=== PATIENT | female | born 1940 | race Asian ===

== ENCOUNTER 2017-02-07 18:12 | Emergency (ER) | payer SELFPAY ==
[~2017-02-07] VITALS: Ht 152.4 cm; Wt 64.9 kg
[2017-02-07 21:27] VITALS: BP 123/75
[2017-02-07 22:23] LABS: Basophils # (auto) 0 uL; Basophils % (auto) 0.2 % (0.0-2.0); Eosinophils # (auto) 0 uL; Eosinophils % (auto) 0.1 % (0.0-7.0); Hematocrit 41.2 % (36.0-46.0); Hemoglobin 13.8 g/dL (12.2-16.2); Lymphocytes # (auto) 1.7 uL; Lymphocytes % (auto) 19.9 % (10.0-50.0); Mean Corpuscular Hemoglobin 32.9 pg (28.0-32.0); Mean Corpuscular Hgb Conc. 33.6 g/dL (32.0-36.0); Mean Corpuscular Volume 97.9 fL (80.0-100.0); Mean Platelet Volume 8.4 fL (6.9-10.8); Monocytes # (auto) 0.6 uL; Monocytes % (auto) 6.9 % (0.0-12.0); Neutrophils # (auto) 6.2 uL; Neutrophils % (auto) 72.9 % (37.0-80.0); Nucleated Red Blood Cells % 0.1 %; Platelet Count (auto) 163 10^3/uL (140-450); Red Cell Distribution Width 13.2 % (11.8-14.3); White Blood Cell 8.5 10^3/uL (4.4-10.8)
[2017-02-07 22:43] LABS: Albumin 3.4 g/dL (3.4-5.0); Bilirubin, Total 0.6 mg/dL (0.2-1.0); Calcium 8.3 mg/dL (8.5-10.1); Potassium 3.9 mmol/L (3.5-5.1); Total Protein 7.6 g/dL (6.4-8.2)
[2017-02-07 23:01] LABS: INR 0.97 (0.9-1.15); Partial Thromboplastin Time 25.8 sec (22.64-33.71); Prothrombin Time 10.6 sec (9.37-12.3)
== END 2017-02-07 23:32 | disposition home or self-care (01) ==
LOC: ER 18:12
DX: J32.9 Chronic sinusitis, unspecified (principal); R04.0 Epistaxis; I10 Essential (primary) hypertension; Z98.51 Tubal ligation status
CPT/HCPCS: 36415; 70450; 80053; 85025; 85610; 85730

== ENCOUNTER 2020-06-18 08:31 | Inpatient (IN) | payer MEDICAID ==
[~2020-06-18] VITALS: Ht 152.4 cm; Wt 58.7 kg
[2020-06-18 09:12] LABS: Basophils # (auto) 0 10 ^3/uL (0-0.2); Basophils % (auto) 0.1 % (0.0-2.0); Eosinophils # (auto) 0 10 ^3/uL (0-0.8); Eosinophils % (auto) 0.2 % (0.0-7.0); Hematocrit 32.1 % (36.0-46.0); Hemoglobin 10.6 g/dL (12.2-16.2); Lymphocytes # (auto) 1.5 10 ^3/uL (0.4-5.4); Lymphocytes % (auto) 17.4 % (10.0-50.0); Mean Corpuscular Hemoglobin 31.1 pg (28.0-32.0); Mean Corpuscular Hgb Conc. 33.2 g/dL (32.0-36.0); Mean Corpuscular Volume 93.7 fL (80.0-100.0); Monocytes # (auto) 0.6 10 ^3/uL (0-1.3); Monocytes % (auto) 7.1 % (0.0-12.0); Neutrophils # (auto) 6.6 10 ^3/uL (1.6-8.6); Neutrophils % (auto) 75.2 % (37.0-80.0); Nucleated Red Blood Cells % 0.1 %; Red Blood Cells 3.42 10^6/uL (4.0-5.20); Red Cell Distribution Width 13.3 % (11.8-14.3); White Blood Cell 8.8 10^3/uL (4.4-10.8)
[2020-06-18 09:30] LABS: Albumin 3.3 g/dL (3.4-5.0); Anion Gap 10 (5-15); Blood Urea Nitrogen 28 mg/dL (7-18); Calcium 8.9 mg/dL (8.5-10.1); Carbon Dioxide 24 mmol/L (21-32); Chloride 106 mmol/L (98-107); Glucose 105 mg/dL (74-106); Magnesium 2.3 mg/dL (1.6-2.6); Potassium 3.5 mmol/L (3.5-5.1); Sodium 140 mmol/L (136-145)
[2020-06-18 09:36] LABS: Alanine Aminotransferase 38 U/L (13-56); Alkaline Phosphatase 73 U/L (45-117); Aspartate Aminotransferase 34 U/L (15-37); BUN/Creatinine Ratio 43.8; Bilirubin, Total 0.4 mg/dL (0.2-1.0); GFR African American 115 mL/min; GFR Non-African American 95 mL/min; Total Protein 7.5 g/dL (6.4-8.2)
[2020-06-18 11:18] LABS: Urine Bacteria NONE SEEN /hpf (None Seen); Urine Blood 1+ /uL (Negative); Urine Mucus FEW (None Seen); Urine Specific Gravity 1.023 (1.001-1.035); Urine WBC 28 /hpf (0 - 5)
[2020-06-18] MEDS ORDERED: ONDANSETRON HCL 4 MG/2 ML VIAL IV PRN (13:30)
[2020-06-18] MEDS ORDERED: NITROGLYCERIN 0.4 MG SL TAB SL PRN (13:30)
[2020-06-18] MEDS ORDERED: LORazepam 2MG/ML-1ML VIAL IV PRN (13:30)
[2020-06-18] MEDS ORDERED: LABETALOL HCL 5 MG/ML 4ML SYRINGE IV PRN (13:30)
[2020-06-18] MEDS ORDERED: POTASSIUM CHLORIDE 20 MEQ, LIDOCAINE 1% (LOCAL ANESTH.) 2 ML in SODIUM CHL 0.9% 100 ML IV ONE (13:30)
[2020-06-18] MEDS: SODIUM CHLORIDE 0.9% 1,000 ML IV SCH ×2 (13:37→15:30)
[2020-06-18] MEDS ORDERED: PRAV20TA3 PO (15:09)
[2020-06-18] MEDS ORDERED: METF-869 PO (15:09)
[2020-06-18] MEDS ORDERED: ATEN25TA PO (15:09)
[2020-06-18 15:10] LABS: INR 0.95 (0.9-1.15); Partial Thromboplastin Time 21.7 sec (23.0-31.2)
[2020-06-18 16:33] VITALS: BP 139/71
[2020-06-18] MEDS: MORPHINE SULFATE INJECTION 2 MG/ML SYRG IV PRN (16:58)
[2020-06-18 22:00] VITALS: BP 143/74
[2020-06-19 05:00] VITALS: BP 129/74
[2020-06-19 07:21] LABS: Basophils # (auto) 0 10 ^3/uL (0-0.2); Basophils % (auto) 0.2 % (0.0-2.0); Eosinophils # (auto) 0 10 ^3/uL (0-0.8); Eosinophils % (auto) 0.1 % (0.0-7.0); Hematocrit 29.9 % (36.0-46.0); Hemoglobin 10.1 g/dL (12.2-16.2); Lymphocytes # (auto) 1.9 10 ^3/uL (0.4-5.4); Lymphocytes % (auto) 20.2 % (10.0-50.0); Mean Corpuscular Hemoglobin 32.1 pg (28.0-32.0); Mean Corpuscular Hgb Conc. 33.9 g/dL (32.0-36.0); Mean Corpuscular Volume 94.5 fL (80.0-100.0); Monocytes # (auto) 0.6 10 ^3/uL (0-1.3); Monocytes % (auto) 6.9 % (0.0-12.0); Neutrophils # (auto) 6.8 10 ^3/uL (1.6-8.6); Neutrophils % (auto) 72.6 % (37.0-80.0); Nucleated Red Blood Cells % 0.3 %; Red Blood Cells 3.16 10^6/uL (4.0-5.20); Red Cell Distribution Width 13.6 % (11.8-14.3); White Blood Cell 9.3 10^3/uL (4.4-10.8)
[2020-06-19 08:00] VITALS: BP 149/75
[2020-06-19] MEDS: cefTRIAXone 1GM/50ML D5W 50 ML IV SCH (08:48)
[2020-06-19] MEDS: MORPHINE SULFATE INJECTION 2 MG/ML SYRG IV PRN ×3 (08:50→20:26)
[2020-06-19] MEDS ORDERED: DEXTROSE (50%) 50ML SYRG IV PRN (09:15)
[2020-06-19] MEDS: PANTOPRAZOLE 40 MG/10 ML VIAL INJ IV SCH (10:03)
[2020-06-19] MEDS: InsuLIN REG 1unit/0.01ml Soln (100units/ml) SC SCH ×3 (11:09→22:47)
[2020-06-19] MEDS: ACCU-CHEK COMFORT CURVE STRIP VI SCH ×3 (11:09→22:45)
[2020-06-19 12:00] VITALS: BP 121/74
[2020-06-19 16:00] VITALS: BP 145/80
[2020-06-19] MEDS ORDERED: AMIODARONE HCL 150 MG in D5W 5% 100 ML IV ONE (21:30)
[2020-06-19] MEDS ORDERED: AMIODARONE HCL (50 MG/ ML) 3 ML VIAL IV ONE (21:41)
[2020-06-19] MEDS ORDERED: AMIODARONE 450mg/250ml AE 250 ML IV ONE (21:42)
[2020-06-19 21:44] LABS: Basophils # (auto) 0 10 ^3/uL (0-0.2); Basophils % (auto) 0.2 % (0.0-2.0); Eosinophils # (auto) 0 10 ^3/uL (0-0.8); Eosinophils % (auto) 0.3 % (0.0-7.0); Hematocrit 28.5 % (36.0-46.0); Hemoglobin 9.5 g/dL (12.2-16.2); Lymphocytes # (auto) 2.3 10 ^3/uL (0.4-5.4); Lymphocytes % (auto) 20.4 % (10.0-50.0); Mean Corpuscular Hgb Conc. 33.2 g/dL (32.0-36.0); Mean Corpuscular Volume 93.5 fL (80.0-100.0); Monocytes # (auto) 0.8 10 ^3/uL (0-1.3); Monocytes % (auto) 7.1 % (0.0-12.0); Red Blood Cells 3.05 10^6/uL (4.0-5.20); Red Cell Distribution Width 13.5 % (11.8-14.3); White Blood Cell 11.1 10^3/uL (4.4-10.8)
[2020-06-19 22:00] VITALS: BP 116/68
[2020-06-19] MEDS: AMIODARONE 450mg/250ml AE 250 ML IV SCH (22:15)
[2020-06-19 22:20] LABS: Albumin 2.8 g/dL (3.4-5.0); Anion Gap 9 (5-15); Blood Urea Nitrogen 20 mg/dL (7-18); Calcium 8.3 mg/dL (8.5-10.1); Carbon Dioxide 22 mmol/L (21-32); Chloride 109 mmol/L (98-107); Glucose 136 mg/dL (74-106); Magnesium 1.9 mg/dL (1.6-2.6); Potassium 3.3 mmol/L (3.5-5.1); Sodium 140 mmol/L (136-145)
[2020-06-19 22:24] LABS: Alanine Aminotransferase 28 U/L (13-56); Alkaline Phosphatase 67 U/L (45-117); Aspartate Aminotransferase 23 U/L (15-37); BUN/Creatinine Ratio 35.1; Bilirubin, Total 0.3 mg/dL (0.2-1.0); GFR African American 132 mL/min; GFR Non-African American 109 mL/min; Phosphorus 3.3 mg/dL (2.5-4.90); Total Protein 6.8 g/dL (6.4-8.2)
[2020-06-20] MEDS: SODIUM CHLORIDE 0.9% 1,000 ML IV SCH ×2 (00:43→15:30)
[2020-06-20] MEDS: MORPHINE SULFATE INJECTION 2 MG/ML SYRG IV PRN ×3 (01:12→14:00)
[2020-06-20 05:00] VITALS: BP 145/77
[2020-06-20] MEDS: ACCU-CHEK COMFORT CURVE STRIP VI SCH ×4 (06:21→22:44)
[2020-06-20] MEDS: InsuLIN REG 1unit/0.01ml Soln (100units/ml) SC SCH ×4 (06:21→22:44)
[2020-06-20 07:22] LABS: Basophils # (auto) 0 10 ^3/uL (0-0.2); Basophils % (auto) 0.3 % (0.0-2.0); Eosinophils # (auto) 0 10 ^3/uL (0-0.8); Eosinophils % (auto) 0.2 % (0.0-7.0); Hematocrit 27.7 % (36.0-46.0); Hemoglobin 9.5 g/dL (12.2-16.2); Lymphocytes # (auto) 1.4 10 ^3/uL (0.4-5.4); Lymphocytes % (auto) 16.9 % (10.0-50.0); Mean Corpuscular Hemoglobin 32.2 pg (28.0-32.0); Mean Corpuscular Hgb Conc. 34.3 g/dL (32.0-36.0); Mean Corpuscular Volume 93.8 fL (80.0-100.0); Monocytes # (auto) 0.6 10 ^3/uL (0-1.3); Monocytes % (auto) 7.3 % (0.0-12.0); Neutrophils # (auto) 6.3 10 ^3/uL (1.6-8.6); Neutrophils % (auto) 75.3 % (37.0-80.0); Red Blood Cells 2.95 10^6/uL (4.0-5.20); Red Cell Distribution Width 13.4 % (11.8-14.3); White Blood Cell 8.3 10^3/uL (4.4-10.8)
[2020-06-20 07:25] LABS: Potassium 3.1 mmol/L (3.5-5.1)
[2020-06-20 07:33] LABS: Magnesium 1.7 mg/dL (1.6-2.6); Phosphorus 3.2 mg/dL (2.5-4.90)
[2020-06-20 07:35] LABS: Albumin 2.7 g/dL (3.4-5.0); BUN/Creatinine Ratio 28.6; Bilirubin, Total 0.3 mg/dL (0.2-1.0); Total Protein 6.5 g/dL (6.4-8.2)
[2020-06-20 08:00] VITALS: BP 142/78
[2020-06-20] MEDS: cefTRIAXone 1GM/50ML D5W 50 ML IV SCH (08:29)
[2020-06-20] MEDS ORDERED: POTASSIUM CHLORIDE 40 MEQ, LIDOCAINE 1% (LOCAL ANESTH.) 4 ML in SODIUM CHL 0.9% 250 ML IV ONE (09:15)
[2020-06-20] MEDS: PANTOPRAZOLE 40 MG/10 ML VIAL INJ IV SCH (10:00)
[2020-06-20 12:00] VITALS: BP 145/83
[2020-06-20] MEDS: AMIODARONE 450mg/250ml AE 250 ML IV SCH ×2 (13:25→15:47)
[2020-06-20 16:00] VITALS: BP 139/72
[2020-06-20 22:00] VITALS: BP 148/80
[2020-06-21] MEDS ORDERED: AMIODARONE HCL 200 MG TAB PO ONE (02:30)
[2020-06-21] MEDS: MORPHINE SULFATE INJECTION 2 MG/ML SYRG IV PRN ×4 (04:59→18:48)
[2020-06-21 05:00] VITALS: BP 151/95
[2020-06-21 06:04] LABS: Basophils # (auto) 0 10 ^3/uL (0-0.2); Basophils % (auto) 0.1 % (0.0-2.0); Eosinophils # (auto) 0 10 ^3/uL (0-0.8); Eosinophils % (auto) 0.3 % (0.0-7.0); Hematocrit 30.2 % (36.0-46.0); Hemoglobin 10.2 g/dL (12.2-16.2); Lymphocytes # (auto) 1.2 10 ^3/uL (0.4-5.4); Lymphocytes % (auto) 12.8 % (10.0-50.0); Mean Corpuscular Hemoglobin 31.3 pg (28.0-32.0); Mean Corpuscular Hgb Conc. 33.7 g/dL (32.0-36.0); Mean Corpuscular Volume 92.9 fL (80.0-100.0); Monocytes # (auto) 0.7 10 ^3/uL (0-1.3); Monocytes % (auto) 6.9 % (0.0-12.0); Neutrophils # (auto) 7.7 10 ^3/uL (1.6-8.6); Neutrophils % (auto) 79.9 % (37.0-80.0); Red Blood Cells 3.25 10^6/uL (4.0-5.20); Red Cell Distribution Width 13.4 % (11.8-14.3); White Blood Cell 9.6 10^3/uL (4.4-10.8)
[2020-06-21 06:22] VITALS: BP 148/92
[2020-06-21 06:22] LABS: Potassium 3.5 mmol/L (3.5-5.1)
[2020-06-21 06:24] LABS: INR 0.97 (0.9-1.15); Partial Thromboplastin Time 23.1 sec (23.0-31.2)
[2020-06-21] MEDS: InsuLIN REG 1unit/0.01ml Soln (100units/ml) SC SCH ×4 (06:24→21:33)
[2020-06-21] MEDS: ACCU-CHEK COMFORT CURVE STRIP VI SCH ×4 (06:24→21:29)
[2020-06-21 06:27] LABS: BUN/Creatinine Ratio 25.6; Calcium 8.5 mg/dL (8.5-10.1)
[2020-06-21 08:30] VITALS: BP 148/87
[2020-06-21] MEDS: PANTOPRAZOLE 40 MG/10 ML VIAL INJ IV SCH (09:22)
[2020-06-21] MEDS: AMIODARONE HCL 200 MG TAB PO SCH ×2 (09:22→21:28)
[2020-06-21] MEDS: SODIUM CHLORIDE 0.9% 1,000 ML IV SCH (09:22)
[2020-06-21] MEDS: cefTRIAXone 1GM/50ML D5W 50 ML IV SCH (09:22)
[2020-06-21] MEDS: ATENOLOL 25 MG TAB PO SCH (09:26)
[2020-06-21 11:59] LABS: Hepatitis B Surface Antibody Negative
[2020-06-21 12:30] VITALS: BP 141/87
[2020-06-21 12:31] LABS: Hepatitis A Total Antibody Positive
[2020-06-21 13:05] LABS: Hepatitis B Core Total AB Negative; Hepatitis B Surface Antigen Negative (Negative)
[2020-06-21 13:07] LABS: Hepatitis C Antibody Positive (Negative)
[2020-06-21 16:32] VITALS: BP 132/69
[2020-06-21] MEDS: PRAVASTATIN SODIUM 20 MG TAB PO SCH (21:29)
[2020-06-21 22:00] VITALS: BP 125/69
[2020-06-22] MEDS: SODIUM CHLORIDE 0.9% 1,000 ML IV SCH ×2 (00:50→17:30)
[2020-06-22 05:00] VITALS: BP 144/85
[2020-06-22] MEDS: MORPHINE SULFATE INJECTION 2 MG/ML SYRG IV PRN ×3 (05:31→21:32)
[2020-06-22 06:04] LABS: Basophils # (auto) 0 10 ^3/uL (0-0.2); Basophils % (auto) 0.3 % (0.0-2.0); Eosinophils # (auto) 0.1 10 ^3/uL (0-0.8); Eosinophils % (auto) 0.8 % (0.0-7.0); Hematocrit 29.3 % (36.0-46.0); Lymphocytes # (auto) 1.3 10 ^3/uL (0.4-5.4); Lymphocytes % (auto) 14.8 % (10.0-50.0); Mean Corpuscular Hemoglobin 31.4 pg (28.0-32.0); Mean Corpuscular Hgb Conc. 34.1 g/dL (32.0-36.0); Mean Corpuscular Volume 92.1 fL (80.0-100.0); Monocytes # (auto) 0.7 10 ^3/uL (0-1.3); Monocytes % (auto) 8.3 % (0.0-12.0); Neutrophils # (auto) 6.8 10 ^3/uL (1.6-8.6); Neutrophils % (auto) 75.8 % (37.0-80.0); Red Blood Cells 3.18 10^6/uL (4.0-5.20); Red Cell Distribution Width 13.7 % (11.8-14.3); White Blood Cell 8.9 10^3/uL (4.4-10.8)
[2020-06-22] MEDS: ACCU-CHEK COMFORT CURVE STRIP VI SCH ×4 (06:16→21:31)
[2020-06-22] MEDS: InsuLIN REG 1unit/0.01ml Soln (100units/ml) SC SCH ×4 (06:16→21:31)
[2020-06-22 06:31] LABS: BUN/Creatinine Ratio 27.9; Calcium 8.8 mg/dL (8.5-10.1); Potassium 3.7 mmol/L (3.5-5.1)
[2020-06-22 08:44] VITALS: BP 155/82
[2020-06-22] MEDS: PANTOPRAZOLE 40 MG/10 ML VIAL INJ IV SCH (10:11)
[2020-06-22] MEDS: AMIODARONE HCL 200 MG TAB PO SCH ×2 (10:12→21:30)
[2020-06-22] MEDS: cefTRIAXone 1GM/50ML D5W 50 ML IV SCH (10:12)
[2020-06-22] MEDS: ATENOLOL 25 MG TAB PO SCH (10:12)
[2020-06-22] MEDS ORDERED: FLUCONAZOLE 200MG/100ML 100 ML IV ONE (11:15)
[2020-06-22] MEDS ORDERED: levoFLOXacin 500MG 100 ML IV ONE (11:15)
[2020-06-22 12:32] VITALS: BP 154/75
[2020-06-22] MEDS: metroNIDAZOLE 500MG/100ML 100 ML IV SCH ×2 (14:00→21:29)
[2020-06-22] MEDS ORDERED: TRANEXAMIC ACID 10 ML ONE (14:27)
[2020-06-22] MEDS ORDERED: BUPIVACAINE 0.25% INJ 50ML VIAL ONE (14:27)
[2020-06-22] MEDS ORDERED: VANCOMYCIN HCL 1000 MG VL ONE (14:28)
[2020-06-22] MEDS ORDERED: ceFAZolin 1GM/50ML 100 ML IV ONE (14:35)
[2020-06-22] MEDS ORDERED: PHENYLEPHRINE HCL 10 MG/ML VL IV ONE (15:28)
[2020-06-22] MEDS ORDERED: TETRACAINE 1% INJ 2 ML VIAL IJ ONE (15:31)
[2020-06-22] MEDS ORDERED: fentaNYL CITRATE 100 MCG/2 ML VL ONE (15:34)
[2020-06-22] MEDS ORDERED: MIDAZOLAM HCL 2MG/2ML 2ml VIAL (1mg/ml) ONE ×2 (15:34→16:38)
[2020-06-22] MEDS ORDERED: DexAMETHasone SOD PHOS 10MG/1ML VIAL INJ ONE (16:19)
[2020-06-22] MEDS ORDERED: PROPOFOL 10 MG/ML 20 ML IV ONE (16:34)
[2020-06-22] MEDS ORDERED: EPINEPHrine HCL 1 MG/1 ML AMP ONE ×2 (16:36→16:42)
[2020-06-22] MEDS ORDERED: LABETALOL HCL 5 MG/ML 4ML SYRINGE IV PRN (16:45)
[2020-06-22] MEDS ORDERED: ePHEDrine SULFATE 50 MG/ML AMP IV PRN (16:45)
[2020-06-22] MEDS ORDERED: MORPHINE SULFATE 4 MG/ML SYR/VIAL IV PRN (16:45)
[2020-06-22] MEDS ORDERED: HYDROmorphone HCL 2 MG/ML VL IV PRN (16:45)
[2020-06-22] MEDS ORDERED: MIDAZOLAM HCL 2MG/2ML 2ml VIAL (1mg/ml) IV PRN (16:45)
[2020-06-22] MEDS: LACTATED RINGER'S 1,000 ML IV SCH (18:15)
[2020-06-22] MEDS: PRAVASTATIN SODIUM 20 MG TAB PO SCH (21:30)
[2020-06-22 21:51] VITALS: BP 139/72
[2020-06-22] MEDS ORDERED: ceFAZolin 1GM/50ML 50 ML IV SCH (22:00)
[2020-06-22] MEDS: ceFAZolin 2 GM in D5W 5% 100 ML IV SCH (22:20)
[2020-06-22] MEDS: KETOROLAC TROMETH 30 MG/ML 1ML VIAL IV SCH (23:54)
[2020-06-23] MEDS: MORPHINE SULFATE INJECTION 2 MG/ML SYRG IV PRN ×2 (02:53→09:38)
[2020-06-23] MEDS: LACTATED RINGER'S 1,000 ML IV SCH ×2 (04:15→07:31)
[2020-06-23 05:14] VITALS: BP 138/60
[2020-06-23 05:36] LABS: Basophils # (auto) 0 10 ^3/uL (0-0.2); Basophils % (auto) 0.1 % (0.0-2.0); Eosinophils # (auto) 0 10 ^3/uL (0-0.8); Hematocrit 26.6 % (36.0-46.0); Hemoglobin 8.8 g/dL (12.2-16.2); Lymphocytes # (auto) 0.7 10 ^3/uL (0.4-5.4); Lymphocytes % (auto) 5.8 % (10.0-50.0); Mean Corpuscular Hemoglobin 30.5 pg (28.0-32.0); Mean Corpuscular Volume 92.6 fL (80.0-100.0); Monocytes # (auto) 0.5 10 ^3/uL (0-1.3); Monocytes % (auto) 3.9 % (0.0-12.0); Neutrophils # (auto) 10.5 10 ^3/uL (1.6-8.6); Neutrophils % (auto) 90.2 % (37.0-80.0); Red Blood Cells 2.87 10^6/uL (4.0-5.20); Red Cell Distribution Width 13.5 % (11.8-14.3); White Blood Cell 11.6 10^3/uL (4.4-10.8)
[2020-06-23] MEDS: metroNIDAZOLE 500MG/100ML 100 ML IV SCH ×3 (05:41→22:55)
[2020-06-23] MEDS: ceFAZolin 2 GM in D5W 5% 100 ML IV SCH (05:41)
[2020-06-23] MEDS: KETOROLAC TROMETH 30 MG/ML 1ML VIAL IV SCH ×4 (05:42→23:31)
[2020-06-23] MEDS: ACCU-CHEK COMFORT CURVE STRIP VI SCH ×4 (05:42→22:00)
[2020-06-23] MEDS: InsuLIN REG 1unit/0.01ml Soln (100units/ml) SC SCH ×4 (06:13→23:15)
[2020-06-23 06:29] LABS: Calcium 7.2 mg/dL (8.5-10.1); Potassium 3.3 mmol/L (3.5-5.1)
[2020-06-23 09:00] VITALS: BP 135/58
[2020-06-23] MEDS: FLUCONAZOLE 200MG/100ML 100 ML IV SCH (09:36)
[2020-06-23] MEDS: AMIODARONE HCL 200 MG TAB PO SCH ×2 (09:38→22:55)
[2020-06-23] MEDS: PANTOPRAZOLE 40 MG/10 ML VIAL INJ IV SCH (09:38)
[2020-06-23] MEDS: RIVAROXABAN 10 MG TAB PO SCH (09:38)
[2020-06-23] MEDS: ATENOLOL 25 MG TAB PO SCH (09:39)
[2020-06-23] MEDS ORDERED: LABETALOL HCL 5 MG/ML 4ML SYRINGE IV PRN (09:45)
[2020-06-23] MEDS ORDERED: POTASSIUM CHL 20 Meq TABLET PO ONE (09:45)
[2020-06-23] MEDS: PANTOPRAZOLE 40 MG TAB PO SCH (10:00)
[2020-06-23] MEDS: SODIUM CHLORIDE 0.9% 1,000 ML IV SCH (10:10)
[2020-06-23] MEDS: levoFLOXacin 500MG 100 ML IV SCH (12:16)
[2020-06-23 13:58] VITALS: BP 132/67
[2020-06-23 16:28] VITALS: BP 120/72
[2020-06-23 22:00] VITALS: BP 108/75
[2020-06-23] MEDS: PRAVASTATIN SODIUM 20 MG TAB PO SCH (22:55)
[2020-06-24] MEDS: SODIUM CHLORIDE 0.9% 1,000 ML IV SCH (02:50)
[2020-06-24 05:06] VITALS: BP 126/71
[2020-06-24 06:01] LABS: Basophils # (auto) 0 10 ^3/uL (0-0.2); Eosinophils # (auto) 0 10 ^3/uL (0-0.8); Hemoglobin 7.6 g/dL (12.2-16.2); Lymphocytes # (auto) 0.9 10 ^3/uL (0.4-5.4); Monocytes # (auto) 1.2 10 ^3/uL (0-1.3); Neutrophils # (auto) 15.3 10 ^3/uL (1.6-8.6)
[2020-06-24 06:04] LABS: Hematocrit 22.4 % (36.0-46.0); Mean Corpuscular Hemoglobin 31.2 pg (28.0-32.0); Mean Corpuscular Hgb Conc. 33.9 g/dL (32.0-36.0); Mean Corpuscular Volume 92.2 fL (80.0-100.0); Monocytes % (auto) 6.9 % (0.0-12.0); Neutrophils % (auto) 88.1 % (37.0-80.0); Nucleated Red Blood Cells % 0.1 %; Red Blood Cells 2.43 10^6/uL (4.0-5.20); Red Cell Distribution Width 13.5 % (11.8-14.3); White Blood Cell 17.4 10^3/uL (4.4-10.8)
[2020-06-24 06:16] LABS: Potassium 3.7 mmol/L (3.5-5.1)
[2020-06-24 06:20] LABS: BUN/Creatinine Ratio 51.1
[2020-06-24] MEDS: KETOROLAC TROMETH 30 MG/ML 1ML VIAL IV SCH (06:25)
[2020-06-24] MEDS: metroNIDAZOLE 500MG/100ML 100 ML IV SCH (06:25)
[2020-06-24] MEDS: ACCU-CHEK COMFORT CURVE STRIP VI SCH ×4 (06:25→21:31)
[2020-06-24] MEDS: InsuLIN REG 1unit/0.01ml Soln (100units/ml) SC SCH ×4 (06:58→21:34)
[2020-06-24] MEDS: AMIODARONE HCL 200 MG TAB PO SCH ×2 (08:25→21:30)
[2020-06-24] MEDS: RIVAROXABAN 10 MG TAB PO SCH (08:26)
[2020-06-24] MEDS: MORPHINE SULFATE INJECTION 2 MG/ML SYRG IV PRN (08:26)
[2020-06-24] MEDS: PANTOPRAZOLE 40 MG TAB PO SCH (08:26)
[2020-06-24] MEDS: FLUCONAZOLE 200MG/100ML 100 ML IV SCH (08:26)
[2020-06-24] MEDS: ATENOLOL 25 MG TAB PO SCH (08:28)
[2020-06-24 09:00] VITALS: BP 118/68
[2020-06-24] MEDS: levoFLOXacin 500MG 100 ML IV SCH (10:16)
[2020-06-24] MEDS ORDERED: DOCUSATE SOD 100 MG CAP PO ONE (10:30)
[2020-06-24 13:00] VITALS: BP 121/64
[2020-06-24] MEDS: metroNIDAZOLE 500 MG TAB PO SCH ×2 (14:23→21:30)
[2020-06-24 16:42] VITALS: BP 127/66
[2020-06-24] MEDS: DOCUSATE SOD 100 MG CAP PO SCH (21:30)
[2020-06-24] MEDS: PRAVASTATIN SODIUM 20 MG TAB PO SCH (21:31)
[2020-06-24 22:00] VITALS: BP 114/68
[2020-06-25 05:29] VITALS: BP 145/69
[2020-06-25 06:00] LABS: Basophils # (auto) 0 10 ^3/uL (0-0.2); Basophils % (auto) 0.1 % (0.0-2.0); Eosinophils # (auto) 0 10 ^3/uL (0-0.8); Hemoglobin 8.2 g/dL (12.2-16.2); Lymphocytes # (auto) 2.1 10 ^3/uL (0.4-5.4); Neutrophils # (auto) 9.5 10 ^3/uL (1.6-8.6)
[2020-06-25 06:04] LABS: Eosinophils % (auto) 0.2 % (0.0-7.0); Hematocrit 24.7 % (36.0-46.0); Lymphocytes % (auto) 16.4 % (10.0-50.0); Mean Corpuscular Hemoglobin 30.8 pg (28.0-32.0); Mean Corpuscular Hgb Conc. 33.3 g/dL (32.0-36.0); Mean Corpuscular Volume 92.7 fL (80.0-100.0); Monocytes # (auto) 1.1 10 ^3/uL (0-1.3); Monocytes % (auto) 8.4 % (0.0-12.0); Neutrophils % (auto) 74.9 % (37.0-80.0); Red Blood Cells 2.66 10^6/uL (4.0-5.20); White Blood Cell 12.7 10^3/uL (4.4-10.8)
[2020-06-25 06:17] LABS: Potassium 3.8 mmol/L (3.5-5.1)
[2020-06-25 06:21] LABS: BUN/Creatinine Ratio 41.5; Calcium 7.9 mg/dL (8.5-10.1)
[2020-06-25] MEDS: InsuLIN REG 1unit/0.01ml Soln (100units/ml) SC SCH ×4 (06:21→21:37)
[2020-06-25] MEDS: ACCU-CHEK COMFORT CURVE STRIP VI SCH ×4 (06:21→21:36)
[2020-06-25] MEDS: metroNIDAZOLE 500 MG TAB PO SCH ×3 (06:21→21:35)
[2020-06-25 09:00] VITALS: BP 127/60
[2020-06-25] MEDS: RIVAROXABAN 10 MG TAB PO SCH (10:12)
[2020-06-25] MEDS: DOCUSATE SOD 100 MG CAP PO SCH ×2 (10:12→21:35)
[2020-06-25] MEDS: PANTOPRAZOLE 40 MG TAB PO SCH (10:12)
[2020-06-25] MEDS: AMIODARONE HCL 200 MG TAB PO SCH ×2 (10:13→21:35)
[2020-06-25] MEDS: levoFLOXacin 250 MG TAB PO SCH (10:13)
[2020-06-25] MEDS: FLUCONAZOLE 100 MG TAB PO SCH (10:13)
[2020-06-25] MEDS: ATENOLOL 25 MG TAB PO SCH (10:14)
[2020-06-25] MEDS: HYDROcodone-ACET 5/325MG TAB PO PRN ×2 (11:07→18:22)
[2020-06-25 13:00] VITALS: BP 148/74
[2020-06-25] MEDS: Glucerna Carbsteady SHAKE Vanilla 8oz PO SCH ×2 (13:50→18:11)
[2020-06-25 16:47] VITALS: BP 130/69
[2020-06-25] MEDS: PRAVASTATIN SODIUM 20 MG TAB PO SCH (21:36)
[2020-06-25 21:37] VITALS: BP 138/66
[2020-06-26 05:00] VITALS: BP 145/70
[2020-06-26] MEDS: metroNIDAZOLE 500 MG TAB PO SCH ×2 (05:49→16:21)
[2020-06-26] MEDS: HYDROcodone-ACET 5/325MG TAB PO PRN ×2 (06:07→16:19)
[2020-06-26] MEDS: InsuLIN REG 1unit/0.01ml Soln (100units/ml) SC SCH ×3 (06:12→17:00)
[2020-06-26] MEDS: ACCU-CHEK COMFORT CURVE STRIP VI SCH ×3 (06:12→18:35)
[2020-06-26 06:23] LABS: Basophils # (auto) 0 10 ^3/uL (0-0.2); Basophils % (auto) 0.1 % (0.0-2.0); Mean Corpuscular Hgb Conc. 33.8 g/dL (32.0-36.0); Monocytes # (auto) 0.7 10 ^3/uL (0-1.3)
[2020-06-26 06:25] LABS: Eosinophils # (auto) 0 10 ^3/uL (0-0.8); Eosinophils % (auto) 0.6 % (0.0-7.0); Hematocrit 23.9 % (36.0-46.0); Hemoglobin 8.1 g/dL (12.2-16.2); Lymphocytes % (auto) 22.7 % (10.0-50.0); Mean Corpuscular Volume 91.5 fL (80.0-100.0); Monocytes % (auto) 8.4 % (0.0-12.0); Neutrophils % (auto) 68.2 % (37.0-80.0); Nucleated Red Blood Cells % 0.2 %; Red Blood Cells 2.61 10^6/uL (4.0-5.20); Red Cell Distribution Width 14.1 % (11.8-14.3); White Blood Cell 8.7 10^3/uL (4.4-10.8)
[2020-06-26 06:39] LABS: BUN/Creatinine Ratio 42.6
[2020-06-26 07:50] VITALS: BP 152/81
[2020-06-26] MEDS: PANTOPRAZOLE 40 MG TAB PO SCH (09:26)
[2020-06-26] MEDS: RIVAROXABAN 10 MG TAB PO SCH (09:26)
[2020-06-26] MEDS: Glucerna Carbsteady SHAKE Vanilla 8oz PO SCH ×2 (09:26→12:21)
[2020-06-26] MEDS: AMIODARONE HCL 200 MG TAB PO SCH (09:27)
[2020-06-26] MEDS: levoFLOXacin 250 MG TAB PO SCH (09:27)
[2020-06-26] MEDS: DOCUSATE SOD 100 MG CAP PO SCH (09:28)
[2020-06-26] MEDS: FLUCONAZOLE 100 MG TAB PO SCH (09:28)
[2020-06-26] MEDS: ATENOLOL 25 MG TAB PO SCH (09:28)
[2020-06-26 16:46] VITALS: BP 158/74
[2020-06-26 17:18] VITALS: BP 145/70
== END 2020-06-26 18:30 | disposition home or self-care (01) | DRG 301 ==
LOC: EDBD 08:31 → ER 08:31 → TELE 13:17 → TELE-CENTR 14:43
PROVIDERS: ADMIT Family Medicine; ATTEND Internal Medicine
PROC: 0SRS0J9 Replacement of Left Hip Joint, Femoral Surface with Synthetic Substitute, Cemented, Open Approach (ICD-10-PCS; principal; 2020-06-22 15:45)
PROC: 0UPH7YZ Removal of Other Device from Vagina and Cul-de-sac, Via Natural or Artificial Opening (ICD-10-PCS; 2020-06-22 15:45)
DX: S72.002A Fracture of unspecified part of neck of left femur, initial encounter for closed fracture (principal); N17.0 Acute kidney failure with tubular necrosis; E44.0 Moderate protein-calorie malnutrition; I48.0 Paroxysmal atrial fibrillation; E11.21 Type 2 diabetes mellitus with diabetic nephropathy; I48.92 Unspecified atrial flutter; E87.1 Hypo-osmolality and hyponatremia; D62 Acute posthemorrhagic anemia; B19.20 Unspecified viral hepatitis C without hepatic coma; E86.0 Dehydration; E11.22 Type 2 diabetes mellitus with diabetic chronic kidney disease; Z20.822 Contact with and (suspected) exposure to COVID-19; N89.8 Other specified noninflammatory disorders of vagina; D63.8 Anemia in other chronic diseases classified elsewhere; N39.0 Urinary tract infection, site not specified; E78.5 Hyperlipidemia, unspecified; N18.9 Chronic kidney disease, unspecified; E87.6 Hypokalemia; W18.39XA Other fall on same level, initial encounter; Z74.01 Bed confinement status; Z68.25 Body mass index [BMI] 25.0-25.9, adult; Z90.49 Acquired absence of other specified parts of digestive tract; Z98.51 Tubal ligation status; Y93.89 Activity, other specified; Y92.89 Other specified places as the place of occurrence of the external cause; Y99.8 Other external cause status; I70.0 Atherosclerosis of aorta
CPT/HCPCS: 36415; 51702; 71045; 72170; 72192; 73502; 80048; 80053; 81001; 82962; 83036; 83735; 83880; 84100; 84443; 84484; 85025; 85610; 85730; 86704; 86706; 86708; 86803; 86850; 86900; 86901; 87070; 87075; 87076; 87077; 87086; 87088; 87186; 87205; 87340; 87426; 93005; 93306; 93970; 97110; 97116; 97163; 97530; A4565; C9113; G0378; J0171; J0690; J0696; J1100; J1450; J1815; J1885; J1956; J2001; J2250; J2405; J2704; J3490; J7060

== ENCOUNTER 2024-10-16 09:30 | Inpatient (IN) | payer MEDICAID ==
[2024-10-16] VITALS (47 sets, daily range): BP systolic 87–124; BP diastolic 38–65; PULSE 78–136; RESP 12–20; TEMP 98.1–98.9; O2SAT 90–100
[~2024-10-16] VITALS: Ht 162.6 cm; Wt 59.1 kg
[~2024-10-16 09:30] MED LIST: ATEN25TA PO; METF-869 PO; PRAV20TA3 PO
--- NOTE | 2024-10-16 09:56 | ED.PDOC ---
History of Present Illness HPI Comments 84-year-old female who is Greenlandic in speaking, BIBA with prior medical history of dementia, high lipids, hypertension, diabetes: Surgical history of BTL and the chief complaint of general weakness. EMS report that the family member informed him that the patient has one episode of emesis two days ago and he is usually altered with dementia and is more this month. EMS on scene reports the patient had a saturation of 80% on room air and was given nasal [place] of 4 L which brought it up to 90%. Denies chills, fever, /D, SOB, CP. No other associated symptoms, modifiers, recent injuries or sick contacts present at this time. Time Seen by MD: 09:30 Primary Care Provider: UNK Reviewed Notes: Nurses Notes, Medications, Allergies Allergies: Coded Allergies: NO KNOWN ALLERGIES (Unverified , 11/20/12) Home Meds Reported Medications Atenolol (Atenolol) 25 Mg Tab, 1 TAB PO DAILYPRN 06/18/20 Pravastatin Sodium (PRAVACHOL TABLET) 20 Mg Tb, 1 TAB PO 06/18/20 Metformin Hydrochloride (Metformin Hydrochloride) 500 Mg Tab, 1 TAB PO BID 06/18/20 Information Source: Patient Mode of Arrival: EMS Severity: Moderate Timing: Came on: Gradually Duration: Since onset Prehospital treatment: None Past Medical History PAST MEDICAL HISTORY: Dementia, DM, High Lipids, HTN Surgical History: BTL SPECIALIZED DEVELOPER History: No Pertinent SPECIALIZED DEVELOPER History Family History Family History: Reviewed,noncontributory to illness, Unknown Social History Smoker: Non-Smoker Alcohol: Denies ETOH Use Drugs: Denies Drug Use Lives In: Home Constitutional: reports: weakness; denies: chills, diaphoresis, fatigue, fever, malaise, sweats, others EENTM: denies: blurred vision, double vision, ear bleeding, ear discharge, ear drainage, ear pain, ear ringing, eye pain, eye redness, hearing loss, mouth pain, mouth swelling, nasal discharge, nose bleeding, nose congestion, nose pain, photophobia, tearing, throat pain, throat swelling, voice changes, others Respiratory: denies: cough, hemoptysis, orthopnea, SOB at rest, shortness of breath, SOB with excertion, stridor, wheezing, others Cardiovascular: denies: chest pain, dizzy spells, diaphoresis, Dyspnea on exertion, edema, irregular heart beat, left arm pain, lightheadedness, palpitations, PND, syncope, others Gastrointestinal: reports: nausea, vomiting; denies: abdomen distended, abdominal pain, blood streaked bowels, constipated, diarrhea, dysphagia, difficulty swallowing, hematemesis, melena, poor appetite, poor fluid intake, rectal bleeding, rectal pain, others Genitourinary: denies: abnormal vagina bleeding, burning, dyspareunia, dysuria, flank pain, frequency, hematuria, incontinence, pain, , vagina discharge, urgency, others Neurological: denies: dizziness, fainting, headache, left sided numbness, left sided weakness, numbness, paresthesia, pre-existing deficit, right sided numbness, right sided weakness, seizure, speech problems, tingling, tremors, weakness, others Musculoskeletal: denies: back pain, gout, joint pain, joint swelling, muscle pain, muscle stiffness, neck pain, others Integumetry: denies: bruises, change in color, change in hair/nails, dryness, laceration, lesions, lumps, rash, wounds, others Allergic/Immunocompromised: denies: Difficulty Healing, Frequent Infections, Hives, Itching, others Hematologic/Lymphatic: denies: anemia, blood clots, easy bleeding, easy bruising, swollen glands, others Endocrine: denies: excessive hunger, excessive sweating, excessive thirst, excessive urination, flushing, intolerance to cold, intolerance to heat, unexplained weight gain, unexplained weight loss, others Psychiatric: denies: anxiety, bipolar disorder, depression, hopeless, panic disorder, schizophrenia, sleepless, suicidal, others All Other Systems: Reviewed and Negative Physical Exam General Appearance: Moderate Distress, Normal HEENT: Normal ENT Inspection, Pharynx Normal, TMs Normal Neck: Full Range of Motion, Non-Tender, Normal, Normal Inspection Respiratory: Chest Non-Tender, Lungs Clear, No Accessory Muscle Use, No Respiratory Distress, Normal Breath Sounds Cardiovascular: No Edema, No JVD, No Murmur, No Gallop, Normal Peripheral Pulses, Regular Rate/Rhythm Breast Exam: Deferred Gastrointestinal: No Organomegaly, Non Tender, No Pulsatile Mass, Normal Bowel Sounds, Soft Genitalia: Deferred Pelvic: Deferred Rectal: Deferred Extremities: No calf tenderness, Normal capillary refill, Normal inspection, Normal range of motion, Non-tender, No pedal edema Musculoskeletal : Apperance: Normal Neurologic: Alert, patient experience coordinator II-XII nml as Tested, No Motor Deficits, Normal Affect, Normal Mood, No Sensory Deficits Cerebellar Function: NOT DONE Reflexes: NOT DONE Skin: Dry, Normal Color, Warm Peripheral Pulses: 3+ Radial (R), 3+ Radial (L) Lymphatic: No Adenopathy Was a procedure done? Was a procedure done?: Yes Sedation Sedation?: No Central Line Recorder of insertion practice: Party Chief Occupation of non licensed operator: Attending Physician Indication: Hypotension, CVP monitoring Room prepared for procedure: Yes Party Chief performed hand hygien: Yes Maximal sterile barrier precau: Mask/Eye shield, Sterile gown Skin Preparation: Chlorhexidine gluconate Skin preparation completely dr: Yes Insertion site: Right, Internal jugular Central line catheter type: [id number] dialysis Number of lumens: 3 Antiseptic ointment applied to: Yes Post Assessment: Chest X-Ray Intubation Indication: Respiratory Insufficiency Prep: Preoxygenation Pretreated with: Analgesia, Sedation Medicated with: Vecuronium Intubation Approach: Orotracheal Intubation size: cm (8) EKG EKG : Pulse Rate (adult): 119 [place]: Normal Cardiac Rhythm: ST Block: None Hypertrophy: None ST: Normal Differential Dx Considerations may include: Metabolic encephalopathy Electrolyte imbalance X-Ray, Labs, Meds, VS Vital Signs Date Time Temp Pulse Resp B/P (MAP) Pulse Ox O2 Delivery O2 Flow Rate FiO2 10/16/24 12:00 162/66 10/16/24 12:00 163/99 10/16/24 12:00 162/66 10/16/24 12:00 135 18 162/66 (98) 99 10/16/24 11:45 135 18 152/63 (92) 99 10/16/24 11:43 131 10/16/24 11:30 132 18 159/63 (95) 99 10/16/24 11:15 137 18 144/86 (105) 99 10/16/24 11:00 136 18 145/84 (104) 99 10/16/24 10:45 133 18 99 Mechanical Ventilator+ 0 100 100 10/16/24 10:45 131 18 151/84 (106) 99 10/16/24 10:40 121 16 100 100 10/16/24 10:30 123 18 129/69 (89) 99 10/16/24 10:16 121 16 100 100 10/16/24 10:15 122 18 152/77 (102) 99 10/16/24 10:15 98.9 116 15 130/83 97 98.9 10/16/24 10:00 97.1 120 18 144/79 (100) 99 97.1 10/16/24 09:58 151/84 10/16/24 09:56 119 10/16/24 09:32 119 Lab Test 10/16/24 12:07 Range/Units Blood Gas Specimen Type Arterial Blood Gas Sample Site Right radial Blood Gas Patient Temperature 37.0 Arterial Blood Date Drawn [id number] Arterial Blood pH 7.311 L 7.350-7.450 Arterial Blood Partial Pressure CO2 45.0 32.0-45.0 mmHg Arterial Blood Partial Pressure O2 271.3 H 83.0-108.0 mmHg Arterial Blood HCO3 22.2 21.0-28.0 mmol/L Arterial Blood Oxygen Saturation 99.7 H 94.0-98.0 % Arterial Blood Base Excess -4.1 L -2.0-3.0 mmol/L Arterial Blood Oxyhemoglobin 98.2 H 94.0-98.0 % Arterial Blood Carboxyhemoglobin 0.7 0.5-1.5 % Arterial Blood Methemoglobin 0.8 0.0-1.5 % Margarito Test Modified Blood Gas Total Hemoglobin 15.30 12.0-16.0 g/dL Blood Gas Set Respiration Rate 16.0 Blood Gas Modality Vent - ac FiO2 % 100.0 Blood Gas Tidal Volume 400.0 Blood Gas PEEP or CPAP 5.0 Current Medications Medications (Trade) Dose Ordered Sig/Bryon Route Start Time Stop Time Status Last Admin Methylprednisolone Sodium Succinate (Solu Medrol) 125 mg ONCE ONCE IV 10/16/24 09:45 10/16/24 09:46 DC 10/16/24 13:02 Albuterol (Ventolin Medneb) 5 mg ONCE ONCE NEB 10/16/24 09:45 10/16/24 09:46 DC 10/16/24 10:37 Ipratropium [place] (Atrovent Medneb) 0.5 mg ONCE ONCE NEB 10/16/24 09:45 10/16/24 09:46 DC 10/16/24 10:38 Sodium Chloride 1,000 ml @ 1,000 mls/hr Q1H ONCE IV 10/16/24 09:45 10/16/24 10:44 DC 10/16/24 10:00 Sodium Chloride 1,000 ml @ 150 mls/hr Q6H40M ONCE IV 10/16/24 09:45 10/16/24 16:24 DC 10/16/24 11:00 Adenosine (Adenosine) 6 mg ONCE ONCE IV 10/16/24 11:30 10/16/24 11:39 DC 10/16/24 10:23 Propofol 100 ml @ 1.347 mls/ hr Q24H IV 10/16/24 11:30 10/16/24 12:00 Fentanyl Citrate 250 ml @ 2.5 mls/hr Q24H IV 10/16/24 11:30 10/16/24 12:00 Rocuronium [place] 100 mg ONCE ONCE IV 10/16/24 09:50 10/16/24 13:09 DC 10/16/24 09:58 Etomidate 20 mg ONCE ONCE IV 10/16/24 09:50 10/16/24 13:09 DC 10/16/24 09:58 Patient altered. On oxygen. Had to be intubated. Establish intravenous access. Was given fluids pain Central line. Waiting for family. Sepsis protocol. EKG reviewed does not show any acute changes. Continue monitoring. Time of 1ST Reevaluation: 10:00 Reevaluation 1ST: Unchanged Patient Education/Counseling: Diagnosis, Treatment, Prognosis Family Education/Counseling: No Family Present SEPSIS Sepsis Screen Physician Orders Urinalysis (10/16/24 09:37) Chest Portable (10/16/24 09:37) Accucheck (10/16/24 09:37) Blood Culture (10/16/24 09:37) Cefepime 1gm/ 50ml (Maxipime 1gm/50ml) (10/16/24 14:00) Notify Md If Map <65 Or Bp<90 (10/16/24 09:37) If Map<65 Start Vasopressor (10/16/24 09:37) Sepsis Reassesment After Fluid (10/16/24 10:37) Head Without Contrast (10/16/24 09:44) Electrocardigram (10/16/24 09:49) Abg W/ Co-Ox (10/16/24 11:00) Respiratory Culture W/ Gs (10/16/24 10:15) Ventilator Orders (10/16/24 10:15) Insert/Manage Urinary Catheter QSHIFT (10/16/24 11:07) Ngt/Ogt (10/16/24 ) Propofol (Diprivan) (10/16/24 11:30) Fentanyl Drip 2500mcg/250mlns (10/16/24 11:30) Rass Sedation Scale Q1HR (10/16/24 11:25) Vital Signs Date Time Temp Pulse Resp B/P (MAP) Pulse Ox O2 Delivery O2 Flow Rate FiO2 10/16/24 12:00 162/66 10/16/24 12:00 163/99 10/16/24 12:00 162/66 10/16/24 12:00 135 18 162/66 (98) 99 10/16/24 11:45 135 18 152/63 (92) 99 10/16/24 11:43 131 10/16/24 11:30 132 18 159/63 (95) 99 10/16/24 11:15 137 18 144/86 (105) 99 10/16/24 11:00 136 18 145/84 (104) 99 10/16/24 10:45 133 18 99 Mechanical Ventilator+ 0 100 100 10/16/24 10:45 131 18 151/84 (106) 99 10/16/24 10:40 121 16 100 100 10/16/24 10:30 123 18 129/69 (89) 99 10/16/24 10:16 121 16 100 100 10/16/24 10:15 122 18 152/77 (102) 99 10/16/24 10:15 98.9 116 15 130/83 97 98.9 10/16/24 10:00 97.1 120 18 144/79 (100) 99 97.1 10/16/24 09:58 151/84 10/16/24 09:56 119 10/16/24 09:32 119 Medications Medications Dose Ordered Sig/Bryon Route Start Time Stop Time Status Last Admin Dose Admin Adenosine 6 mg ONCE ONCE IV 10/16/24 11:30 10/16/24 11:39 DC 10/16/24 10:23 Albuterol 5 mg ONCE ONCE NEB 10/16/24 09:45 10/16/24 09:46 DC 10/16/24 10:37 Etomidate 20 mg ONCE ONCE IV 10/16/24 09:50 10/16/24 13:09 DC 10/16/24 09:58 Fentanyl Citrate 250 ml @ 2.5 mls/hr Q24H IV 10/16/24 11:30 10/16/24 12:00 Ipratropium [place] 0.5 mg ONCE ONCE NEB 10/16/24 09:45 10/16/24 09:46 DC 10/16/24 10:38 Methylprednisolone Sodium Succinate 125 mg ONCE ONCE IV 10/16/24 09:45 10/16/24 09:46 DC 10/16/24 13:02 Propofol 100 ml @ 1.347 mls/ hr Q24H IV 10/16/24 11:30 10/16/24 12:00 Rocuronium [place] 100 mg ONCE ONCE IV 10/16/24 09:50 10/16/24 13:09 DC 10/16/24 09:58 Sodium Bicarbonate 50 ml STK-MED ONCE .ROUTE 10/16/24 11:35 10/16/24 11:31 DC 10/16/24 11:35 Sodium Chloride 1,000 ml @ 150 mls/hr Q6H40M ONCE IV 10/16/24 09:45 10/16/24 16:24 DC 10/16/24 11:00 Sodium Chloride 1,000 ml @ 1,000 mls/hr Q1H ONCE IV 10/16/24 09:45 10/16/24 10:44 DC 10/16/24 10:00 Departure 1 Departure Time of Disposition: 18:01 Impression: Primary Impression: Metabolic encephalopathy Additional Impression: Sepsis, unspecified organism Qualified Codes: A41.9 - Sepsis, unspecified organism Disposition: ADMITTED INPATIENT Admit to: Med Surg Condition: Guarded Critical Care Note Critical Care Time?: Yes (90 min-critical care time only) Stability Stability form required: No Heart Score Heart Score: Heart Score Response (Comments) Value History Slightly Suspicious 0 EKG Normal 0 Age >65 2 Risk Factors >3 or Hx ASHD 2 Troponin Normal limit 0 Total 4 I personally scribed for SORIN SANTOS MD ([email or web address]) on 10/16/24 at 09:56. Electronically submitted by Brijesh Kiser ([email or web address]). SORIN SANTOS MD Oct 16, 2024 09:56
[2024-10-16] MEDS: ROCURONIUM 10MG/ML 10ML VIAL IV ONE ×2 (09:58)
[2024-10-16] MEDS: ETOMIDATE (2MG/ML) 20ML VIAL IV ONE ×2 (09:58)
[2024-10-16] MEDS: SODIUM CHLORIDE 0.9% 1,000 ML IV ONE ×2 (10:00→11:00)
[2024-10-16] MEDS: ADENOSINE 6 MG/2 ML INJ IV ONE ×2 (10:23)
[2024-10-16] MEDS: ALBUTEROL SULF 2.5 MG/0.5ML(0.5%) NEB SOLN NEB ONE (10:37)
[2024-10-16] MEDS: IPRATROPIUM BROM 0.5 MG/2.5ML INH SOL NEB ONE (10:38)
[2024-10-16] MEDS: SODIUM BICARB 8.4% 50Meq/50ml SYR INJ ONE (11:35)
[2024-10-16] MEDS: PROPOFOL 100 ML IV SCH (12:00)
[2024-10-16] MEDS: PROPOFOL 100 ML IV ONE (12:00)
[2024-10-16] MEDS: fentaNYL Drip 2500mCg/250mlNS 250 ML IV SCH (12:00)
--- NOTE | 2024-10-16 12:02 | DVH ---
CHEST RADIOGRAPH Indication: Intubation and Central Line Placement Technique: Single frontal view of the chest was obtained COMPARISON: CHEST PORTABLE on DOS: 06/18/20 FINDINGS: Lines and Tubes: Endotracheal tube and right central venous catheter in satisfactory position. Lungs: Left basilar subsegmental atelectasis. Pleura: No effusion. No pneumothorax. Cardiomediastinal contours: Unremarkable Bones: Unremarkable IMPRESSION: Endotracheal tube and right central venous catheter in satisfactory position.
[2024-10-16 12:10] LABS: Base Excess -4.1 mmol/L (-2.0-3.0)
[2024-10-16] MEDS ORDERED: HYDROmorphone HCL 2 MG/ML VL/or syr IV PRN (12:15)
[2024-10-16] MEDS ORDERED: ACETAMINOPHEN 325 MG TAB PO PRN (12:15)
[2024-10-16] MEDS ORDERED: HYDROcodone-ACET 5/325MG TAB PO PRN (12:15)
[2024-10-16] MEDS ORDERED: hydrALAZINE HCL 20 MG/ML VL IV PRN (12:15)
[2024-10-16] MEDS ORDERED: ONDANSETRON HCL 4 MG/2 ML VIAL IV PRN (12:15)
[2024-10-16] MEDS ORDERED: DOCUSATE SOD 100 MG CAP PO PRN (12:15)
--- NOTE | 2024-10-16 12:18 | DVHNC2 ---
Intubation Indication: Altered Mental Status, Airway Protection Pretreated with: Analgesia, Sedation Medicated with: Other (Rocuronium) Intubation Approach: Orotracheal Intubation size: cm (7.5) Notes A time out was performed. My hands were washed immediately prior to the procedure. I wore a surgical cap, mask with protective eyewear, gown and gloves throughout the procedure. The patient was placed on a monitoring specialist including continuous pulse oximetry. Rapid Sequence Intubation was conducted. The patient received 20 mg of etomidate for induction and 100 mg of rocuronium for adequate paralysis. Cricoid pressure was maintained from time induction agent was given to time of cuff balloon inflation. Using a direct laryngoscope and a size 7,5 endotracheal tube with stylet, the patient was intubated on the _ attempt. The stylet was removed and cuff balloon was inflated. Appropriate endotracheal tube position was confirmed by direct visualization of vocal cord passage, fogging of the tube, CO2 colormetric indicator and symmetric breath sounds. The tube was secured at _22 cm at the lips. Post intubation chest x-ray confirmed the position of the tube. Date of Service: Oct 16, 2024 Billing Provider: SORIN SANTOS MD Common Visit Codes: PROCEDURE ONLY TOMEKA TOMAS RESIDENT Oct 16, 2024 12:18
--- NOTE | 2024-10-16 12:21 | DVHNC2 ---
Central Line Indication: Hypotension, CVP monitoring, Volume resuscitation Room prepared for procedure: Yes Booth Manager performed hand hygien: Yes Maximal sterile barrier precau: Mask/Eye shield, Sterile gown, Cap, Sterlie gloves, Large sterlie drape Skin Preparation: Chlorhexidine gluconate, Providine iodine Skin preparation completely dr: Yes Insertion site: Right, Internal jugular Central line catheter type: Sup-[id number]-[id number] dialysis Number of lumens: 3 Central line exchanged over a: No Antiseptic ointment applied to: Yes Post Assessment: Chest X-Ray, No Pneumothorax Notes A time out was performed. My hands were washed immediately prior to the procedure. I wore a surgical cap, mask with protective eyewear, full gown and sterile gloves throughout the procedure. The patient was placed in Trendelenburg position. RIGHT chest region was prepped using chlorhexidine scrub and draped in sterile fashion using a full drape and sterile probe cover and sterile gel employed. The medial and lateral heads of the sternocleidomastoid muscle were identified as was the carotid pulse. The Internal Jugular vein was identified using the ultrasound. Anesthesia was achieved over the vein using 1% lidocaine. Using real-time out of plane guidance, the introducer needle was inserted into the Internal Jugular vein under direct ultrasound visualization. Venous blood was withdrawn. The syringe was removed and a guidewire was advanced into the introducer needle. The guidewire was visualized in the Internal Jugular Vein by ultrasound. A small incision was made at the skin surface with a scalpel and the introducer needle was exchanged for a dilator over the guidewire. After appropriate dilation was obtained, the dilator was exchanged over the wire for a _ central venous catheter. The wire was removed and the catheter was sutured in place at _ cm. A sterile sorbaview shield was placed over the catheter at the insertion site. The patient tolerated the procedure without any hemodynamic compromise. At time of procedure completion, all ports aspirated and flushed properly. Post-procedure chest x-ray is pending at this time. Estimated blood loss is less than 5 ml Date of Service: Oct 16, 2024 Billing Provider: SORIN SANTOS MD Common Visit Codes: PROCEDURE ONLY TOMEKA TOMAS RESIDENT Oct 16, 2024 12:21
--- NOTE | 2024-10-16 12:50 | DVH ---
EXAM: CT HEAD WITHOUT CONTRAST INDICATION: altered TECHNIQUE: CT of the head without intravenous contrast. Radiation Dose : 1. Head: CT Dose: CTDI volume is 52 mGy. Dose-length product is 1029 mGy*cm The dose indicators for CT are the volume Computed Tomography (CT) Dose Index (CTDIvol) and the Dose Length Product (DLP), and are measured in units of mGy and mGy-cm, respectively. These indicators are not patient dose, but values generated from the CT scanner acquisition factors. The report includes radiation exposure data for exposures received during this examination. COMPARISON: None FINDINGS: There is no evidence of acute intracranial hemorrhage, extra-axial collection, mass effect, midline s hift, herniation or hydrocephalus. The ventricles, sulci and cisterns are age appropriate. The shore-white differentiation is intact. Patchy periventricular and subcortical white matter hypoattenuation is nonspecific but may be related to small vessel ischemic disease. The visualized paranasal sinuses and mastoid air cells are clear. The surrounding soft tissues and osseous structures are unremarkable. IMPRESSION: No acute intracranial abnormality. Radiation optimization: All CT scans at this facility use at least one of these dose optimization gurpreet hniques: automated exposure control mA and/or kV adjustment per patient size (includes targeted exam s where dose is matched to clinical indication) or iterative reconstruction.
[2024-10-16 12:51] LABS: Hematocrit 44.6 % (36.0-46.0); Hemoglobin 14.7 g/dL (12.2-16.2); Mean Corpuscular Hemoglobin 32.9 pg (28.0-32.0); Mean Corpuscular Volume 99.9 fL (80.0-100.0); Nucleated Red Blood Cells % 0.0 %
[2024-10-16] MEDS: methylPREDNISolone SOD SUCC 125 MG/2 ML VL IV ONE (13:02)
[2024-10-16 13:06] LABS: INR 1.02 (0.9-1.15); Partial Thromboplastin Time 23.9 SEC (24.5-34.5); Prothrombin Time 10.8 sec (9.3-11.8)
[2024-10-16 13:09] LABS: Albumin 3.2 g/dL (3.2-4.8); Anion Gap 13 (5-15); BUN/Creatinine Ratio 39.5 (10.0-20.0); Bilirubin, Total 1.0 mg/dL (0.2-1.0); Carbon Dioxide 24 mmol/L (20-31); Total Protein 6.7 g/dL (5.7-8.2)
[2024-10-16 13:11] LABS: Alanine Aminotransferase 142 U/L (7-40); Alkaline Phosphatase 195 U/L (46-116); Blood Urea Nitrogen 45 mg/dL (9-23); Calcium 8.5 mg/dL (8.7-10.4); Chloride 111 mmol/L (98-107); Glucose 375 mg/dL (74-106); Potassium 3.1 mmol/L (3.5-5.1); Sodium 148 mmol/L (136-145)
[2024-10-16 13:13] LABS: Lactic Acid w/Reflex 4.4 mmol/L (0.4-2.0)
[2024-10-16] MEDS: CEFEPIME 1GM/50ML 50 ML IV SCH (14:51)
[2024-10-16] MEDS: SODIUM CHLOR 0.9% PF (SALINE LOCK) 10ML VIAL/SYR IV SCH (14:52)
[2024-10-16] MEDS: SODIUM CHLORIDE 0.9% 500 ML IV ONE ×2 (17:15→17:18)
[2024-10-16] MEDS ORDERED: DEXTROSE (50%) 50ML SYRG IV PRN (17:15)
[2024-10-16] MEDS: ACCU-CHEK COMFORT CURVE STRIP VI SCH (18:00)
[2024-10-16 18:22] LABS: Urine Amorphous Crystal FEW /hpf (None Seen); Urine Protein, UAD TRACE (Negative)
[2024-10-16] MEDS: InsuLIN REG 1unit/0.01ml Soln (100units/ml) SC SCH (19:54)
[2024-10-16] MEDS: NOREPINEPHRINE 8 MG/250ML KIT 250 ML IV SCH (20:01)
[2024-10-16] MEDS: POTASSIUM CHL 20MEQ/100ML 100 ML IV SCH (20:02)
[2024-10-17] VITALS (106 sets, daily range): BP systolic 84–136; BP diastolic 47–69; PULSE 66–94; RESP 12–33; TEMP 97.7–98.6; O2SAT 96–100
[2024-10-17 01:29] LABS: Anion Gap 9 (5-15); BUN/Creatinine Ratio 42.5 (10.0-20.0); Carbon Dioxide 24 mmol/L (20-31); Potassium 3.8 mmol/L (3.5-5.1); Total Protein 6.5 g/dL (5.7-8.2)
[2024-10-17 01:30] LABS: Bilirubin, Total 0.6 mg/dL (0.2-1.0)
[2024-10-17 01:38] LABS: Alanine Aminotransferase 115 U/L (7-40); Albumin 2.9 g/dL (3.2-4.8); Alkaline Phosphatase 167 U/L (46-116); Blood Urea Nitrogen 48 mg/dL (9-23); Calcium 8.0 mg/dL (8.7-10.4); Chloride 115 mmol/L (98-107); Glucose 430 mg/dL (74-106); Sodium 148 mmol/L (136-145)
[2024-10-17] MEDS ORDERED: DEXTROSE (50%) 50ML SYRG IV PRN (02:00)
[2024-10-17 03:47] LABS: Carbon Dioxide 24 mmol/L (20-31); Potassium 3.7 mmol/L (3.5-5.1)
[2024-10-17 03:48] LABS: Anion Gap 9 (5-15)
[2024-10-17 03:49] LABS: Hematocrit 39.6 % (36.0-46.0); Hemoglobin 13.2 g/dL (12.2-16.2); Mean Corpuscular Hemoglobin 33.3 pg (28.0-32.0); Mean Corpuscular Volume 100.0 fL (80.0-100.0); Nucleated Red Blood Cells % 0.1 %
[2024-10-17 03:51] LABS: Calcium 8.3 mg/dL (8.7-10.4); Chloride 115 mmol/L (98-107); Sodium 148 mmol/L (136-145)
[2024-10-17 03:54] LABS: BUN/Creatinine Ratio 44.0 (10.0-20.0); Magnesium 2.2 mg/dL (1.6-2.6)
[2024-10-17 03:55] LABS: Blood Urea Nitrogen 48 mg/dL (9-23); Glucose 382 mg/dL (74-106)
[2024-10-17] MEDS: ACCU-CHEK COMFORT CURVE STRIP VI SCH (03:57)
[2024-10-17] MEDS: InsuLIN REG 1unit/0.01ml Soln (100units/ml) SC SCH (04:00)
--- NOTE | 2024-10-17 05:38 | DVH ---
CHEST RADIOGRAPH Indication: ACUTE HYPOXIC RESPIRATORY FAILURE Technique: Single frontal view of the chest was obtained COMPARISON: XY CHEST PORTABLE on DOS: 10/16/24, CHEST PORTABLE on DOS: 06/18/20, XY CHEST PORTABLE on D OS: 10/16/24 FINDINGS: Lines and Tubes: Endotracheal tube, enteric catheter and right central venous catheter in satisfactor y position. Lungs: Left basilar subsegmental atelectasis. Pleura: No effusion. No pneumothorax. Cardiomediastinal contours: Unremarkable Bones: Unremarkable IMPRESSION: Endotracheal tube , enteric catheter and right central venous catheter in satisfactory position.
[2024-10-17] MEDS: INSULIN LANTUS (GLARGINE) 1 /0.01ml (100units/ml) SC SCH (06:44)
[2024-10-17 07:15] LABS: Base Excess -4.2 mmol/L (-2.0-3.0)
[2024-10-17] MEDS ORDERED: VANCOMYCIN PER PHARMACY 0 MG IV SCH (09:15)
[2024-10-17] MEDS: ENOXAPARIN SOD 40 MG/0.4 ML SYRINGE SC SCH (09:32)
[2024-10-17] MEDS ORDERED: MEROPENEM 1GM IVPB 50 ML IV ONE (09:45)
[2024-10-17] MEDS: MEROPENEM 1GM IVPB 50 ML IV ONE (10:45)
[2024-10-17] MEDS: PANTOPRAZOLE 40 MG/10 ML VIAL INJ IV SCH (10:46)
--- NOTE | 2024-10-17 11:05 | DVHPNRES ---
Progress Note Date Seen: Oct 17, 2024 Resident Creating Document: JENNIFER CARRILLO RESIDENT Medical Necessity Reason Pt with a Central, PICC or Fol: Yes The following are medically ne: Central Line, Morales Catheter Subjective Review of Systems Jose A Santos is a 84 years old female with a PMH of dementia, type 2 DM, HTN, HLD brought to the ED by her son with the chief complaints of worsening ALOC and respiratory distress. According to her son patient has been progressively deteriorating over the past year with a near complete in activity and over the last week she had markedly decreased appetite and oral intake and for past 2 days patient has been taking anything, her son noted pooling of food and secretions in her mouth and she has been struggling, more confused than usual so decided to bring her to ED. Per son her dementia has rapidly progressed, she developed memory impairment but she can recognize her son. He also reported she stopped talking 2 months ago, mostly somnolent, spent most of the day in sleeping but she can ambulate with the assistance. She also exhibited sadness and pain to the son. Over the past several days she developed difficulty chewing and swallowing with food and saliva pooling in her mouth, suspected she might have been aspirating so decided to get her to ED. EMS on scene reports the patient had a saturation of 80% on room air and was given nc of 4 L which brought it up to 90%. On arrival to ED patient was sedated, intubated and mechanically ventilated. Her son denies fever, cough, recent flu-like illness. PMH: As above PSH: Hip surgery in 2020 Family history: Noncontributory Social history: Lives with the . Denies smoking, alcohol and other drug abuse Allergies: No known allergies Home medications: Atenolol 25 mg, pravastatin 20 mg, metformin 500 mg Patient seen and examined at the bedside. Unable to obtain ROS due to patient's clinical status. Patient is currently on mechanical ventilation with the vent settings RR 16, VTE 400, FiO2 30%, peep 5. Initially patient is on cefepime, added vancomycin. Blood cultures positive for G+ cocci in chains and clusters. Respiratory cultures showed moderate growth of G- rods. Ordered blood cultures again. Objective vital signs Vital Sign Date Time Temp Pulse Resp B/P (MAP) Pulse Ox O2 Delivery O2 Flow Rate FiO2 10/17/24 08:51 79 16 99/57 (71) 99 30 10/17/24 07:30 98.3 98.3 10/17/24 06:00 Mechanical Ventilator+ 10/16/24 10:45 0 Total Intake and Output 10/16/24 10/16/24 10/17/24 15:00 23:00 07:00 Intake Total 342.693 ml 730.970 ml 221.051 ml Output Total 450 ml 450 ml Balance 342.693 ml 280.970 ml -228.949 ml medications Current Medications Medications Dose Ordered Sig/Bryon Route Start Time Stop Time Status Last Admin Dose Admin Propofol 100 ml @ 1.347 mls/ hr Q24H IV 10/16/24 11:30 10/17/24 04:40 4.041 MLS/HR Fentanyl Citrate 250 ml @ 2.5 mls/hr Q24H IV 10/16/24 11:30 10/16/24 12:00 2.5 MLS/HR Sodium Chloride 10 ml Q8HR IV 10/16/24 14:00 10/17/24 05:10 10 ML Docusate Sodium 100 mg BIDPRN PRN PO 10/16/24 12:15 Acetaminophen 650 mg Q6HP PRN PO 10/16/24 12:15 Enoxaparin Sodium 40 mg DAILY SC 10/17/24 10:00 10/17/24 09:32 40 MG Norepinephrine Bitartrate 250 ml @ 3.75 mls/hr Q24H IV 10/16/24 18:45 10/16/24 20:01 3.75 MLS/HR Diagnostic Test (Pha) 1 strip IQ4HR 10/17/24 04:00 10/17/24 08:24 1 STRIP Insulin Human Regular IQ4HR SC 10/17/24 04:00 10/17/24 09:32 4 UNITS Dextrose 50 ml UD PRN IV 10/17/24 02:00 Insulin Glargine 15 units BID@0700,2200 SC 10/17/24 07:00 10/17/24 06:44 15 UNITS Pantoprazole Sodium 40 mg DAILY IV 10/17/24 10:00 UNV Enteral Nutritional Formula 1,000 ml 30ML/HR GT 10/17/24 09:15 UNV Vancomycin HCl 0 ml @ 0 mls/hr UD IV 10/17/24 09:15 UNV Meropenem 50 ml @ 17 mls/hr Q12HR IV 10/17/24 10:00 UNV Examination Pt is lying on bed sedated, RASS -3 General Appearance: Sedated, on mechanical ventilation with RR 16, VTE 400, FiO2 30%, peep 5. HEENT: Atraumatic, Mucous membranes moist/pink Respiratory: Minimal decreased sound in left side, breathing through vent Cardiovascular: Regular rate, Normal S1, Normal S2, No murmurs Abdominal: Active bowel sounds, Soft, no distention, no tenderness Extremities: Trace edema Skin: No Significant rash, except past surgical scars Neuro: Deferred, pupils and gag reflex intact Nurse was there as rolloff driver during examination laboratory and microbiology Laboratory Tests 10/17/24 03:09 Test 10/17/24 03:09 Range/Units Serum Glucose 382 H 74-106 mg/dL Microbiology Date/Time Source Procedure Growth Status 10/16/24 17:40 Urine - Morales Port Urine Culture - Preliminary Resulted 10/16/24 12:17 Blood Blood Culture - Preliminary Resulted 10/16/24 10:20 Sputum Expectorated Sputum Gram Stain Pending Resulted 10/16/24 10:20 Sputum Expectorated Sputum Respiratory Culture - Preliminary Resulted Labs and/or images reviewed: Labs reviewed by me, Image(s) reviewed by me Problem List/Assessment/Plan Problem List/Assessment/Plan [employer]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 # Acute on chronic metabolic encephalopathy likely from sepsis # Dementia -sedated with propofol and fentanyl -head CT showed no acute changes except chronic vascular changes -delirium precautions CVS # Septic shock likely from PNA # hx HTN # HLD # NSTEMI likely type 2 from demand mediated from septic shock -currently on Levophed titrating as tolerated -monitor troponins, ordered new EKG - Ordered echocardiogram - Cardiac consult if needed -continuously monitor hemodynamics -hold antihypertensives for now -continue antibiotics RS # Acute hypoxic respiratory failure 2/2 below status post intubation 10/16/24 # Possible aspiration pneumonia # septic shock likely from pneumonia -ICU status -intubated and on mechanical ventilation RR 16, VTE 400, FiO2 30%, peep 5. -daily CXR and ABGs -pancultures -initial Blood cultures positive for G+ cocci in chains and clusters. Ordered blood cultures again. -Initial Respiratory cultures showed moderate growth of G- rods. - antibiotics cefepime and vancomycin - GI/Liver -Protonix for ulcer prophylaxis -Glucerna for tube foods # Mild transmainitis-monitor lab for now /Kidney/Metabolic # BRENDA likely due to VMN on CKD # hypertensive and diabetic CKD III -monitor lab -avoid nephrotoxic agents -IVF # hypernatremia mild -free water through GT -monitor lab # Hypokalemia - Repleting - Monitor lab Endo # uncontrolled type 2 DM with a severe hyperglycemia -HbA1c -aggressive sliding scale -insulin Lantus 15 units b.i.d. ID # Aspiration pneumonia # Gram-positive bacteremia -continue cefepime and vancomycin -initial blood cultures showed Gram-positive cocci -ordered repeat blood cultures MSK/Cut HemeOnc PUD PPX: Protonix VTE PPX: Lovenox Diet: Glucerna through GT Drips Diprivan Fentanyl Levophed Lines Intubation 10/17 Right IJ cvc 10/17 Goals of care discussed with the patient's both son's for 27 minutes: Full code status Care plan updated to the bedside for 1 son and on telephone for other son Critical care time spent excluding procedures for more than 113 minutes Case discussed with regarding Respironics, antibiotics, cultures , repeat troponins, echocardiogram and EKG and possible cardiology consult. Plan discussed with: Son, Other (rn) My Orders My Orders Orders - JENNIFER CARRILLO RESIDENT Procedure Category Date Status Time Pantoprazole PHA 10/17/24 In Process (Protonix) 10:00 Nutritional PHA 10/17/24 In Process Supplements (Glucerna 09:15 Vancomycin Per PHA 10/17/24 In Process Pharmacy 09:15 Blood Culture CRISTINE 10/17/24 Logged 09:09 Hemoglobin A1c LAB 10/17/24 In Process 09:09 Thyroid Stimulating LAB 10/17/24 Logged Hormone 09:09 Vitamin B12 LAB 10/17/24 Logged 09:09 Covid19 Antigen Nilda LAB 10/17/24 Logged 09:09 Rapid Influenza A&B LAB 10/17/24 Logged 09:09 B-Type Natriuretic LAB 10/17/24 In Process Peptide 09:09 Ammonia LAB 10/17/24 Logged 09:09 Bilat Lower Dvt US 10/17/24 Logged 09:09 Meropenem 1gm Ivpb PHA 10/17/24 In Process (Merrem 1gm/ Ns) 22:00 Vancomycin 1gm/250ml PHA 10/17/24 In Process Kit 11:00 Free Water PHA 10/17/24 Logged 14:00 Troponin-I Hs LAB 10/17/24 Logged 10:47 Sepsis reassessment post fluid Is the fluid challenge complet: Yes Date of Reassessment: Oct 16, 2024 Time of Reassessment: 1300 Blood Culture Time: 1200 Time Antibiotics Given: 1230 Systolic BP: 134 Diastolic BP: 62 Blood Pressure Mean: 86 Respiration: 16 Respiratory Effort: Non-Labored, Labored Respiratory Pattern: Regular Oxygen Saturation: 99 Pulse Rate: 133 Pulse Location: Radial Pulse Strength: Normal Pulse Assessment Method: Palpation Pulse Rhythm: Regular Capillary Refill: < 3 seconds Heart Sounds: S1 & S2 Breath sounds: Clear Skin Moisture: Dry Skin Tugor: WNL Skin Color: Mottled JENNIFER CARRILLO RESIDENT Oct 17, 2024 11:05
--- NOTE | 2024-10-17 11:42 | DVH ---
CLINICAL HISTORY: R/O DVT TECHNIQUE: Color and duplex doppler imagine of the bilateral lower extremity veins was performed. Ves gilbert compression and augmentation if possible was also performed. COMPARISON: BI LOWER DVT on DOS: 06/19/20 FINDINGS: Right lower Extremity: Right common femoral vein: Normal compressibility and flow. Right superficial femoral vein: Normal compressibility and flow. Right popliteal vein: Normal compressibility and flow. Proximal calf veins demonstrate flow. Left lower Extremity: Left common femoral vein: Normal compressibility and flow. Left superficial femoral vein: Normal compressibility and flow. Left popliteal vein: Normal compressibility and flow. Proximal calf veins demonstrate flow. IMPRESSION: NO SONOGRAPHIC EVIDENCE FOR DEEP VENOUS THROMBOSIS IN THE BILATERAL LOWER EXTREMITY VEINS.
[2024-10-17] MEDS: VANCOMYCIN 1GM/250ML KIT 250 ML IV ONE (13:24)
[2024-10-17] MEDS: CEFEPIME 1GM/50ML 50 ML IV SCH (13:24)
[2024-10-17] MEDS: FREE WATER GT SCH (14:00)
[2024-10-17] MEDS: Glucerna 1.2 Cal 1Liter BOTTLE GT SCH (14:20)
--- NOTE | 2024-10-17 17:11 | DVHTSRES ---
Transfer Summary Transfer Summary Resident Creating Document: JENNIFER CARRILLO RESIDENT Date of Admission Oct 16, 2024 at 12:08 Date of Transfer: Oct 17, 2024 Transfer Diagnosis ? Aspiration pneumonia Brief Hx & Hospital Course: Jose A Santos is an 84-year-old female with a history of dementia, type 2 diabetes mellitus, hypertension, and hyperlipidemia, who was brought to the emergency department by her son due to worsening altered level of consciousness and respiratory distress. Her son reported a progressive decline in her condition over the past year, with near-total inactivity, decreased oral intake over the past week, and complete cessation of eating and drinking for the past two days. She exhibited pooling of food and secretions in her mouth, increased confusion, and difficulty swallowing, raising concerns for aspiration. EMS noted an oxygen saturation of 80% on room air, which improved to 90% with 4L nasal cannula. Upon arrival, the patient was sedated, intubated, and placed on mechanical ventilation. Initial blood cultures revealed gram-positive cocci in chains and clusters, and respiratory cultures showed moderate growth of gram- negative rods. She was started on cefepime and vancomycin. Imaging showed no acute intracranial changes but chronic vascular findings consistent with her dementia. She was diagnosed with acute on chronic metabolic encephalopathy likel y secondary to sepsis, and septic shock likely from aspiration pneumonia. She is currently on mechanical ventilation with settings RR 16, VTE 400, FiO? 30%, and PEEP 5, and receiving sedation with propofol and fentanyl, along with vasopressor support via Levophed. Cardiac evaluation is ongoing for a possible type 2 NSTEMI consult cardiology if needed. Her labs revealed acute kidney injury on chronic kidney disease stage III, mild hypernatremia, and hypokalemia, all being managed with IV fluids, electrolyte replacement, and close monitoring. Her diabetes is uncontrolled with severe hyperglycemia, and she is on an aggressive insulin regimen. Nutritional support is provided via Glucerna through gastrostomy tube. She is receiving prophylaxis for peptic ulcer disease with Protonix and VTE prophylaxis with Lovenox. Primary Diagnosis Aspiration PNA Transfer to: [facility] Scheduled Atenolol (Atenolol), 1 TAB PO DAILYPRN, (Reported) Metformin Hydrochloride (Metformin Hydrochloride), 1 TAB PO BID, (Reported) Miscellaneous Medications Pravastatin Sodium (Pravachol Tablet), 1 TAB PO, (Reported) JENNIFER CARRILLO RESIDENT Oct 17, 2024 17:11
--- NOTE | 2024-10-17 17:44 | DVHHP2 ---
Admitting Diagnosis: ALOC History of Present Illness 84-year-old female who is Maltese in speaking, BIBA with prior medical history of dementia, high lipids, hypertension, diabetes: Surgical history of BTL and the chief complaint of general weakness. EMS report that the family member informed him that the patient has one episode of emesis two days ago and he is usually altered with dementia and is more this month. EMS on scene reports the patient had a saturation of 80% on room air and was given nasal [place] of 4 L which brought it up to 90%. Denies chills, fever, /D, SOB, CP. No other associated symptoms, modifiers, recent injuries or sick contacts present at this time. 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 Allergies: Coded Allergies: NO KNOWN ALLERGIES (Unverified , 11/20/12) Home Meds Reported Medications Atenolol (Atenolol) 25 Mg Tab, 1 TAB PO DAILYPRN 06/18/20 Pravastatin Sodium (PRAVACHOL TABLET) 20 Mg Tb, 1 TAB PO 06/18/20 Metformin Hydrochloride (Metformin Hydrochloride) 500 Mg Tab, 1 TAB PO BID 06/18/20 Current Medications Current Medications Medications (Trade) Dose Ordered Sig/Bryon Route PRN Reason Start Time Stop Time Status Last Admin Enoxaparin Sodium (Lovenox) 40 mg DAILY SC 10/17/24 10:00 10/17/24 09:32 Diagnostic Test (Pha) (Accu-Chek Comfort Curve T) 1 strip Q6HR 10/16/24 18:00 10/17/24 01:51 DC 10/16/24 23:44 Insulin Human Regular (InsuLIN R) Q6HR SC 10/16/24 18:00 10/17/24 01:51 DC 10/16/24 23:50 Norepinephrine Bitartrate 250 ml @ 3.75 mls/hr Q24H IV 10/16/24 18:45 10/16/24 20:01 Potassium Chloride 100 ml @ 50 mls/hr Q2H IV 10/16/24 18:45 10/16/24 22:44 DC 10/16/24 22:08 Diagnostic Test (Pha) (Accu-Chek Comfort Curve T) 1 strip IQ4HR 10/17/24 04:00 10/17/24 17:10 Insulin Human Regular (InsuLIN R) IQ4HR SC 10/17/24 04:00 10/17/24 09:32 Dextrose 50 ml UD PRN IV Blood Sugar LESS THAN 60 10/17/24 02:00 Insulin Glargine (Lantus) 15 units BID@0700,2200 SC 10/17/24 07:00 10/17/24 06:44 Pantoprazole Sodium (Protonix) 40 mg DAILY IV 10/17/24 10:00 10/17/24 10:46 Enteral Nutritional Formula (Glucerna 1.2 Luis Fernando) 1,000 ml 30ML/HR GT 10/17/24 09:15 10/17/24 14:20 Vancomycin HCl 0 ml @ 0 mls/hr UD IV 10/17/24 09:15 Meropenem 50 ml @ 17 mls/hr Q12HR IV 10/17/24 22:00 10/17/24 11:03 DC Purified Water 250 ml Q4HR GT 10/17/24 14:00 10/17/24 14:00 Cefepime HCl 50 ml @ 12.5 mls/hr Q12HR IV 10/17/24 11:00 10/17/24 13:24 Vancomycin HCl 100 ml @ 100 mls/hr DAILY@1300 IV 10/18/24 13:00 Vital Signs Vital Signs Date Time Temp Pulse Resp B/P (MAP) Pulse Ox O2 Delivery O2 Flow Rate FiO2 10/17/24 16:29 84 16 108/60 (76) 99 30 10/17/24 16:00 Mechanical Ventilator+ 10/17/24 16:00 98.1 98.1 10/16/24 10:45 0 Physical Exam Gen: 84 years old woman, lying in bed. Normal respiratory intubated sedated HEENT-atraumatic normocephalic Heart-regular rate and rhythm Lungs decreased breath sounds bilateral Abdomen soft nontender nondistended musculoskeletal-no edema cyanosis Neuro-AO intubated and sedated SEPSIS Sepsis Screen Date sepsis recognized/suspect: Oct 16, 2024 Time Sepsis recognized/suspect: 934 Recent Procedure: No On Antibiotic Therapy: No Respiratory Rate >20: No Heart Rate >90: Yes Temp<36 C (96.8 F) or >38.3 C: No SBP <90 or MAP <65 mmHG: No New Acute Mental Status Change: Yes Is the patient on CPAP, BIPAP,: No Physician Orders Chest Portable (10/16/24 09:37) Accucheck (10/16/24 09:37) Blood Culture (10/16/24 09:37) Notify Md If Map <65 Or Bp<90 (10/16/24 09:37) If Map<65 Start Vasopressor (10/16/24 09:37) Sepsis Reassesment After Fluid (10/16/24 10:37) Head Without Contrast (10/16/24 09:44) Electrocardigram (10/16/24 09:49) Abg W/ Co-Ox (10/16/24 11:00) Respiratory Culture W/ Gs (10/16/24 10:15) Ventilator Orders (10/16/24 10:15) Insert/Manage Urinary Catheter QSHIFT (10/16/24 11:07) Ngt/Ogt (10/16/24 ) Propofol (Diprivan) (10/16/24 11:30) Fentanyl Drip 2500mcg/250mlns (10/16/24 11:30) Rass Sedation Scale Q1HR (10/16/24 11:25) Admit (10/16/24 12:08) Code Status (10/16/24 12:08) Vital Signs .PER UNIT PROTOCOL (10/16/24 12:08) Review Orders With Adm. (10/16/24 12:08) Encourage Activity As Tolerate (10/16/24 12:08) Npo (Nothing By Mouth) Diet (10/16/24 Lunch) Sodium Chloride Lock (Saline Lock Ns) (10/16/24 14:00) Docusate Sodium Capsule (Colace Capsule) (10/16/24 12:15) Acetaminophen Tablet (Tylenol Tablet) (10/16/24 12:15) Notify Md Of Changes From Base (10/16/24 12:08) Advance Directive (10/16/24 12:08) Patient Condition (10/16/24 12:08) Allergies (10/16/24 12:08) Enoxaparin Sodium (Lovenox) (10/17/24 10:00) Mrsa Screen (10/16/24 13:47) Norepinephrine 8 Mg/250ml Kit (Levophed) (10/16/24 18:45) *Consult / (10/16/24 18:45) Abg W/ Co-Ox (10/17/24 04:00) Chest Portable (10/17/24 04:00) Urine Bacterial Culture (10/16/24 22:36) Glucose Blood (Accu-Chek Comfort Curve T (10/17/24 04:00) Insulin R (Human) (Insulin R) (10/17/24 04:00) Dextrose 50% Syringe (10/17/24 02:00) Insulin Lantus (Glargine) (Lantus) (10/17/24 07:00) Pantoprazole (Protonix) (10/17/24 10:00) Nutritional Supplements (Glucerna 1.2 Ca (10/17/24 09:15) Vancomycin Per Pharmacy (10/17/24 09:15) Blood Culture (10/17/24 09:09) Covid19 Antigen Nilda (10/17/24 09:09) Rapid Influenza A&B (10/17/24 09:09) Bilat Lower Dvt (10/17/24 09:09) Free Water (10/17/24 14:00) Cefepime 1gm/ 50ml (Maxipime 1gm/50ml) (10/17/24 11:00) Troponin-I Hs (10/17/24 17:30) Creatinine (10/18/24 04:00) Vancomycin,Trough (10/20/24 12:00) Vancomycin Per Pharmacy Protoc (10/20/24 13:00) Vancomycin 750mg Kit (Vancomycin Hcl) (10/18/24 13:00) Echo 2d Mode Cardiac Dop (10/17/24 17:05) Electrocardigram (10/17/24 17:05) Complete Blood Count (10/18/24 04:00) Comprehensive Metabolic Panel (10/18/24 04:00) Magnesium (10/18/24 04:00) Abg W/ Co-Ox (10/18/24 04:00) Chest Portable (10/18/24 04:00) Vital Signs Date Time Temp Pulse Resp B/P (MAP) Pulse Ox O2 Delivery O2 Flow Rate FiO2 10/17/24 16:29 84 16 108/60 (76) 99 30 10/17/24 16:00 30 10/17/24 16:00 111/64 10/17/24 16:00 72 10/17/24 16:00 16 99 Mechanical Ventilator+ 30 30 10/17/24 16:00 98.1 74 16 110/61 (77) 99 98.1 10/17/24 15:45 76 16 113/63 (80) 99 10/17/24 15:30 74 16 107/59 (75) 99 10/17/24 15:15 71 16 112/59 (76) 99 10/17/24 15:00 98.4 74 16 111/57 (75) 99 98.4 10/17/24 14:46 75 16 101/63 (76) 100 10/17/24 14:30 79 16 99/55 (70) 100 10/17/24 14:26 101/60 10/17/24 14:15 79 16 101/60 (74) 99 10/17/24 14:15 81 16 101/60 (74) 99 30 10/17/24 14:00 16 100 Mechanical Ventilator+ 30 30 10/17/24 14:00 30 10/17/24 14:00 98.1 80 16 104/60 (75) 100 98.1 10/17/24 14:00 73 10/17/24 13:45 80 16 100/55 (70) 100 10/17/24 13:30 79 16 100/58 (72) 99 10/17/24 13:15 79 16 104/58 (73) 99 10/17/24 13:00 98.2 79 16 95/53 (67) 99 98.2 10/17/24 12:58 81 16 95/53 (67) 99 30 10/17/24 12:45 80 16 103/60 (74) 99 10/17/24 12:30 80 16 101/59 (73) 99 10/17/24 12:15 81 16 98/59 (72) 99 10/17/24 12:00 78 10/17/24 12:00 98.3 79 16 100/57 (71) 98 98.3 10/17/24 12:00 30 10/17/24 12:00 16 100 Mechanical Ventilator+ 30 30 10/17/24 11:45 81 16 104/60 (75) 100 10/17/24 11:30 78 16 100/56 (71) 99 10/17/24 11:15 79 16 92/61 (71) 99 10/17/24 11:00 98.5 80 16 98/57 (71) 99 98.5 10/17/24 10:46 80 16 96/56 (69) 99 30 10/17/24 10:45 79 16 96/56 (69) 99 10/17/24 10:30 79 16 96/57 (70) 99 10/17/24 10:15 79 16 100/58 (72) 99 10/17/24 10:00 75 10/17/24 10:00 30 10/17/24 10:00 98.6 80 16 99/57 (71) 100 98.6 10/17/24 10:00 16 100 Mechanical Ventilator+ 30 30 10/17/24 09:45 80 16 93/52 (66) 99 10/17/24 09:30 77 16 97/57 (70) 99 10/17/24 09:15 78 16 98/55 (69) 99 10/17/24 09:00 98.5 78 16 99/56 (70) 99 98.5 10/17/24 08:51 79 16 99/57 (71) 99 30 10/17/24 08:45 78 16 99/57 (71) 99 10/17/24 08:30 75 16 102/53 (69) 99 10/17/24 08:15 79 16 109/62 (78) 100 10/17/24 08:00 76 16 99 Mechanical Ventilator+ 99 99 10/17/24 08:00 78 10/17/24 08:00 30 10/17/24 08:00 76 16 99 Mechanical Ventilator+ 99 99 10/17/24 08:00 98.2 77 17 108/58 (75) 99 98.2 10/17/24 08:00 16 99 Mechanical Ventilator+ 30 30 10/17/24 07:45 78 16 112/59 (76) 100 10/17/24 07:30 98.3 78 16 107/54 (71) 99 98.3 10/17/24 07:15 98.3 76 16 100/55 (70) 99 98.3 10/17/24 07:00 98.3 77 16 108/54 (72) 99 98.3 10/17/24 06:45 98.3 75 16 98/53 (68) 100 98.3 10/17/24 06:38 76 16 108/55 (72) 99 30 10/17/24 06:30 98.3 78 16 108/55 (72) 100 98.3 10/17/24 06:15 98.3 75 16 110/54 (72) 99 98.3 10/17/24 06:00 73 10/17/24 06:00 30 10/17/24 06:00 16 99 Mechanical Ventilator+ 30 30 10/17/24 06:00 98.3 75 16 95/51 (66) 99 98.3 10/17/24 05:45 98.3 75 16 95/47 (63) 99 98.3 10/17/24 05:45 95/47 10/17/24 05:30 98.3 74 16 95/50 (65) 99 98.3 10/17/24 05:15 98.3 73 16 95/52 (66) 100 98.3 10/17/24 05:00 98.3 73 16 99/51 (67) 99 98.3 10/17/24 04:45 98.3 73 16 97/52 (67) 100 98.3 10/17/24 04:40 92/49 10/17/24 04:30 98.3 73 12 92/49 (63) 99 98.3 10/17/24 04:15 98.1 73 16 91/51 (64) 99 98.1 10/17/24 04:15 73 16 91/51 (64) 100 30 10/17/24 04:00 98.1 73 16 93/49 (64) 99 98.1 10/17/24 04:00 30 10/17/24 04:00 74 10/17/24 04:00 16 99 Mechanical Ventilator+ 30 30 10/17/24 03:45 98.1 73 16 90/48 (62) 99 98.1 10/17/24 03:30 98.1 73 16 94/50 (65) 99 98.1 10/17/24 03:15 98.1 75 16 94/51 (65) 99 98.1 10/17/24 03:00 98.1 74 16 95/50 (65) 99 98.1 10/17/24 02:45 98.1 70 16 120/57 (78) 100 98.1 10/17/24 02:38 69 16 102/53 (69) 100 30 10/17/24 02:30 98.1 69 16 102/53 (69) 100 98.1 10/17/24 02:15 98.1 71 16 104/56 (72) 100 98.1 10/17/24 02:00 98.1 71 16 106/55 (72) 100 98.1 10/17/24 02:00 30 10/17/24 02:00 74 10/17/24 02:00 16 99 Mechanical Ventilator+ 30 30 10/17/24 01:45 98.1 73 16 107/56 (73) 100 98.1 10/17/24 01:30 98.1 79 15 104/56 (72) 100 98.1 10/17/24 01:15 98.1 72 16 110/57 (74) 100 98.1 10/17/24 01:00 98.1 72 16 93/50 (64) 100 98.1 10/17/24 00:45 98.1 72 16 103/52 (69) 99 98.1 10/17/24 00:30 98.1 74 16 104/56 (72) 100 98.1 10/17/24 00:17 74 16 101/55 (70) 100 35 10/17/24 00:15 98.1 75 16 101/55 (70) 100 98.1 10/17/24 00:00 16 99 Mechanical Ventilator+ 35 35 10/17/24 00:00 35 10/17/24 00:00 85 10/17/24 00:00 98.1 78 16 104/54 (71) 99 98.1 10/16/24 23:45 98.1 78 16 101/55 (70) 99 98.1 10/16/24 23:30 98.1 84 14 121/65 (83) 100 98.1 10/16/24 23:15 98.1 83 16 87/49 (62) 100 98.1 10/16/24 23:00 98.1 88 16 87/49 (62) 99 98.1 10/16/24 22:45 98.1 90 16 93/53 (66) 99 98.1 10/16/24 22:30 89/51 8 22:30 98.1 97 16 89/51 (64) 99 98.1 10/16/24 22:15 98.1 96 16 110/60 (77) 100 98.1 10/16/24 22:10 99 16 106/65 (79) 99 35 10/16/24 22:00 16 99 Mechanical Ventilator+ 35 35 10/16/24 22:00 98.1 100 16 106/65 (79) 99 98.1 10/16/24 22:00 87 10/16/24 22:00 35 10/16/24 21:45 98.1 93 16 98/53 (68) 99 98.1 10/16/24 21:30 98.1 92 16 102/50 (67) 99 98.1 10/16/24 21:15 98.1 91 16 105/49 (67) 100 98.1 10/16/24 21:00 98.1 88 16 103/49 (67) 100 98.1 10/16/24 20:45 98.1 92 16 105/49 (67) 100 98.1 10/16/24 20:30 98.2 92 16 108/52 (70) 99 98.2 10/16/24 20:15 98.2 99 16 108/50 (69) 99 98.2 10/16/24 20:06 101 16 89/51 (64) 99 35 10/16/24 20:01 89/51 10/16/24 20:00 98.2 99 16 89/51 (64) 99 98.2 10/16/24 20:00 104 10/16/24 20:00 35 10/16/24 20:00 16 100 Mechanical Ventilator+ 35 35 10/16/24 19:45 98.2 102 16 88/49 (62) 99 98.2 10/16/24 19:30 98.2 104 16 94/50 (65) 99 98.2 10/16/24 19:15 98.2 104 16 97/50 (66) 100 98.2 10/16/24 19:00 98.2 105 14 105/49 (67) 98 98.2 8/21/25 18:45 106 16 90/53 (65) 98 10/16/24 18:30 108 16 105/58 (74) 99 10/16/24 18:18 107 17 99/49 (66) 99 40 10/16/24 18:15 108 15 99/49 (66) 99 10/16/24 18:00 107 15 98/50 (66) 98 10/16/24 18:00 103 10/16/24 18:00 35 10/16/24 18:00 16 99 Mechanical Ventilator+ 40 40 10/16/24 17:45 107 16 99/50 (66) 98 10/16/24 17:30 107 16 92/42 (59) 98 10/16/24 17:15 107 16 96/47 (63) 99 10/16/24 17:00 105 16 105/54 (71) 98 10/16/24 16:45 106 15 119/38 (65) 97 10/16/24 16:30 107 15 124/43 (70) 97 10/16/24 16:15 106 13 114/53 (73) 97 10/16/24 16:06 136 20 110/48 (68) 95 40 10/16/24 16:00 35 10/16/24 16:00 98.4 110 16 110/48 (68) 96 98.4 10/16/24 16:00 16 98 Mechanical Ventilator+ 35 35 10/16/24 16:00 121 10/16/24 15:45 115 12 101/49 (66) 94 10/16/24 15:30 121 16 100/51 (67) 95 10/16/24 15:15 122 20 104/54 (71) 93 10/16/24 15:00 125 15 112/48 (69) 92 10/16/24 15:00 98.9 122 19 104/54 (71) 93 98.9 10/16/24 14:45 127 15 93 10/16/24 14:30 128 15 90 10/16/24 14:15 126 18 100 10/16/24 14:00 129 98 10/16/24 13:46 135 16 104/65 (78) 95 40 10/16/24 13:15 95/54 10/16/24 13:15 95/54 10/16/24 13:00 134/62 10/16/24 13:00 134/62 10/16/24 12:45 138 18 134/62 (86) 99 10/16/24 12:30 140 18 144/63 (90) 99 10/16/24 12:15 136 18 160/62 (94) 99 10/16/24 12:15 147/63 10/16/24 12:13 132 16 136/78 (97) 100 40 10/16/24 12:00 162/66 10/16/24 12:00 163/99 10/16/24 12:00 162/66 10/16/24 12:00 135 18 162/66 (98) 99 10/16/24 11:45 135 18 152/63 (92) 99 10/16/24 11:43 131 10/16/24 11:30 132 18 159/63 (95) 99 10/16/24 11:15 137 18 144/86 (105) 99 10/16/24 11:00 136 18 145/84 (104) 99 10/16/24 10:45 133 18 99 Mechanical Ventilator+ 0 100 100 10/16/24 10:45 131 18 151/84 (106) 99 10/16/24 10:40 121 16 100 100 10/16/24 10:30 123 18 129/69 (89) 99 10/16/24 10:16 121 16 100 100 10/16/24 10:15 122 18 152/77 (102) 99 10/16/24 10:15 98.9 116 15 130/83 97 98.9 10/16/24 10:00 97.1 120 18 144/79 (100) 99 97.1 10/16/24 09:58 151/84 10/16/24 09:56 119 10/16/24 09:32 119 Laboratory Tests Test 10/16/24 12:17 10/16/24 15:29 10/17/24 03:09 Lactic Acid Level 4.4 mmol/L (0.4-2.0) *H 5.6 mmol/L (0.4-2.0) *H White Blood Count 15.9 10^3/uL (4.4-10.8) H 19.7 10^3/uL (4.4-10.8) H Medications Medications Dose Ordered Sig/Bryon Route Start Time Stop Time Status Last Admin Dose Admin Cefepime HCl 50 ml @ 12.5 mls/hr Q12HR IV 10/17/24 11:00 10/17/24 13:24 Enoxaparin Sodium 40 mg DAILY SC 10/17/24 10:00 10/17/24 09:32 Enteral Nutritional Formula 1,000 ml 30ML/HR GT 10/17/24 09:15 10/17/24 14:20 Insulin Glargine 15 units BID@0700,2200 SC 10/17/24 07:00 10/17/24 06:44 Meropenem 50 ml @ 50 mls/hr ONCE ONCE IV 10/17/24 09:45 10/17/24 10:44 DC 10/17/24 10:45 Pantoprazole Sodium 40 mg DAILY IV 10/17/24 10:00 10/17/24 10:46 Purified Water 250 ml Q4HR GT 10/17/24 14:00 10/17/24 14:00 Vancomycin HCl 250 ml @ 250 mls/hr ONCE ONCE IV 10/17/24 11:00 10/17/24 11:59 DC 10/17/24 13:24 Results Labs Test 10/17/24 16:44 10/17/24 12:16 10/17/24 07:00 10/17/24 03:09 Range/Units POC Glucose 86 70-106 mg/dl Ammonia 27 11-32 umol/L Troponin I High Sensitivity 60 *H </=34 ng/L Vitamin B12 Level 1483 H 211-911 pg/mL Thyroid Stimulating Hormone (TSH) 1.30 0.55-4.78 uIU/mL Blood Gas Specimen Type Arterial Blood Gas Sample Site Left radial Blood Gas Patient Temperature 37.0 Arterial Blood Date Drawn [id number] Arterial Blood pH 7.383 7.350-7.450 Arterial Blood Partial Pressure CO2 34.4 32.0-45.0 mmHg Arterial Blood Partial Pressure O2 103.0 83.0-108.0 mmHg Arterial Blood HCO3 20.0 L 21.0-28.0 mmol/L Arterial Blood Oxygen Saturation 97.6 94.0-98.0 % Arterial Blood Base Excess -4.2 L -2.0-3.0 mmol/L Arterial Blood Oxyhemoglobin 96.6 94.0-98.0 % Arterial Blood Carboxyhemoglobin 0.7 0.5-1.5 % Arterial Blood Methemoglobin 0.3 0.0-1.5 % Margarito Test Modified Blood Gas Total Hemoglobin 13.80 12.0-16.0 g/dL Blood Gas Set Respiration Rate 16.0 Blood Gas Modality Vent - ac FiO2 % 30.0 Blood Gas Tidal Volume 400.0 Blood Gas PEEP or CPAP 5.0 White Blood Count 19.7 H 4.4-10.8 10^3/uL Red Blood Count 3.96 L 4.0-5.20 10^6/uL Hemoglobin 13.2 12.2-16.2 g/dL Hematocrit 39.6 # 36.0-46.0 % Mean Corpuscular Volume 100.0 80.0-100.0 fL Mean Corpuscular Hemoglobin 33.3 H 28.0-32.0 pg Mean Corpuscular Hemoglobin Concent 33.3 32.0-36.0 g/dL Red Cell Distribution Width 14.6 H 11.8-14.3 % Platelet Count 202 140-450 10^3/uL Mean Platelet Volume 9.0 6.9-10.8 fL Neutrophils (%) (Auto) 92.5 H 37.0-80.0 % Lymphocytes (%) (Auto) 4.2 L 10.0-50.0 % Monocytes (%) (Auto) 3.2 0.0-12.0 % Eosinophils (%) (Auto) 0.0 0.0-7.0 % Basophils (%) (Auto) 0.1 0.0-2.0 % Neutrophils # (Auto) 18.2 H 1.6-8.6 10 ^3/uL Lymphocytes # (Auto) 0.8 0.4-5.4 10 ^3/uL Monocytes # (Auto) 0.6 0-1.3 10 ^3/uL Eosinophils # (Auto) 0 0-0.8 10 ^3/uL Basophils # (Auto) 0 0-0.2 10 ^3/uL Nucleated Red Blood Cells 0.1 % Sodium Level 148 H 136-145 mmol/L Potassium Level 3.7 3.5-5.1 mmol/L Chloride Level 115 H 98-107 mmol/L Carbon Dioxide Level 24 20-31 mmol/L Anion Gap 9 5-15 Blood Urea Nitrogen 48 H 9-23 mg/dL Creatinine 1.09 H 0.550-1.02 mg/dL Glomerular Filtration Rate Calc 50 >90 mL/min BUN/Creatinine Ratio 44.0 H 10.0-20.0 Serum Glucose 382 H 74-106 mg/dL Hemoglobin A1c 8.4 H <5.7 % A1C Calcium Level 8.3 L 8.7-10.4 mg/dL Magnesium Level 2.2 1.6-2.6 mg/dL B-Type Natriuretic Peptide 64.44 0-100 pg/mL Test 10/17/24 01:01 10/16/24 17:40 10/16/24 15:29 10/16/24 12:17 Range/Units Total Bilirubin 0.6 0.2-1.0 mg/dL Aspartate Amino Transferase (AST) 79 H 13-40 U/L Alanine Aminotransferase (ALT) 115 H 7-40 U/L Alkaline Phosphatase 167 H 46-116 U/L Total Protein 6.5 5.7-8.2 g/dL Albumin 2.9 L 3.2-4.8 g/dL Urine Color Yellow Yellow Urine Clarity Turbid H Clear Urine pH 5.0 5.0-9.0 Urine Specific [place] 1.019 1.001-1.035 Urine Protein Trace H Negative Urine Ketones Negative Negative Urine Blood 2+ H Negative /uL Urine Nitrite Negative Negative Urine Bilirubin Negative Negative Urine Urobilinogen 2 H Negative mg/dL Urine Leukocyte Esterase Negative Negative /uL Urine RBC <1 0 - 4 /hpf Urine Microscopic WBC 3 0-5 /HPF Urine Squamous Epithelial Cells Few <5 /hpf Urine Amorphous Crystals Few None Seen /hpf Urine Bacteria Few H None Seen /hpf Urine Hyaline Casts Few 0 - 2 /lpf Urine Mucus Few None Seen Urine Glucose 4+ H Normal mg/dL Lactic Acid Level 5.6 *H 0.4-2.0 mmol/L Prothrombin Time 10.8 9.3-11.8 sec Prothrombin Time INR 1.02 0.9-1.15 Activated Partial Thromboplast Time 23.9 L 24.5-34.5 SEC Beta-Hydroxybutyric Acid 0.368 < 0.4 mmol/L Microbiology Date/Time Source Procedure Growth Status 10/16/24 17:40 Urine - [place] Urine Culture - Preliminary Resulted 10/16/24 12:17 Blood Blood Culture - Preliminary Resulted 10/16/24 10:20 Sputum Expectorated Sputum Gram Stain - Final Resulted 10/16/24 10:20 Sputum Expectorated Sputum Respiratory Culture - Preliminary Resulted Primary Diagnosis Altered mental status Hyperglycemia rule out DKA Dementia Hyperlipidemia Hypertension Diabetes Plan Leukocytosis, lactic acid elevated, elevated LFTs Intubated and sedated vanc/Cefepime for broad-spectrum antibiotics IV fluids Trend lactic acid until normalize Check troponin rule out cardiac etiology pulm consult full code lovenox for dvt ppx ppi Plan discussed with: Patient Problems List: (1) Sepsis, unspecified organism Status: Acute (2) UTI (urinary tract infection) Status: Acute (3) Metabolic encephalopathy Status: Acute Date of Service: Oct 17, 2024 Billing Provider: TG GO MD Common Visit Codes: [id number] CARE 30-74 MIN TG GO MD Oct 17, 2024 17:44
[2024-10-17] MEDS ORDERED: MEROPENEM 1GM IVPB 50 ML IV SCH (22:00)
[2024-10-18] VITALS (108 sets, daily range): BP systolic 86–143; BP diastolic 49–72; PULSE 64–91; RESP 11–31; TEMP 97.6–98.2; O2SAT 97–100
[2024-10-18 03:39] LABS: Hematocrit 37.6 % (36.0-46.0); Hemoglobin 12.7 g/dL (12.2-16.2); Mean Corpuscular Hemoglobin 33.0 pg (28.0-32.0); Mean Corpuscular Volume 98.2 fL (80.0-100.0); Nucleated Red Blood Cells % 0.2 %
[2024-10-18 03:58] LABS: Anion Gap 10 (5-15); BUN/Creatinine Ratio 58.7 (10.0-20.0); Carbon Dioxide 24 mmol/L (20-31); Magnesium 2.2 mg/dL (1.6-2.6); Total Protein 6.2 g/dL (5.7-8.2)
[2024-10-18 03:59] LABS: Alanine Aminotransferase 85 U/L (7-40); Albumin 2.7 g/dL (3.2-4.8); Alkaline Phosphatase 141 U/L (46-116); Bilirubin, Total 0.5 mg/dL (0.2-1.0); Blood Urea Nitrogen 44 mg/dL (9-23); Calcium 8.1 mg/dL (8.7-10.4); Chloride 112 mmol/L (98-107); Glucose 174 mg/dL (74-106); Potassium 3.4 mmol/L (3.5-5.1); Sodium 146 mmol/L (136-145)
[2024-10-18] MEDS: POTASSIUM CHL 20MEQ/100ML 100 ML IV ONE (05:26)
--- NOTE | 2024-10-18 05:43 | DVH ---
CHEST RADIOGRAPH Indication: fu Technique: 1 view Comparison: XY CHEST PORTABLE on DOS: 10/17/24, XY CHEST PORTABLE on DOS: 10/16/24, CHEST PORTABLE on D OS: 06/18/20 FINDINGS: Lines and Tubes: Unchanged endotracheal tube, enteric tube, and right IJ catheter. Lungs: Unchanged. Pleura: Unchanged. Cardiomediastinal contours: Unchanged. Other: Unchanged. IMPRESSION: 1. No significant change from the previous study. Minimal basilar atelectasis. Stable support device s.
[2024-10-18 07:28] LABS: Base Excess -0.8 mmol/L (-2.0-3.0)
[2024-10-18] MEDS: VANCOMYCIN 750MG KIT 100 ML IV SCH (12:35)
--- NOTE | 2024-10-18 14:53 | DVHPN2 ---
Subjective Intubated and sedated Changes from previous H/P or p: Changes Objective Vitals Vital Signs Date Time Temp Pulse Resp B/P (MAP) Pulse Ox O2 Delivery O2 Flow Rate FiO2 10/18/24 14:05 143/68 10/18/24 14:00 16 98 Mechanical Ventilator+ 30 30 10/18/24 14:00 69 10/18/24 08:00 98.2 98.2 10/16/24 10:45 0 Intake/Output Intake and Output 10/18/24 07:00 Intake Total 2288.981 ml Output Total 575 ml Balance 1713.981 ml Intake Oral 1250 ml IV Total 730.981 ml Tube Feeding 308 ml Output Urine Total 575 ml # Bowel Movements 1 General Appearance: Other (Intubated and sedated) Lungs: Other (Bilateral rhonchi) Cardiovascular: Regular rate, Normal S1 Abdomen: Normal bowel sounds, Soft Extremities: No edema Medications Current Medications Medications Dose Ordered Sig/Bryon Route Start Time Stop Time Status Last Admin Dose Admin Propofol 100 ml @ 1.347 mls/ hr Q24H IV 10/16/24 11:30 10/17/24 14:26 2.694 MLS/HR Fentanyl Citrate 250 ml @ 2.5 mls/hr Q24H IV 10/16/24 11:30 10/17/24 23:57 5 MLS/HR Sodium Chloride 10 ml Q8HR IV 10/16/24 14:00 10/18/24 09:08 10 ML Docusate Sodium 100 mg BIDPRN PRN PO 10/16/24 12:15 Acetaminophen 650 mg Q6HP PRN PO 10/16/24 12:15 Enoxaparin Sodium 40 mg DAILY SC 10/17/24 10:00 10/18/24 09:09 40 MG Norepinephrine Bitartrate 250 ml @ 3.75 mls/hr Q24H IV 10/16/24 18:45 10/17/24 18:45 7.5 MLS/HR Diagnostic Test (Pha) 1 strip IQ4HR 10/17/24 04:00 10/18/24 12:00 1 STRIP Insulin Human Regular IQ4HR SC 10/17/24 04:00 10/18/24 08:00 2 UNITS Dextrose 50 ml UD PRN IV 10/17/24 02:00 Insulin Glargine 15 units BID@0700,2200 SC 10/17/24 07:00 10/18/24 06:39 15 UNITS Pantoprazole Sodium 40 mg DAILY IV 10/17/24 10:00 10/18/24 09:08 40 MG Enteral Nutritional Formula 1,000 ml 30ML/HR GT 10/17/24 09:15 10/17/24 14:20 1,000 ML Vancomycin HCl 0 ml @ 0 mls/hr UD IV 10/17/24 09:15 Purified Water 250 ml Q4HR GT 10/17/24 14:00 10/18/24 14:13 250 ML Cefepime HCl 50 ml @ 12.5 mls/hr Q12HR IV 10/17/24 11:00 10/18/24 09:08 12.5 MLS/HR Vancomycin HCl 100 ml @ 100 mls/hr DAILY@1300 IV 10/18/24 13:00 10/18/24 12:35 100 MLS/HR Laboratory Results Laboratory Tests 10/18/24 03:20 Chemistry Test 10/18/24 03:20 Albumin 2.7 g/dL (3.2-4.8) L Calcium Level 8.1 mg/dL (8.7-10.4) L Magnesium Level 2.2 mg/dL (1.6-2.6) Total Protein 6.2 g/dL (5.7-8.2) LFT Test 10/18/24 03:20 Alanine Aminotransferase (ALT) 85 U/L (7-40) H Alkaline Phosphatase 141 U/L (46-116) H Aspartate Amino Transferase (AST) 57 U/L (13-40) H Total Bilirubin 0.5 mg/dL (0.2-1.0) Urinalysis Test 10/16/24 17:40 Urine Color Yellow (Yellow) Urine Clarity Turbid (Clear) H Urine pH 5.0 (5.0-9.0) Urine Specific [place] 1.019 (1.001-1.035) Urine Protein Trace (Negative) H Urine Ketones Negative (Negative) Urine Blood 2+ /uL (Negative) H Urine Nitrite Negative (Negative) Urine Bilirubin Negative (Negative) Urine Urobilinogen 2 mg/dL (Negative) H Urine Leukocyte Esterase Negative /uL (Negative) Urine RBC <1 /hpf (0 - 4) Urine Microscopic WBC 3 /HPF (0-5) Urine Squamous Epithelial Cells Few /hpf (<5) Urine Amorphous Crystals Few /hpf (None Seen) Urine Bacteria Few /hpf (None Seen) H Urine Hyaline Casts Few /lpf (0 - 2) Urine Mucus Few (None Seen) Urine Glucose 4+ mg/dL (Normal) H Blood Gas Results Test 10/18/24 07:23 Arterial Blood pH 7.491 (7.350-7.450) FiO2 % 30.0 Microbiology Microbiology Date/Time Source Procedure Growth Status 10/17/24 12:05 Blood Blood Culture - Preliminary NO GROWTH AFTER 24 HOURS OF INCUBATION. Resulted 10/16/24 17:40 Urine - [place] Urine Culture - Preliminary Resulted 10/16/24 13:47 Nose MRSA Screen - Final Complete 10/16/24 10:20 Sputum Expectorated Sputum Gram Stain - Final Resulted 10/16/24 10:20 Sputum Expectorated Sputum Respiratory Culture - Preliminary Resulted Assessment/Plan Assessment/Plan Acute hypoxic respiratory failure Status post intubation Sepsis due to UTI Bacteremia Urinary tract infection Dementia Type 2 diabetes Hypertension Mixed hyperlipidemia Hypokalemia Hypernatremia Plan Mechanical ventilation Sedation with fentanyl and propofol as needed IV antibiotics with cefepime and vancomycin Free water via the NG tube Replace potassium as needed Urine culture preliminary is more than 100,000 colonies of Gram-negative rods Blood culture shows Gram-positive cocci in clusters and chains x2 bottles Discussed with the son at the bedside Plan discussed with: Son Date of Service: Oct 18, 2024 Billing Provider: JAMES GIRARD MD Common Visit Codes: [id number] CARE 30-74 MIN JAMES GIRARD MD Oct 18, 2024 14:53
--- NOTE | 2024-10-18 16:39 | DVHSR ---
APPROVED REPORT EXAM: Two-dimensional and M-mode echocardiogram with Doppler and color Doppler. Blood Pressure: 98/53 mmHg INDICATION ?Wall abnormalities RISK FACTORS Height: 5'4", Weight: 157 DIMENSIONS LVDd3.4 (3.8-5.7cm)LA (2D)2.9 (1.9-4.0cm)Aortic Root3.2 (2.0-3.7cm) LVDs2.5 (2.5-4.0cm)LA (MM) (1.9-4.0cm)Aortic Cusp Exc1.1 (1.5-2.0cm) EF (%) 55.0 (55-70%)Rt. Atrium3.7 (1.9-4.0cm)Asc. Aorta cm IVSd1.1 (0.7-1.1cm)RV (D) (1.8-2.4cm) PWd1.0 (0.7-1.1cm) Mitral Valve MitralMitral Stenosis E wave0.46m/sMV Mean GR.mmHg A wave0.59m/sMV Peak GR.mmHg E/A ratio0.82D MVAcm2 DECEL [id number] 1/2 Timems Aortic Valve Aortic ValveAortic Stenosis V10.89m/Khushi Mean GR.3mmHg V21.17m/Khushi Peak GR.5mmHg LVOT Diameter1.9 (1.8-2.4cm)Doppler AVA2.16cm2 AI P 1/2 Dzxl012.81ms Pulmonic Valve V20.68m/s Tricuspid Valve TR Velocity1.94m/s [id number] Other Information Technically limited study due to body habitus and on vent. Conclusion lvef 40% mild to moderate LVH moderate LV dysfunction aortic sclerosis RV enlarged biatrial enlargement
--- NOTE | 2024-10-18 17:04 | DVHPNRES ---
Progress Note Date Seen: Oct 18, 2024 Resident Creating Document: FANY LOZA Medical Necessity Reason Pt with a Central, PICC or Fol: Yes The following are medically ne: Central Line, Morales Catheter Subjective Review of Systems This is a 84-year-old Pashto-speaking female with a past medical history of dementia, type 2 diabetes mellitus, hypertension, and hyperlipidemia brought into the ED by her son due to concerns of worsening altered level of consciousness (ALOC) and respiratory distress. According to EMS and her son, the patient has had progressive cognitive and functional decline over the past year, with near-complete inactivity. Over the past week, she has had markedly reduced appetite and oral intake, and for the past two days, she has not taken anything by mouth. Her son noted pooling of food and secretions in her mouth and increasing confusion beyond her baseline dementia. She reportedly stopped speaking approximately two months ago and has been mostly somnolent, spending most of the day sleeping. Despite this, she remains able to ambulate with assistance and can still recognize her son. Her son also reports that she has appeared sad and in pain recently. In the past several days, she developed difficulty chewing and swallowing, with pooling of saliva and food in her mouth, raising concern for aspiration. EMS noted an oxygen saturation of 80% on room air, which improved to 90% with 4L nasal cannula. On arrival to the ED, the patient was sedated, intubated, and placed on mechanical ventilation. Her son denies any recent fever, chills, cough, chest pain, shortness of breath, diarrhea, recent injuries, or sick contacts. Patient is resting on a specialty ICU bed and requires maximum assistance for turning and repositioning. Current Dg score is 12, indicating high risk for pressure injuries. Patient was repositioned to her left side for skin assessment. Past medical history: HTN, HLD, T2DM, Dementia Past surgical history: bilateral tubal ligation (BTL) Family history: Noncontributory Social history: Lives with the . Denies smoking, alcohol and other drug abuse Allergies: No known allergies Home medications: Atenolol 25 mg, pravastatin 20 mg, metformin 500 mg Constitutional: reports: weakness; denies: chills, diaphoresis, fatigue, fever, malaise, sweats, others Eyes: No Pain, No Vision change, No Conjunctivae inflammation, No Eyelid inflammation, No Other, No Redness ENT: No Ear pain, No Ear discharge, No Nose pain, No Nose discharge, No Nose congestion, No Mouth pain, No Mouth swelling, No Throat pain, No Throat swelling, No Other Cardiovascular: No Chest Pain, No Palpitations, No Orthopnea, No Paroxysmal No Dyspnea, No Edema, No Lt Headedness, No Other Respiratory: No Cough, No Dry, No Shortness of breath, No SOB with exertion, No Wheezing, No Hemoptysis, No Pleuritic Pain, No Sputum, No Other Gastrointestinal: Nausea, Vomiting, No Abdominal Pain, No Diarrhea, No Constipation, No Melena, No Hematochezia, No Other Genitourinary: No Dysuria, No Frequency, No Incontinence, No Hematuria, No Retention, No Other Musculoskeletal: No other, No neck pain, No shoulder pain, No arm pain, No back pain, No hand pain, No leg pain, No foot pain Skin: No Rash, No Lesions, No Jaundice, No Bruising, No Other Objective vital signs Vital Sign Date Time Temp Pulse Resp B/P (MAP) Pulse Ox O2 Delivery O2 Flow Rate FiO2 10/18/24 15:46 75 16 105/56 (72) 99 30 10/18/24 14:00 Mechanical Ventilator+ 10/18/24 08:00 98.2 98.2 10/16/24 10:45 0 Total Intake and Output 10/17/24 10/17/24 10/18/24 15:00 23:00 07:00 Intake Total 487.832 ml 674.623 ml 1126.526 ml Output Total 225 ml 350 ml Balance 487.832 ml 449.623 ml 776.526 ml medications Current Medications Medications Dose Ordered Sig/Bryon Route Start Time Stop Time Status Last Admin Dose Admin Propofol 100 ml @ 1.347 mls/ hr Q24H IV 10/16/24 11:30 10/17/24 14:26 2.694 MLS/HR Fentanyl Citrate 250 ml @ 2.5 mls/hr Q24H IV 10/16/24 11:30 10/17/24 23:57 5 MLS/HR Sodium Chloride 10 ml Q8HR IV 10/16/24 14:00 10/18/24 09:08 10 ML Docusate Sodium 100 mg BIDPRN PRN PO 10/16/24 12:15 Acetaminophen 650 mg Q6HP PRN PO 10/16/24 12:15 Enoxaparin Sodium 40 mg DAILY SC 10/17/24 10:00 10/18/24 09:09 40 MG Norepinephrine Bitartrate 250 ml @ 3.75 mls/hr Q24H IV 10/16/24 18:45 10/17/24 18:45 7.5 MLS/HR Diagnostic Test (Pha) 1 strip IQ4HR 10/17/24 04:00 10/18/24 16:03 1 STRIP Insulin Human Regular IQ4HR SC 10/17/24 04:00 10/18/24 16:21 4 UNITS Dextrose 50 ml UD PRN IV 10/17/24 02:00 Insulin Glargine 15 units BID@0700,2200 SC 10/17/24 07:00 10/18/24 06:39 15 UNITS Pantoprazole Sodium 40 mg DAILY IV 10/17/24 10:00 10/18/24 09:08 40 MG Enteral Nutritional Formula 1,000 ml 30ML/HR GT 10/17/24 09:15 10/17/24 14:20 1,000 ML Vancomycin HCl 0 ml @ 0 mls/hr UD IV 10/17/24 09:15 Purified Water 250 ml Q4HR GT 10/17/24 14:00 10/18/24 14:13 250 ML Cefepime HCl 50 ml @ 12.5 mls/hr Q12HR IV 10/17/24 11:00 10/18/24 09:08 12.5 MLS/HR Vancomycin HCl 100 ml @ 100 mls/hr DAILY@1300 IV 10/18/24 13:00 10/18/24 12:35 100 MLS/HR Examination General Appearance: Moderate Distress, Intubated and sedated Head Exam: Normal inspection. Pupils are equal and constricted Neck Exam: Normal inspection. Non-tender. Normal alignment Pulmonary/Respiratory: Chest non-tender, Bilateral rhonchi Cardiovascular/Chest: Regular rate and rhythm. No murmurs. No JVD. Peripheral Pulses: 3+ Radial (R). 3+ Radial (L). 2+ Pedal (R). 2+ Pedal (L) Abdominal Exam: Normal bowel sounds. Soft. normal abdomen, no visible veins, Nontender. No hepatospenomegaly. No masses Ankle Exam: Negative ankle edema Lower extremities: lower extremity edema Skin Exam: Normal inspection. Normal color. Warm. Dry laboratory and microbiology Laboratory Tests 10/18/24 03:20 Test 10/18/24 03:20 Range/Units Serum Glucose 174 H 74-106 mg/dL Microbiology Date/Time Source Procedure Growth Status 10/17/24 12:05 Blood Blood Culture - Preliminary NO GROWTH AFTER 24 HOURS OF INCUBATION. 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 # Acute on chronic metabolic encephalopathy likely due to sepsis # Dementia -Leukocytosis, lactic acid elevated, elevated LFTs -sedated with propofol and fentanyl -head CT showed no acute changes except chronic vascular changes -delirium precautions CVS # Septic shock likely from community acquired pneumonia # essential hypertension # dyslipidemia # NSTEMI likely type 2 -currently on Levophed titrating as tolerated -monitor troponins to rule out cardiac etiology, ordered new EKG -Echocardiogram shows LVEF 40%, mild to moderate LVH, moderate LV dysfunction, aortic sclerosis, RV enlarged, biatrial enlargement -Cardiac consult if needed -continuously monitor hemodynamics -hold antihypertensives for now -continue antibiotics RS # Acute hypoxic respiratory failure s/p intubation 10/16/24 # Possible aspiration pneumonia # septic shock likely from pneumonia -ICU status -intubated and on mechanical ventilation RR 16, VTE 408, FiO2 30%, peep 5 -daily CXR and ABGs -pancultures -initial Blood cultures positive for G+ cocci in chains and clusters. Ordered blood cultures again. -Initial Respiratory cultures showed moderate growth of G- rods. -antibiotics cefepime and vancomycin -pulmonary consult GI/Liver -Protonix for ulcer prophylaxis -Glucerna for tube foods # Mild transmainitis-monitor lab for now /Kidney/Metabolic # BRENDA likely due to VMN on CKD -monitor lab -avoid nephrotoxic agents -IVF # hypernatremia mild -free water through GT -monitor lab # Hypokalemia -Repleting -Monitor lab Endo # uncontrolled type 2 DM with a severe hyperglycemia -HbA1c -aggressive sliding scale -insulin Lantus 15 units b.i.d. ID # Aspiration pneumonia # Gram-positive bacteremia -continue vanc/Cefepime for broad-spectrum antibiotics -initial blood cultures showed Gram-positive cocci -ordered repeat blood cultures MSK/Cut HemeOnc PUD PPX: Protonix DVT PPX: Lovenox Diet: Glucerna through GT Drips Diprivan 5 mcg/kg/min Fentanyl 75 mcg/h Levophed 8mg Lines Intubation 10/17 Right IJ cvc 10/17 Goals of care discussed with the patient's daughter in law for 27 minutes: Full code status Care plan updated to the bedside to daughter in law Critical care time spent excluding procedures for more than 113 minutes Case discussed with Dr. Singleton Plan discussed with: Daughter Dietary Evaluation Review Recommendations by RD: Increase Calorie Intake Comments: 1) Increase TF regimen to 60 mL/hr goal rate as tolerated. Flush with 250 mL Q6H. Goal rate will provide 1728 kcals, 86g Pro, and 2160 mL free H2O per 24 hrs. Goal rate will meet ~97% estimated energy needs and ~75% estimated protein needs 2) Advance to 60g CCHO cardiac diet when medically feasible, pending ST approval 3) Follow-up with cardiology, pulmonology, and neurology 4) Continue to monitor I&O, labs, and skin integrity Expected Outcomes/Goals: 1) nutrition support to meet at least 75% estimated needs 2) diet to advance 3) labs to improve 4) f/u in 2-3 days Sepsis reassessment post fluid Is the fluid challenge complet: Yes Date of Reassessment: Oct 16, 2024 Time of Reassessment: 1300 Blood Culture Time: 1200 Time Antibiotics Given: 1230 Systolic BP: 134 Diastolic BP: 62 Blood Pressure Mean: 86 Respiration: 16 Respiratory Effort: Non-Labored, Labored Respiratory Pattern: Regular Oxygen Saturation: 99 Pulse Rate: 133 Pulse Location: Radial Pulse Strength: Normal Pulse Assessment Method: Palpation Pulse Rhythm: Regular Capillary Refill: < 3 seconds Heart Sounds: S1 & S2 Breath sounds: Clear Skin Moisture: Dry Skin Tugor: WNL Skin Color: Mottled Date of Service: Oct 18, 2024 Billing Provider: JAMES SINGLETON MD Common Visit Codes: [id number] CARE 30-74 MIN FANY LOZA RESIDENT Oct 18, 2024 17:04 EBONIE GREENFIELD RESIDENT Oct 18, 2024 17:58 JAMES SINGLETON MD Oct 19, 2024 13:49
--- NOTE | 2024-10-18 23:24 | DVHINCON2 ---
Date of service: Oct 18, [address] Vanegas Reason for Consultation Acute hypoxic respiratory failure requiring mechanical ventilator and aspiration pneumonia. History of Present Illness An 84-year-old Nepali speaking woman with prior medical history of dementia, high lipids, hypertension, and diabetes who presented to ED via EMS on 10/16/24 with complaint of generalized weakness. EMS reported per family, patient had one episode of emesis two days prior and she is usually altered with dementia but more so this month. EMS on scene reports pt had a saturation of 80% on room air and was given nasal cannula of 4 L which brought it up to 90%. Pt denied chills, fever, N/V/D, chest pain or other acute complaints. Patient was subsequently intubated, placed on mechanical ventilator and admitted for further care. Pulmonary consultation is requested for evaluation of aspiration pneumonia and vent management. Review of Systems: Unable to obtain d/t intubated status. Past Medical History: Dementia, DM, High Lipids, HTN Past Surgical History: BTL. Medications: Reviewed. Allergies: No known drug allergies. Family History: No family history of premature CAD. No family history of lung disorders. Social History: Nonsmoker. No alcohol or illicit drug use. Family History: Patient reports no known family medical history. Allergies: Coded Allergies: NO KNOWN ALLERGIES (Unverified , 11/20/12) Home Meds Reported Medications Atenolol (Atenolol) 25 Mg Tab, 1 TAB PO DAILYPRN 06/18/20 Pravastatin Sodium (PRAVACHOL TABLET) 20 Mg Tb, 1 TAB PO 06/18/20 Metformin Hydrochloride (Metformin Hydrochloride) 500 Mg Tab, 1 TAB PO BID 06/18/20 Current Medications Current Medications Medications (Trade) Dose Ordered Sig/Bryon Route PRN Reason Start Time Stop Time Status Last Admin Vancomycin HCl 100 ml @ 100 mls/hr DAILY@1300 IV 10/18/24 13:00 10/18/24 12:35 Vital Signs Vital Signs Date Time Temp Pulse Resp B/P (MAP) Pulse Ox O2 Delivery O2 Flow Rate FiO2 10/18/24 22:30 81 21 124/68 (86) 98 10/18/24 22:25 30 10/18/24 22:00 Mechanical Ventilator+ 10/18/24 20:00 97.9 97.9 10/16/24 10:45 0 Physical Exam Gen.: Patient lying in bed in medical ICU. Sedated, intubated on mechanical ventilator. Head: Normocephalic, atraumatic. Eyes: PERRLA. Ears: Normal external anatomy. Throat: Endotracheal tube and orogastric tube in place. Neck: Supple, trachea midline. Chest: Transmitted breath sounds bilaterally. Decreased air entry bilaterally. No wheezing. Bibasilar crackles. Cardiovascular: Positive S1, positive S2. Regular rate and rhythm. Abdomen: Positive bowel sounds in all 4 quadrants. Soft, nontender, nondistended. : Morales in place. Normal external genitalia. Rectal: Deferred. Skin: Warm, dry. Intact. Extremities: 2+ radial pulses bilaterally. No lower extremity edema. Neuro: Sedated. Labs/Diagnostic Data Labs Test 10/18/24 19:47 10/18/24 07:23 10/18/24 03:20 10/17/24 17:40 Range/Units POC Glucose 112 H 70-106 mg/dl Blood Gas Specimen Type Arterial Blood Gas Sample Site Left radial Blood Gas Patient Temperature 37.0 Arterial Blood Date Drawn [id number] Arterial Blood pH 7.491 H 7.350-7.450 Arterial Blood Partial Pressure CO2 28.7 L 32.0-45.0 mmHg Arterial Blood Partial Pressure O2 107.0 83.0-108.0 mmHg Arterial Blood HCO3 21.4 21.0-28.0 mmol/L Arterial Blood Oxygen Saturation 98.0 94.0-98.0 % Arterial Blood Base Excess -0.8 -2.0-3.0 mmol/L Arterial Blood Oxyhemoglobin 97.9 94.0-98.0 % Arterial Blood Carboxyhemoglobin 0.1 L 0.5-1.5 % Arterial Blood Methemoglobin 0.0 0.0-1.5 % Margarito Test Modified Blood Gas Total Hemoglobin 13.00 12.0-16.0 g/dL Blood Gas Set Respiration Rate 16.0 Blood Gas Modality Vent - ac FiO2 % 30.0 Blood Gas Tidal Volume 400.0 Blood Gas PEEP or CPAP 5.0 White Blood Count 15.4 H 4.4-10.8 10^3/uL Red Blood Count 3.83 L 4.0-5.20 10^6/uL Hemoglobin 12.7 12.2-16.2 g/dL Hematocrit 37.6 36.0-46.0 % Mean Corpuscular Volume 98.2 80.0-100.0 fL Mean Corpuscular Hemoglobin 33.0 H 28.0-32.0 pg Mean Corpuscular Hemoglobin Concent 33.6 32.0-36.0 g/dL Red Cell Distribution Width 15.1 H 11.8-14.3 % Platelet Count 146 140-450 10^3/uL Mean Platelet Volume 9.1 6.9-10.8 fL Neutrophils (%) (Auto) 85.0 H 37.0-80.0 % Lymphocytes (%) (Auto) 9.7 L 10.0-50.0 % Monocytes (%) (Auto) 5.1 0.0-12.0 % Eosinophils (%) (Auto) 0.1 0.0-7.0 % Basophils (%) (Auto) 0.1 0.0-2.0 % Neutrophils # (Auto) 13.1 H 1.6-8.6 10 ^3/uL Lymphocytes # (Auto) 1.5 0.4-5.4 10 ^3/uL Monocytes # (Auto) 0.8 0-1.3 10 ^3/uL Eosinophils # (Auto) 0 0-0.8 10 ^3/uL Basophils # (Auto) 0 0-0.2 10 ^3/uL Nucleated Red Blood Cells 0.2 % Sodium Level 146 H 136-145 mmol/L Potassium Level 3.4 L 3.5-5.1 mmol/L Chloride Level 112 H 98-107 mmol/L Carbon Dioxide Level 24 20-31 mmol/L Anion Gap 10 5-15 Blood Urea Nitrogen 44 H 9-23 mg/dL Creatinine 0.75 # 0.550-1.02 mg/dL Glomerular Filtration Rate Calc 79 >90 mL/min BUN/Creatinine Ratio 58.7 H 10.0-20.0 Serum Glucose 174 H 74-106 mg/dL Calcium Level 8.1 L 8.7-10.4 mg/dL Magnesium Level 2.2 1.6-2.6 mg/dL Total Bilirubin 0.5 0.2-1.0 mg/dL Aspartate Amino Transferase (AST) 57 H 13-40 U/L Alanine Aminotransferase (ALT) 85 H 7-40 U/L Alkaline Phosphatase 141 H 46-116 U/L Total Protein 6.2 5.7-8.2 g/dL Albumin 2.7 L 3.2-4.8 g/dL Troponin I High Sensitivity 51 *H </=34 ng/L Test 10/17/24 12:16 10/17/24 03:09 10/16/24 17:40 10/16/24 15:29 Range/Units Ammonia 27 11-32 umol/L Vitamin B12 Level 1483 H 211-911 pg/mL Thyroid Stimulating Hormone (TSH) 1.30 0.55-4.78 uIU/mL Hemoglobin A1c 8.4 H <5.7 % A1C B-Type Natriuretic Peptide 64.44 0-100 pg/mL Urine Color Yellow Yellow Urine Clarity Turbid H Clear Urine pH 5.0 5.0-9.0 Urine Specific [place] 1.019 1.001-1.035 Urine Protein Trace H Negative Urine Ketones Negative Negative Urine Blood 2+ H Negative /uL Urine Nitrite Negative Negative Urine Bilirubin Negative Negative Urine Urobilinogen 2 H Negative mg/dL Urine Leukocyte Esterase Negative Negative /uL Urine RBC <1 0 - 4 /hpf Urine Microscopic WBC 3 0-5 /HPF Urine Squamous Epithelial Cells Few <5 /hpf Urine Amorphous Crystals Few None Seen /hpf Urine Bacteria Few H None Seen /hpf Urine Hyaline Casts Few 0 - 2 /lpf Urine Mucus Few None Seen Urine Glucose 4+ H Normal mg/dL Lactic Acid Level 5.6 *H 0.4-2.0 mmol/L Test 10/16/24 12:17 Range/Units Prothrombin Time 10.8 9.3-11.8 sec Prothrombin Time INR 1.02 0.9-1.15 Activated Partial Thromboplast Time 23.9 L 24.5-34.5 SEC Beta-Hydroxybutyric Acid 0.368 < 0.4 mmol/L Microbiology Date/Time Source Procedure Growth Status 10/17/24 12:05 Blood Blood Culture - Preliminary NO GROWTH AFTER 24 HOURS OF INCUBATION. Resulted 10/16/24 17:40 Urine - Morales Port Urine Culture - Preliminary Resulted 10/16/24 13:47 Nose MRSA Screen - Final Complete 10/16/24 10:20 Sputum Expectorated Sputum Gram Stain - Final Resulted 10/16/24 10:20 Sputum Expectorated Sputum Respiratory Culture - Preliminary Resulted Assessment Impression: Acute hypoxic respiratory failure On mechanical ventilator Shock Aspiration pneumonia Atelectasis Plan: s/p intubation on mechanical ventilator. CXR image and report reviewed. Devices in place. Minimal basilar atelectasis. ABG reviewed, shows alkalemia. On AC mode; RR 16, VT 400, PEEP 5, FiO2 30% Titrate FIO2 to keep O2 saturation above 90%. VAP bundle. Daily ABG and CXR while intubated Sedate for ventilator synchrony - on Propofol and Fentanyl Head of bed elevation Aspiration precautions Continue antibiotics. F/u cultures. On pressors for hemodynamic support Levophed 4 mcg/min started this PM. Titrate to keep mean arterial pressure greater than 65 mmHg. Monitor renal function Monitor electrolytes. Supplement as necessary. Monitor ins and outs. Maintain euvolemia. SBT/YAZAN. Taper sedation as tolerated CPAP in AM with PS 8, PEEP of 5. GI prophylaxis. DVT prophylaxis. Prognosis: Poor given patient's multiple co-morbidities. Condition: Critical Rest of plan per hospitalist and other consultants. A total of 35 minutes of critical care time was spent reviewing the patient record, examining the patient, making a diagnostic and therapeutic plan, discussing this plan with the medical personnel, following up on diagnostic studies and following the patient for clinical stability excluding any and all procedures. At least 50% of this time was spent in direct, [id number] contact. Thank you Dr. Vanegas for allowing me to participate in this patient's care. Further recommendations will depend on the patient's clinical course. Please do not hesitate to contact me if you have any questions or concerns. This medical document was created using an electronic medical record system with [employer] dictation system. Although these documentations are being carefully reviewed, there may still be some phonetic and typographical changes. The errors are purely typographical, due to imperfection on the software program, and do not reflect any compromise in the patient's medical care. Plan discussed with: Other (JUAN PABLO Spencer/) JERMAN BACON MD Oct 18, 2024 23:24
[2024-10-19] VITALS (111 sets, daily range): BP systolic 88–143; BP diastolic 48–82; PULSE 62–169; RESP 12–25; TEMP 97.8–98.6; O2SAT 95–100
[2024-10-19 03:49] LABS: Hematocrit 35.0 % (36.0-46.0); Hemoglobin 11.9 g/dL (12.2-16.2); Mean Corpuscular Hemoglobin 33.3 pg (28.0-32.0); Mean Corpuscular Volume 97.9 fL (80.0-100.0); Nucleated Red Blood Cells % 0.1 %
[2024-10-19 04:09] LABS: Alanine Aminotransferase 74 U/L (7-40); Albumin 2.6 g/dL (3.2-4.8); Alkaline Phosphatase 126 U/L (46-116); Anion Gap 9 (5-15); BUN/Creatinine Ratio 49.1 (10.0-20.0); Bilirubin, Total 0.8 mg/dL (0.2-1.0); Blood Urea Nitrogen 28 mg/dL (9-23); Calcium 7.6 mg/dL (8.7-10.4); Carbon Dioxide 24 mmol/L (20-31); Chloride 108 mmol/L (98-107); Glucose 121 mg/dL (74-106); Magnesium 1.9 mg/dL (1.6-2.6); Potassium 3.7 mmol/L (3.5-5.1); Sodium 141 mmol/L (136-145); Total Protein 5.8 g/dL (5.7-8.2)
--- NOTE | 2024-10-19 05:33 | DVH ---
CHEST RADIOGRAPH Indication: aspiration pna Technique: 1 view Comparison: XY CHEST PORTABLE on DOS: 10/18/24, XY CHEST PORTABLE on DOS: 10/17/24, XY CHEST PORTABLE o n DOS: 10/16/24, CHEST PORTABLE on DOS: 06/18/20 FINDINGS: Lines and Tubes: Unchanged endotracheal tube, enteric tube, and right IJ catheter. Lungs/Pleura: Unchanged. Cardiomediastinum: Unchanged. Other: Unchanged osseous structures. IMPRESSION: 1. No significant change from the previous study. Stable support devices. No significant cardiopulm onary abnormality.
[2024-10-19 09:10] LABS: Base Excess 1.1 mmol/L (-2.0-3.0)
--- NOTE | 2024-10-19 13:48 | DVHPN2 ---
Subjective Intubated Off sedation Changes from previous H/P or p: Changes Objective Vitals Vital Signs Date Time Temp Pulse Resp B/P (MAP) Pulse Ox O2 Delivery O2 Flow Rate FiO2 10/19/24 12:18 91 10/19/24 12:18 30 10/19/24 12:18 16 98 Mechanical Ventilator+ 10/19/24 12:07 107/65 (79) 10/19/24 08:00 98.5 98.5 Intake/Output Intake and Output 10/19/24 07:00 Intake Total 1859.078 ml Output Total 650 ml Balance 1209.078 ml Intake Oral 1250 ml IV Total 351.078 ml Tube Feeding 258 ml Output Urine Total 650 ml Stool Total 0 ml General Appearance: Other (Intubated and sedated) Lungs: Other (Bilateral rhonchi) Cardiovascular: Regular rate, Normal S1 Abdomen: Normal bowel sounds, Soft Extremities: No edema Medications Current Medications Medications Dose Ordered Sig/Bryon Route Start Time Stop Time Status Last Admin Dose Admin Propofol 100 ml @ 1.347 mls/ hr Q24H IV 10/16/24 11:30 10/18/24 20:02 1.347 MLS/HR Fentanyl Citrate 250 ml @ 2.5 mls/hr Q24H IV 10/16/24 11:30 10/17/24 23:57 5 MLS/HR Sodium Chloride 10 ml Q8HR IV 10/16/24 14:00 10/19/24 05:04 10 ML Docusate Sodium 100 mg BIDPRN PRN PO 10/16/24 12:15 Acetaminophen 650 mg Q6HP PRN PO 10/16/24 12:15 Enoxaparin Sodium 40 mg DAILY SC 10/17/24 10:00 10/19/24 10:05 40 MG Norepinephrine Bitartrate 250 ml @ 3.75 mls/hr Q24H IV 10/16/24 18:45 10/17/24 18:45 7.5 MLS/HR Diagnostic Test (Pha) 1 strip IQ4HR 10/17/24 04:00 10/19/24 11:58 1 STRIP Insulin Human Regular IQ4HR SC 10/17/24 04:00 10/19/24 04:09 2 UNITS Dextrose 50 ml UD PRN IV 10/17/24 02:00 Insulin Glargine 15 units BID@0700,2200 SC 10/17/24 07:00 10/18/24 06:39 15 UNITS Pantoprazole Sodium 40 mg DAILY IV 10/17/24 10:00 10/19/24 10:05 40 MG Enteral Nutritional Formula 1,000 ml 30ML/HR GT 10/17/24 09:15 10/17/24 14:20 1,000 ML Vancomycin HCl 0 ml @ 0 mls/hr UD IV 10/17/24 09:15 Purified Water 250 ml Q4HR GT 10/17/24 14:00 10/19/24 10:05 250 ML Cefepime HCl 50 ml @ 12.5 mls/hr Q12HR IV 10/17/24 11:00 10/19/24 10:05 12.5 MLS/HR Vancomycin HCl 100 ml @ 100 mls/hr Q12H IV 10/19/24 13:00 Laboratory Results Laboratory Tests 10/19/24 03:08 Chemistry Test 10/19/24 03:08 Albumin 2.6 g/dL (3.2-4.8) L Calcium Level 7.6 mg/dL (8.7-10.4) L Magnesium Level 1.9 mg/dL (1.6-2.6) Total Protein 5.8 g/dL (5.7-8.2) LFT Test 10/19/24 03:08 Alanine Aminotransferase (ALT) 74 U/L (7-40) H Alkaline Phosphatase 126 U/L (46-116) H Aspartate Amino Transferase (AST) 51 U/L (13-40) H Total Bilirubin 0.8 mg/dL (0.2-1.0) Urinalysis Test 10/16/24 17:40 Urine Color Yellow (Yellow) Urine Clarity Turbid (Clear) H Urine pH 5.0 (5.0-9.0) Urine Specific [place] 1.019 (1.001-1.035) Urine Protein Trace (Negative) H Urine Ketones Negative (Negative) Urine Blood 2+ /uL (Negative) H Urine Nitrite Negative (Negative) Urine Bilirubin Negative (Negative) Urine Urobilinogen 2 mg/dL (Negative) H Urine Leukocyte Esterase Negative /uL (Negative) Urine RBC <1 /hpf (0 - 4) Urine Microscopic WBC 3 /HPF (0-5) Urine Squamous Epithelial Cells Few /hpf (<5) Urine Amorphous Crystals Few /hpf (None Seen) Urine Bacteria Few /hpf (None Seen) H Urine Hyaline Casts Few /lpf (0 - 2) Urine Mucus Few (None Seen) Urine Glucose 4+ mg/dL (Normal) H Blood Gas Results Test 10/19/24 08:51 Arterial Blood pH 7.487 (7.350-7.450) FiO2 % 30.0 Microbiology Microbiology Date/Time Source Procedure Growth Status 10/17/24 12:05 Blood Blood Culture - Preliminary NO GROWTH AFTER 48 HOURS OF INCUBATION. Resulted 10/16/24 17:40 Urine - Morales Port Urine Culture - Preliminary Resulted 10/16/24 13:47 Nose MRSA Screen - Final Complete 10/16/24 10:20 Sputum Expectorated Sputum Gram Stain - Final Resulted 10/16/24 10:20 Sputum Expectorated Sputum Respiratory Culture - Preliminary Resulted Assessment/Plan Assessment/Plan Acute hypoxic respiratory failure Status post intubation Sepsis due to UTI Bacteremia Urinary tract infection Dementia Type 2 diabetes Hypertension Mixed hyperlipidemia Hypokalemia Hypernatremia Plan Mechanical ventilation Sedation with fentanyl and propofol as needed IV antibiotics with cefepime and vancomycin Free water via the NG tube Replace potassium as needed Urine culture preliminary is more than 100,000 colonies of Gram-negative rods Blood culture shows Gram-positive cocci in clusters and chains x2 bottles Discussed with the son at the bedside 10/19/2024: Bacteremia: Repeat blood culture is negative UTI Sepsis Acute hypoxic respiratory failure Off sedation currently for preparation for possible CPAP trial Hypernatremia: Better sodium is 141 today Continue free water IV antibiotics: Cefepime and vancomycin Dr. Nur to try CPAP trial possibly today or tomorrow Plan discussed with: Other My Orders Orders - JAMES GIRARD MD Procedure Category Date Status Time * Dietary Consult CONS 10/18/24 Transmitted 16:08 * Wound Consult CONS 10/18/24 Transmitted Apply Z-Guard ADELE 10/18/24 In Process 13:08 Date of Service: Oct 19, 2024 Billing Provider: JAMES GIRARD MD Common Visit Codes: [id number] CARE 30-74 MIN JAMES GIRARD MD Oct 19, 2024 13:48
[2024-10-19] MEDS: VANCOMYCIN 750MG KIT 100 ML IV SCH (14:27)
[2024-10-19] MEDS: AMIODARONE BOLUS KIT 100 ML IV ONE ×2 (16:32→16:39)
[2024-10-19] MEDS: AMIODARONE 360mg/200mL PREMIX 200 ML IV ONE ×2 (16:39→16:45)
[2024-10-19] MEDS: DEXMEDETOMIDINE HCL IN D5W 100 ML IV SCH (19:15)
[2024-10-19] MEDS: AMIODARONE 360mg/200mL PREMIX 200 ML IV SCH (22:11)
--- NOTE | 2024-10-19 23:03 | DVHPN2 ---
Progress Note - Dictate Date Seen: Oct 19, 2024 Medical Necessity Reason Pt with a Central, PICC or Fol: Yes The following are medically ne: Central Line, Morales Catheter Subjective Patient seen and examined at bedside. Intubated on mechanical ventilator. Overnight events reviewed. vital signs Vital Sign Date Time Temp Pulse Resp B/P (MAP) Pulse Ox O2 Delivery O2 Flow Rate FiO2 10/19/24 22:09 84 16 110/70 (83) 99 30 10/19/24 20:00 Mechanical Ventilator+ 10/19/24 20:00 98.3 98.3 Total Intake and Output 10/18/24 10/18/24 10/19/24 15:00 23:00 07:00 Intake Total 209.526 ml 700.776 ml 948.776 ml Output Total 400 ml 250 ml Balance 209.526 ml 300.776 ml 698.776 ml medications Current Medications Medications Dose Ordered Sig/Bryon Route Start Time Stop Time Status Last Admin Dose Admin Propofol 100 ml @ 1.347 mls/ hr Q24H IV 10/16/24 11:30 10/18/24 20:02 1.347 MLS/HR Fentanyl Citrate 250 ml @ 2.5 mls/hr Q24H IV 10/16/24 11:30 10/17/24 23:57 5 MLS/HR Sodium Chloride 10 ml Q8HR IV 10/16/24 14:00 10/19/24 21:57 10 ML Docusate Sodium 100 mg BIDPRN PRN PO 10/16/24 12:15 Acetaminophen 650 mg Q6HP PRN PO 10/16/24 12:15 Enoxaparin Sodium 40 mg DAILY SC 10/17/24 10:00 10/19/24 10:05 40 MG Norepinephrine Bitartrate 250 ml @ 3.75 mls/hr Q24H IV 10/16/24 18:45 10/17/24 18:45 7.5 MLS/HR Diagnostic Test (Pha) 1 strip IQ4HR 10/17/24 04:00 10/19/24 20:30 1 STRIP Insulin Human Regular IQ4HR SC 10/17/24 04:00 10/19/24 20:28 2 UNITS Dextrose 50 ml UD PRN IV 10/17/24 02:00 Insulin Glargine 15 units BID@0700,2200 SC 10/17/24 07:00 10/19/24 21:54 15 UNITS Pantoprazole Sodium 40 mg DAILY IV 10/17/24 10:00 10/19/24 10:05 40 MG Enteral Nutritional Formula 1,000 ml 30ML/HR GT 10/17/24 09:15 10/19/24 21:56 1,000 ML Vancomycin HCl 0 ml @ 0 mls/hr UD IV 10/17/24 09:15 Purified Water 250 ml Q4HR GT 10/17/24 14:00 10/19/24 21:57 250 ML Cefepime HCl 50 ml @ 12.5 mls/hr Q12HR IV 10/17/24 11:00 10/19/24 21:56 12.5 MLS/HR Vancomycin HCl 100 ml @ 100 mls/hr Q12H IV 10/19/24 13:00 10/19/24 14:27 100 MLS/HR objective Gen.: Patient lying in bed in medical ICU; intubated on mechanical ventilator. Head: Normocephalic, atraumatic. Eyes: PERRLA. Ears: Normal external anatomy. Throat: Endotracheal tube and orogastric tube in place. Neck: Supple, trachea midline. Chest: Transmitted breath sounds bilaterally. Decreased air entry bilaterally. No wheezing. Bibasilar crackles. Cardiovascular: Positive S1, positive S2. Regular rate and rhythm. Abdomen: Positive bowel sounds in all 4 quadrants. Soft, nontender, nondistended. : Morales in place. Normal external genitalia. Rectal: Deferred. Skin: Warm, dry. Intact. Extremities: 2+ radial pulses bilaterally. No lower extremity edema. Neuro: Off sedation laboratory and microbiology Laboratory Tests 10/19/24 03:08 Test 10/19/24 03:08 Range/Units Serum Glucose 121 H 74-106 mg/dL Assessment/Plan Impression: Acute hypoxic respiratory failure On mechanical ventilator Shock Aspiration pneumonia Atelectasis Events: Remains on vent support On AC mode; RR 16, VT 500, PEEP 5, FiO2 30% Taper FiO2 as tolerated Currently off Propofol CXR image and report reviewed. Devices in place. No acute disease. ABG reviewed, shows alkalemia. Head of bed elevation Aspiration precautions Continue antibiotics. Awaiting for mentation to improve Troponin trending down. Cardiology recs appreciated. Protonix for GI prophylaxis Lovenox for DVT prophylaxis Labs and imaging reviewed. Rest of plan as noted below. Plan: s/p intubation on mechanical ventilator. On AC mode; RR 16, VT 500, PEEP 5, FiO2 30% Titrate FIO2 to keep O2 saturation above 90%. VAP bundle. Daily ABG and CXR while intubated Off sedation Head of bed elevation Aspiration precautions Continue antibiotics. F/u cultures. Pressors as necessary for hemodynamic support Titrate to keep mean arterial pressure greater than 65 mmHg. Monitor renal function Monitor electrolytes. Supplement as necessary. Monitor ins and outs. Maintain euvolemia. SBT/YAZAN. GI prophylaxis. DVT prophylaxis. Prognosis: Poor given patient's multiple co-morbidities. Condition: Critical Rest of plan per hospitalist and other consultants. A total of 35 minutes of critical care time was spent reviewing the patient record, examining the patient, making a diagnostic and therapeutic plan, discussing this plan with the medical personnel, following up on diagnostic studies and following the patient for clinical stability excluding any and all procedures. At least 50% of this time was spent in direct, [id number] contact. Thank you Dr. Vanegas for allowing me to participate in this patient's care. Further recommendations will depend on the patient's clinical course. Please do not hesitate to contact me if you have any questions or concerns. This medical document was created using an electronic medical record system with [employer] dictation system. Although these documentations are being carefully reviewed, there may still be some phonetic and typographical changes. The errors are purely typographical, due to imperfection on the software program, and do not reflect any compromise in the patient's medical care. Dietary Evaluation Review Recommendations by RD: Increase Calorie Intake Comments: 1) Increase TF regimen to 60 mL/hr goal rate as tolerated. Flush with 250 mL Q6H. Goal rate will provide 1728 kcals, 86g Pro, and 2160 mL free H2O per 24 hrs. Goal rate will meet ~97% estimated energy needs and ~75% estimated protein needs 2) Advance to 60g [facility] cardiac diet when medically feasible, pending ST approval 3) Follow-up with cardiology, pulmonology, and neurology 4) Continue to monitor I&O, labs, and skin integrity Expected Outcomes/Goals: 1) nutrition support to meet at least 75% estimated needs 2) diet to advance 3) labs to improve 4) f/u in 2-3 days Plan discussed with: Other (JUAN PABLO Witt) Critical Care Time(min): 35 Is the fluid challenge complet: Yes Date of Reassessment: Oct 16, 2024 Time of Reassessment: 1300 Blood Culture Time: 1200 Time Antibiotics Given: 1230 Systolic BP: 134 Diastolic BP: 62 Blood Pressure Mean: 86 Respiration: 16 Respiratory Effort: Non-Labored, Labored Respiratory Pattern: Regular Oxygen Saturation: 99 Pulse Rate: 133 Pulse Location: Radial Pulse Strength: Normal Pulse Assessment Method: Palpation Pulse Rhythm: Regular Capillary Refill: < 3 seconds Heart Sounds: S1 & S2 Breath sounds: Clear Skin Moisture: Dry Skin Tugor: WNL Skin Color: Mottled JERMAN BACON MD Oct 19, 2024 23:03
[2024-10-20] VITALS (107 sets, daily range): BP systolic 102–164; BP diastolic 56–79; PULSE 67–90; RESP 9–39; TEMP 97.4–98.7; O2SAT 83–100
[2024-10-20 04:28] LABS: Hematocrit 38.1 % (36.0-46.0); Hemoglobin 12.9 g/dL (12.2-16.2); Mean Corpuscular Hemoglobin 33.3 pg (28.0-32.0); Mean Corpuscular Volume 98.0 fL (80.0-100.0); Nucleated Red Blood Cells % 0.1 %
[2024-10-20 04:45] LABS: Alanine Aminotransferase 71 U/L (7-40); Albumin 2.7 g/dL (3.2-4.8); Alkaline Phosphatase 138 U/L (46-116); Anion Gap 10 (5-15); BUN/Creatinine Ratio 35.2 (10.0-20.0); Bilirubin, Total 0.7 mg/dL (0.2-1.0); Blood Urea Nitrogen 19 mg/dL (9-23); Calcium 7.8 mg/dL (8.7-10.4); Carbon Dioxide 23 mmol/L (20-31); Chloride 104 mmol/L (98-107); Glucose 161 mg/dL (74-106); Magnesium 1.8 mg/dL (1.6-2.6); Potassium 3.4 mmol/L (3.5-5.1); Sodium 137 mmol/L (136-145); Total Protein 6.3 g/dL (5.7-8.2)
[2024-10-20 07:22] LABS: Base Excess 0.7 mmol/L (-2.0-3.0)
--- NOTE | 2024-10-20 07:49 | ECG ---
[facility] Test Date: 2024-10-17 Test Time: 17:35:22 Pat Name: SETH GARAY Department: ICU Room: [address] [place] [address] A Gender: F Development Engineer: [id number] : 1940 Requested By: JENNIFER CARRILLO Order Number: [id number] Reading MD: Lasha Lozano Measurements Intervals [place] Rate: 87 P: 67 NE: 124 QRS: 63 QRSD: 85 T: 258 QT: 378 QTc: 455 Interpretive Statements Sinus rhythm Atrial premature complex Nonspecific T abnormalities, diffuse leads Baseline wander in lead(s) V2 Electronically Signed On 10-21-2024 13:21:30 PDT by Lasha Lozano Please click the below link to view image of tracing.
--- NOTE | 2024-10-20 08:23 | ECG ---
[facility] Test Date: 2024-10-19 Test Time: 16:31:08 Pat Name: SETH GARAY Department: icu Room: [address] [place] [address] A Gender: F Women Designer: [email or web address] : 1940 Requested By: JAMES GIRARD Order Number: [id number] Reading MD: Lasha Lozano Measurements Intervals [place] Rate: 154 P: 0 TX: 0 QRS: 62 QRSD: 79 T: 48 QT: 303 QTc: 485 Interpretive Statements Atrial fibrillation with rapid V-rate ST depression, probably rate related Electronically Signed On 10-21-2024 13:22:45 PDT by Lasha Lozano Please click the below link to view image of tracing.
--- NOTE | 2024-10-20 09:10 | ECG ---
[facility] Test Date: 2024-10-16 Test Time: 09:32:54 Pat Name: SETH GARAY Department: [facility] ED Patient ID: [facility]-[id number] Room: [address] [place] [address] A Gender: F Capacity Planning Engineer: MICHAEL : 1940 Requested By: SORIN SANTOS Order Number: [id number] Reading MD: Lasha Lozano Measurements Intervals [place] Rate: 119 P: 38 IA: 124 QRS: 42 QRSD: 79 T: 198 QT: 330 QTc: 465 Interpretive Statements Sinus tachycardia Left atrial enlargement Borderline repolarization abnormality Electronically Signed On 10-21-2024 14:21:16 PDT by Lasha Lozano Please click the below link to view image of tracing.
--- NOTE | 2024-10-20 12:36 | DVH ---
EXAM: XY CHEST XRAY 1 VIEW Indication: Pain Technique: Single frontal view of the chest was obtained Comparison: XY CHEST PORTABLE on DOS: 10/19/24, XY CHEST PORTABLE on DOS: 10/18/24, XY CHEST PORTABLE o n DOS: 10/17/24, XY CHEST PORTABLE on DOS: 10/16/24, CHEST PORTABLE on DOS: 06/18/20 FINDINGS: Lines and Tubes: Endotracheal tube projects 3.4 cm above the gabriel. Enteric tube tip projects over expected region stomach. Right internal jugular central venous catheter tip projects over the superio r vena cava. Lungs: No focal consolidation. Pleura: No effusion. No pneumothorax. Cardiomediastinal contours: Unremarkable. Atherosclerotic vascular calcifications of the thoracic ao rta are noted. Bones: No acute osseous abnormality. IMPRESSION: No significant change compared to prior exam.
--- NOTE | 2024-10-20 13:39 | DVH ---
EXAM: XY KUB ABDOMEN SINGLE VIEW HISTORY: hypoactive COMPARISON: PELVIS AP on DOS: 06/22/20 TECHNIQUE: Supine view of the abdomen FINDINGS/IMPRESSION: Nonobstructive bowel gas pattern noted. There is no evidence for pneumoperitoneum. No abnormal calcif ications noted. Left hip arthroplasty. Mild stool burden of the ascending colon. Enteric tube in the left upper quadrant.
[2024-10-20] MEDS ORDERED: DEXTROSE (50%) 50ML SYRG IV PRN (13:45)
[2024-10-20] MEDS: LACTULOSE 20Gm/30ML SOLN PO ONE (14:00)
[2024-10-20] MEDS: VANCOMYCIN 1GM/250ML KIT 250 ML IV SCH (14:02)
[2024-10-20] MEDS: FUROSEMIDE 40 MG/4 ML VIAL IV ONE (14:03)
[2024-10-20 16:02] LABS: Base Excess 0.3 mmol/L (-2.0-3.0)
--- NOTE | 2024-10-20 16:42 | DVH ---
EXAM: XY CHEST PORTABLE HISTORY: confirm NGT placement TECHNIQUE: 1 view of the chest COMPARISON: XY CHEST XRAY 1 VIEW on DOS: 10/20/24 FINDINGS/IMPRESSION: LUNGS: No pleural effusion, consolidation, or pneumothorax MEDIASTINUM: Unremarkable BONES: No acute osseous abnormality OTHER: Enteric tube extending into the central body of the stomach. Right internal jugular central v enous catheter of the cavoatrial junction.
[2024-10-20] MEDS ORDERED: IPRATROPIUM BROM 0.5 MG/2.5ML INH SOL NEB SCH (18:00)
[2024-10-20] MEDS: InsuLIN REG 1unit/0.01ml Soln (100units/ml) SC SCH (18:00)
[2024-10-20] MEDS: ACCU-CHEK COMFORT CURVE STRIP VI SCH (18:01)
--- NOTE | 2024-10-20 18:10 | DVHPNRES ---
Progress Note Date Seen: Oct 20, 2024 Resident Creating Document: MARLIN CID RESIDENT Medical Necessity Reason Pt with a Central, PICC or Fol: Yes The following are medically ne: Central Line, Morales Catheter Subjective Review of Systems This is a 84-year-old Turkmen speaking female with dementia, type 2 diabetes mellitus, AFib paroxysmal, hep C status, UTI, heart failure with a reduced ejection fraction-EF 40%, left hip amiodarone versus 2020 who has been in this facility since 10/16 for sepsis with aspiration pneumonia status post intubation, extubated 10/20. Overnight no events, patient is afebrile, normotensive, off pressors and off sedatives. Extubated today given parameters and CPAP trial was tolerated, RSBI was 24, VC 850, RR 13, tidal volume 546, NIF 39 Objective vital signs Vital Sign Date Time Temp Pulse Resp B/P (MAP) Pulse Ox O2 Delivery O2 Flow Rate FiO2 10/20/24 17:00 83 17 149/78 (101) 99 10/20/24 16:00 Mechanical Ventilator+ 30 30 10/20/24 16:00 97.4 97.4 Total Intake and Output 10/19/24 10/19/24 10/20/24 15:00 23:00 07:00 Intake Total 50.0 ml 971.58 ml 508.28 ml Output Total 350 ml 250 ml Balance 50.0 ml 621.58 ml 258.28 ml medications Current Medications Medications Dose Ordered Sig/Bryon Route Start Time Stop Time Status Last Admin Dose Admin Propofol 100 ml @ 1.347 mls/ hr Q24H IV 10/16/24 11:30 10/18/24 20:02 1.347 MLS/HR Fentanyl Citrate 250 ml @ 2.5 mls/hr Q24H IV 10/16/24 11:30 10/17/24 23:57 5 MLS/HR Sodium Chloride 10 ml Q8HR IV 10/16/24 14:00 10/20/24 14:03 10 ML Docusate Sodium 100 mg BIDPRN PRN PO 10/16/24 12:15 Acetaminophen 650 mg Q6HP PRN PO 10/16/24 12:15 Enoxaparin Sodium 40 mg DAILY SC 10/17/24 10:00 10/20/24 09:02 40 MG Pantoprazole Sodium 40 mg DAILY IV 10/17/24 10:00 10/20/24 09:02 40 MG Enteral Nutritional Formula 1,000 ml 30ML/HR GT 10/17/24 09:15 10/19/24 21:56 1,000 ML Vancomycin HCl 0 ml @ 0 mls/hr UD IV 10/17/24 09:15 Amiodarone HCL/ Dextrose 200 ml @ 16.66 mls/ hr Q12H IV 10/19/24 22:30 Vancomycin HCl 250 ml @ 250 mls/hr Q12H IV 10/20/24 13:00 10/20/24 14:02 250 MLS/HR Diagnostic Test (Pha) 1 strip Q6HR 10/20/24 18:00 Insulin Human Regular Q6HR SC 10/20/24 18:00 Dextrose 50 ml UD PRN IV 10/20/24 13:45 Lactulose 30 ml DAILY PO 10/21/24 10:00 Cefepime HCl 50 ml @ 12.5 mls/hr Q12HR IV 10/20/24 22:00 Examination Elderly patient, lying in bed, no acute distress, off any drips at this time, pupils reactive, RASS -3 General: Well-built, afebrile, palor, mucosae are moist Cardiovascular: Regular S1 and S2. No murmurs, gallops or rubs. No JVD elevation. No pedal edema Respiratory: On minimal vent settings, 30% FiO2, equal air entry bilaterally Abdomen: Soft, nontender, nondistended, hypoactive bowel sounds, no rebound tenderness, no organomegaly, no masses Genitourinary: Morales seen Neurological: Pupils are isocoric and reactive. Positive pupillary light reflex and corneal reflex, gag and cough positive laboratory and microbiology Laboratory Tests 10/20/24 03:10 Test 10/20/24 03:10 Range/Units Serum Glucose 161 H 74-106 mg/dL Microbiology Date/Time Source Procedure Growth Status 10/17/24 12:05 Blood Blood Culture - Preliminary NO GROWTH AFTER 72 HOURS OF INCUBATION. Resulted 10/16/24 17:40 Urine - Morales Port Urine Culture - Final Escherichia coli Complete 10/16/24 13:47 Nose MRSA Screen - Final Complete 10/16/24 10:20 Sputum Expectorated Sputum Gram Stain - Final Complete 10/16/24 10:20 Respiratory Culture - Final Escherichia coli Klebsiella pneumoniae Proteus mirabilis Complete Labs and/or images reviewed: Labs reviewed by me, Image(s) reviewed by me Problem List/Assessment/Plan Problem List/Assessment/Plan NEURO: Acute metabolic encephalopathy secondary to dementia Advanced dementia Bed-bound status Patient requires assistance feeding, required instructions for swallowing, is bed-bound CARDIOVASCULAR: S Paroxysmal atrial fibrillation with RVR-chads Vasc score 6, now sinus rhythm Chronic heart failure with reduced ejection fraction-EF 40%-NYHA class 3 Septic shock secondary to aspiration pneumonia NSTEMI likely type 2 Dyslipidemia Hypertension Sinus rhythm today, on IV amiodarone protocol, switched to p.o. CHADS-VASc score 6-therapeutic anticoagulation not recommended at this time given comorbidities Continue IV vanc and cefepime Lasix 40 mg once administered today PULMONARY: Acute hypoxic respiratory failure status post intubation, extubated 10/20 Possible aspiration pneumonia Possible gram positive/Gram-negative pneumonia -IV vancomycin and IV cefepime -IV nebulized treatments GASTROINTESTINAL: Hepatitis-C status Transaminitis ? Cirrhosis Liver ultrasound pending Monitor LFTs GENITOURINARY: Acute kidney injury likely secondary to septic shock Acute cystitis Strict I&Os IV vanc and cefepime METABOLIC: Moderate protein calorie malnutrition, albumin Type 2 diabetes mellitus-A1c 8.4 Rbkijfhxxqmt-yttsgmrj-tefm water discontinued Mild ISS Lantus on hold given NPO INFECTIOUS DISEASE: Acute cystitis Septic shock due to aspiration pneumonia Pneumonia Gram-positive and negative Blood culture shows staph hominis, repeat blood culture negative Urine culture shows E coli Respiratory culture shows E coli, Klebsiella, Proteus sensitive to cefepime/meropenem/Zosyn Continue IV vanc and cefepime MUSCULOSKELETAL Left hip hemiarthroplasty 2020 Monitor DIET: Tube feed via NG tube DVT prophylax: Lovenox 40 mg sc daily GI prophylaxis: Protonix Bowel regimen: Lactulose 30 mL daily Code status: Full code LINES/DRAINS/ACCESS: IV access: IJ triple-lumen 10/16 Drips: OFF Morales catheter DISPOSITION: ICU Patient's status discussed with [id number] over the phone in which all questions have been answered Critical care time spent more than 83 minutes, including patient care, chart review, and updating the family including cpap trial and extubation. Excluding any procedures Case discussed with Dr. Licea Plan discussed with: Patient, Daughter ([id number] over the phone) My Orders My Orders Orders - ALI,MARLIN RESIDENT Procedure Category Date Status Time Chest Xray 1 View XY 10/20/24 Resulted 11:53 Kub Abdomen Single XY 10/20/24 Resulted View 14:00 Abg W/ Co-Ox RT 10/20/24 Logged 13:02 Glucose Blood PHA 10/20/24 In Process (Accu-Chek Comfort 18:00 Insulin R (Human) PHA 10/20/24 In Process (Insulin R) 18:00 Dextrose 50% Syringe PHA 10/20/24 In Process 13:45 Lactulose Oral PHA 10/21/24 In Process 10:00 Cpap Trial For Am ORDERS 10/20/24 Transmitted 15:33 Dietary Evaluation Review Recommendations by RD: Increase Calorie Intake Comments: 1) Increase TF regimen to 60 mL/hr goal rate as tolerated. Flush with 250 mL Q6H. Goal rate will provide 1728 kcals, 86g Pro, and 2160 mL free H2O per 24 hrs. Goal rate will meet ~97% estimated energy needs and ~75% estimated protein needs 2) Advance to 60g [facility] cardiac diet when medically feasible, pending ST approval 3) Follow-up with cardiology, pulmonology, and neurology 4) Continue to monitor I&O, labs, and skin integrity Expected Outcomes/Goals: 1) nutrition support to meet at least 75% estimated needs 2) diet to advance 3) labs to improve 4) f/u in 2-3 days Sepsis reassessment post fluid Is the fluid challenge complet: Yes Date of Reassessment: Oct 16, 2024 Time of Reassessment: 1300 Blood Culture Time: 1200 Time Antibiotics Given: 1230 Systolic BP: 134 Diastolic BP: 62 Blood Pressure Mean: 86 Respiration: 16 Respiratory Effort: Non-Labored, Labored Respiratory Pattern: Regular Oxygen Saturation: 99 Pulse Rate: 133 Pulse Location: Radial Pulse Strength: Normal Pulse Assessment Method: Palpation Pulse Rhythm: Regular Capillary Refill: < 3 seconds Heart Sounds: S1 & S2 Breath sounds: Clear Skin Moisture: Dry Skin Tugor: WNL Skin Color: Mottled Date of Service: Oct 20, 2024 Billing Provider: RICK LICEA MD Common Visit Codes: 79416-[id number] CARE 30-74 MIN, 60251-[id number] CARE-EACH +30MIN MARLIN CID Oct 20, 2024 18:10 RICK LICEA MD Oct 21, 2024 15:39
[2024-10-20] MEDS: IPRATROPIUM BROM 0.5 MG/2.5ML INH SOL NEB SCH (18:29)
[2024-10-20] MEDS: LEVALBUTEROL HCL 1.25 MG/3 ML NEB NEB SCH (18:30)
--- NOTE | 2024-10-20 19:55 | DVH ---
ULTRASOUND ABDOMEN, LIMITED RIGHT UPPER QUADRANT: REASON FOR EXAM: hx hep c cirrhosis TECHNIQUE: Real-time sector scans in the transverse and longitudinal planes were obtained through th e right upper quadrant of the abdomen. FINDINGS: Examination was difficult due to patient inability to follow commands and turn. The liver is diffusely echogenic. The liver surface appears nodular, consistent with cirrhosis. Ther e is hepatopetal flow in the portal vein. There is no intrahepatic nor extrahepatic biliary ductal d ilatation. The common bile duct measures 4 mm. There are gallstones and sludge within the gallbladd er. There is no gallbladder wall thickening nor pericholecystic fluid. There is no sonographic Yajaira y's sign. The visualized portion of the pancreas is unremarkable. The right kidney measures 8.7 cm. The left kidney measures 8.5 cm. No hydronephrosis or nephrolithias is is identified. There is no evidence of right renal mass or cyst. The visualized portions of the abdominal aorta demonstrate no evidence of aneurysmal dilatation. The visualized inferior vena cava is unremarkable. There is no free fluid identified in the right upper quadrant. There is trace right pleural effusion. IMPRESSION: Cirrhotic liver morphology. Gallbladder contains stones and sludge. No sonographic quintanilla's sign. Mildly atrophic kidneys.
[2024-10-20] MEDS: CEFEPIME 2GM/50ML NS 50 ML IV SCH (21:34)
[2024-10-21] VITALS (105 sets, daily range): BP systolic 105–155; BP diastolic 44–84; PULSE 71–109; RESP 11–21; TEMP 98.1–98.4; O2SAT 96–100
--- NOTE | 2024-10-21 02:58 | DVH ---
CHEST RADIOGRAPH Indication: Follow up after extubation Technique: 1 view Comparison: XY CHEST PORTABLE on DOS: 10/20/24, XY CHEST XRAY 1 VIEW on DOS: 10/20/24, XY CHEST PORTABL E on DOS: 10/19/24, XY CHEST PORTABLE on DOS: 10/18/24, XY CHEST PORTABLE on DOS: 10/17/24 FINDINGS: Lines and Tubes: Unchanged. Lungs/Pleura: Mild right basilar airspace disease right toe representing atelectasis. No pleural abn ormality. Cardiomediastinum: Unchanged. Other: Unchanged osseous structures. IMPRESSION: 1. Mild right basilar airspace disease likely atelectasis. 2. No other significant change from the previous study. Stable support devices.
[2024-10-21 04:20] LABS: Hematocrit 37.0 % (36.0-46.0); Hemoglobin 12.8 g/dL (12.2-16.2); Mean Corpuscular Hemoglobin 33.4 pg (28.0-32.0); Mean Corpuscular Volume 97.1 fL (80.0-100.0); Nucleated Red Blood Cells % 0.0 %
[2024-10-21 04:49] LABS: Anion Gap 10 (5-15); Carbon Dioxide 26 mmol/L (20-31); Chloride 105 mmol/L (98-107); Sodium 141 mmol/L (136-145)
[2024-10-21 04:52] LABS: BUN/Creatinine Ratio 27.6 (10.0-20.0); Blood Urea Nitrogen 16 mg/dL (9-23); Magnesium 1.9 mg/dL (1.6-2.6); Total Protein 6.4 g/dL (5.7-8.2)
[2024-10-21 04:54] LABS: Bilirubin, Total 0.6 mg/dL (0.2-1.0)
[2024-10-21 05:13] LABS: Alanine Aminotransferase 86 U/L (7-40); Albumin 2.7 g/dL (3.2-4.8); Alkaline Phosphatase 185 U/L (46-116); Calcium 7.9 mg/dL (8.7-10.4); Glucose 161 mg/dL (74-106); Potassium 3.0 mmol/L (3.5-5.1)
[2024-10-21] MEDS: POTASSIUM CHL 20MEQ/100ML 100 ML IV SCH (06:00)
[2024-10-21 07:38] LABS: Base Excess 1.2 mmol/L (-2.0-3.0)
[2024-10-21] MEDS: LACTULOSE 20Gm/30ML SOLN PO SCH (11:40)
[2024-10-21] MEDS: FUROSEMIDE 20 MG/2 ML VIAL IV ONE (18:24)
[2024-10-21] MEDS: FUROSEMIDE 20 MG/2 ML VIAL ONE (18:24)
--- NOTE | 2024-10-21 19:19 | DVHPNRES ---
Progress Note Date Seen: Oct 21, 2024 Resident Creating Document: TOMEKA TOMAS RESIDENT Medical Necessity Reason Pt with a Central, PICC or Fol: Yes The following are medically ne: Central Line, Morales Catheter Subjective Review of Systems This is a 84-year-old Occitan speaking female with dementia, type 2 diabetes mellitus, AFib paroxysmal, hep C status, UTI, heart failure with a reduced ejection fraction-EF 40%, left hip amiodarone versus 2020 who has been in this facility since 10/16 for sepsis with aspiration pneumonia status post intubation, extubated 10/20. Patient was seen and examined on the ICU. She is alert and oriented X 0 and on nasal cannula 3 L. Overnight there was an episode of AFib with RVR, right now patient is on sinus rhythm with controlled heart rate, continue IV amiodarone at 0.5. spoke with the patient's [id number] regarding goals of care and discussed about hospice. Tomorrow they will make decision regarding goal of care. Objective vital signs Vital Sign Date Time Temp Pulse Resp B/P (MAP) Pulse Ox O2 Delivery O2 Flow Rate FiO2 10/21/24 18:24 139/84 10/21/24 18:19 99 Nasal Cannula* 2 28 10/21/24 18:19 103 16 10/21/24 12:30 98.1 98.1 Total Intake and Output 10/20/24 10/20/24 10/21/24 15:00 23:00 07:00 Intake Total 383.28 ml 193.28 ml 717.62 ml Output Total 1250 ml 750 ml Balance 383.28 ml -1056.72 ml -32.38 ml medications Current Medications Medications Dose Ordered Sig/Bryon Route Start Time Stop Time Status Last Admin Dose Admin Sodium Chloride 10 ml Q8HR IV 10/16/24 14:00 10/21/24 15:48 10 ML Docusate Sodium 100 mg BIDPRN PRN PO 10/16/24 12:15 Acetaminophen 650 mg Q6HP PRN PO 10/16/24 12:15 Enoxaparin Sodium 40 mg DAILY SC 10/17/24 10:00 10/21/24 11:40 40 MG Pantoprazole Sodium 40 mg DAILY IV 10/17/24 10:00 10/21/24 11:40 40 MG Enteral Nutritional Formula 1,000 ml 30ML/HR GT 10/17/24 09:15 10/19/24 21:56 1,000 ML Vancomycin HCl 0 ml @ 0 mls/hr UD IV 10/17/24 09:15 Amiodarone HCL/ Dextrose 200 ml @ 16.66 mls/ hr Q12H IV 10/19/24 22:30 10/21/24 11:30 16.66 MLS/HR Vancomycin HCl 250 ml @ 250 mls/hr Q12H IV 10/20/24 13:00 10/21/24 15:48 250 MLS/HR Diagnostic Test (Pha) 1 strip Q6HR 10/20/24 18:00 10/21/24 18:07 1 STRIP Insulin Human Regular Q6HR SC 10/20/24 18:00 10/21/24 18:20 2 UNITS Dextrose 50 ml UD PRN IV 10/20/24 13:45 Lactulose 30 ml DAILY PO 10/21/24 10:00 10/21/24 11:40 30 ML Cefepime HCl 50 ml @ 12.5 mls/hr Q12HR IV 10/20/24 22:00 10/21/24 11:40 12.5 MLS/HR Levalbuterol HCl 0.625 mg Q4H NEB 10/20/24 22:00 10/21/24 18:19 0.625 MG Ipratropium [place] 0.5 mg Q4HR NEB 10/20/24 18:30 10/21/24 18:19 0.5 MG Examination Physical examination: General Appearance: Alert, Oriented X0, No acute distress HEENT: Atraumatic, PERRLA, EOMI, Mucous membrane moist/pink Respiratory: Clear to auscultation, Normal air movement Cardiovascular: Regular rate, Normal S1, Normal S2, No murmurs, no chest wall tenderness Abdominal: Normal bowel sounds, Soft, No tenderness, No hepatospenomegaly, No masses Extremities: No clubbing, No cyanosis, bilateral pedal edema 1+, Normal pulses, No tenderness/swelling Skin: No rashes, No breakdown, No significant lesion Neuro: Strength at 4/5 X4 ext, Normal tone, Sensation intact, Cranial nerves 3- 12 NL, Reflexes 2+ Psych/Mental Status: Could not be assessed laboratory and microbiology Laboratory Tests 10/21/24 16:15 10/21/24 03:50 Test 10/21/24 03:50 Range/Units Serum Glucose 161 H 74-106 mg/dL Microbiology Date/Time Source Procedure Growth Status 10/17/24 12:05 Blood Blood Culture - Preliminary NO GROWTH AFTER 72 HOURS OF INCUBATION. Resulted 10/16/24 17:40 Urine - Morales Port Urine Culture - Final Escherichia coli Complete 10/16/24 13:47 Nose MRSA Screen - Final Complete 10/16/24 10:20 Sputum Expectorated Sputum Gram Stain - Final Complete 10/16/24 10:20 Respiratory Culture - Final Escherichia coli Klebsiella pneumoniae Proteus mirabilis Complete Labs and/or images reviewed: Labs reviewed by me, Image(s) reviewed by me Problem List/Assessment/Plan Problem List/Assessment/Plan Assessment and Plan: NEURO: Acute metabolic encephalopathy Advanced dementia Bed-bound status Patient requires assistance feeding, required instructions for swallowing, is bed-bound CARDIOVASCULAR: Paroxysmal atrial fibrillation with RVR-chads Vasc score 6, now sinus rhythm Chronic systolic heart failure with reduced ejection fraction-EF 40%-NYHA class 3 Septic shock secondary to aspiration pneumonia NSTEMI likely type 2 Dyslipidemia Hypertension - Sinus rhythm today, on IV amiodarone protocol - CHADS-VASc score 6-therapeutic anticoagulation not recommended at this time given comorbidities - Continue IV vanc and cefepime - Lasix 20 mg once administered today PULMONARY: Acute hypoxic respiratory failure status post intubation, extubated 10/20 Possible aspiration pneumonia Possible gram positive/Gram-negative pneumonia - IV vancomycin and IV cefepime - med neb with levalbuterol and ipratropium GASTROINTESTINAL: Hepatitis-C status Transaminitis 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 - Monitor LFTs GENITOURINARY: Acute kidney injury likely secondary to septic shock resolved Acute complicated cystitis - Strict I&Os - IV vanc and cefepime METABOLIC: Moderate protein calorie malnutrition, albumin Type 2 diabetes mellitus-A1c 8.4 Invjvqlwpjcj-ravtisjz-jqaf water discontinued - Mild ISS - Lantus on hold blood sugar is on the lower range INFECTIOUS DISEASE: Acute complicated cystitis Septic shock due to aspiration pneumonia Pneumonia Gram-positive and negative - Blood culture shows staph hominis, repeat blood culture negative - Urine culture shows E coli - Respiratory culture shows E coli, Klebsiella, Proteus sensitive to cefepime/meropenem/Zosyn - Continue IV vanc and cefepime MUSCULOSKELETAL: Left hip hemiarthroplasty 2020 DIET: Tube feed via NG tube DVT prophylax: Lovenox 40 mg sc daily GI prophylaxis: Protonix Bowel regimen: Lactulose 30 mL daily Code status: Full code LINES/DRAINS/ACCESS: IV access: IJ triple-lumen 10/16 Drips: OFF Morales catheter DISPOSITION: ICU Patient's status discussed with [id number] over the phone in which all questions have been answered Critical care time spent more than 83 minutes, including patient care, chart review, and updating the family. Case discussed with Dr. Licea Plan discussed with: Son (Atsuxung-uh-era over the phone) Plan discussed with: Son, Other (RN) Dietary Evaluation Review Recommendations by RD: Increase Calorie Intake Comments: 1) Increase TF regimen to 60 mL/hr goal rate as tolerated. Flush with 250 mL Q6H. Goal rate will provide 1728 kcals, 86g Pro, and 2160 mL free H2O per 24 hrs. Goal rate will meet ~97% estimated energy needs and ~75% estimated protein needs 2) Advance to 60g CCHO cardiac diet when medically feasible, pending ST approval 3) Follow-up with cardiology, pulmonology, and neurology 4) Continue to monitor I&O, labs, and skin integrity Expected Outcomes/Goals: 1) nutrition support to meet at least 75% estimated needs 2) diet to advance 3) labs to improve 4) f/u in 2-3 days Sepsis reassessment post fluid Is the fluid challenge complet: Yes Date of Reassessment: Oct 16, 2024 Time of Reassessment: 1300 Blood Culture Time: 1200 Time Antibiotics Given: 1230 Systolic BP: 134 Diastolic BP: 62 Blood Pressure Mean: 86 Respiration: 16 Respiratory Effort: Non-Labored, Labored Respiratory Pattern: Regular Oxygen Saturation: 99 Pulse Rate: 133 Pulse Location: Radial Pulse Strength: Normal Pulse Assessment Method: Palpation Pulse Rhythm: Regular Capillary Refill: < 3 seconds Heart Sounds: S1 & S2 Breath sounds: Clear Skin Moisture: Dry Skin Tugor: WNL Skin Color: Mottled Date of Service: Oct 21, 2024 Billing Provider: RICK LICEA MD Common Visit Codes: [id number] CARE 30-74 MIN, 81989-[id number] CARE-EACH +30MIN TOMEKA TOMAS Oct 21, 2024 19:19 RICK LICEA MD Oct 22, 2024 15:46
[2024-10-22] VITALS (74 sets, daily range): BP systolic 112–160; BP diastolic 56–85; PULSE 80–102; RESP 11–22; TEMP 97.3–98.6; O2SAT 96–100
[2024-10-22 04:11] LABS: Hematocrit 37.5 % (36.0-46.0); Hemoglobin 12.8 g/dL (12.2-16.2); Mean Corpuscular Hemoglobin 33.4 pg (28.0-32.0); Mean Corpuscular Volume 97.7 fL (80.0-100.0); Nucleated Red Blood Cells % 0.0 %
[2024-10-22 04:29] LABS: Chloride 106 mmol/L (98-107); Potassium 3.6 mmol/L (3.5-5.1); Sodium 141 mmol/L (136-145)
[2024-10-22 04:30] LABS: Anion Gap 9 (5-15); Carbon Dioxide 26 mmol/L (20-31)
[2024-10-22 04:35] LABS: BUN/Creatinine Ratio 22.8 (10.0-20.0); Blood Urea Nitrogen 13 mg/dL (9-23)
[2024-10-22 04:39] LABS: Calcium 8.2 mg/dL (8.7-10.4); Glucose 135 mg/dL (74-106)
--- NOTE | 2024-10-22 05:12 | DVH ---
CHEST RADIOGRAPH Indication: Status post extubation Technique: Single frontal view of the chest was obtained Comparison: XY CHEST XRAY 1 VIEW on DOS: 10/21/24 FINDINGS: Lines and Tubes: There is a right central venous catheter with its tip terminating in the superior ve na cava. The enteric tube passes below the left hemidiaphragm and the tip extends outside the field o f view. Lungs: Right basilar opacities are unchanged. Trace left basilar opacities. Pleura: No effusion. No pneumothorax. Cardiomediastinal contours: Unremarkable Bones: No acute osseous abnormality. IMPRESSION: 1. Bibasilar opacities which may reflect atelectasis. 2. Stable position of the support lines and tubes.
[2024-10-22] MEDS: AMIODARONE HCL 200 MG TAB PO SCH (10:26)
--- NOTE | 2024-10-22 16:48 | DVHPNRES ---
Progress Note Date Seen: Oct 22, 2024 Resident Creating Document: TOMEKA TOMAS RESIDENT Medical Necessity Reason Pt with a Central, PICC or Fol: Yes The following are medically ne: Central Line, Morales Catheter Subjective Review of Systems This is a 84-year-old Swedish speaking female with dementia, type 2 diabetes mellitus, AFib paroxysmal, hep C status, UTI, heart failure with a reduced ejection fraction-EF 40%, left hip amiodarone versus 2020 who has been in this facility since 10/16 for sepsis with aspiration pneumonia status post intubation, extubated 10/20. Patient was seen and examined on the ICU. She is alert and oriented X 0 and on nasal cannula 2 L. No overnight events . Family meeting regarding goal of care and hospice with the patient's [id number] scheduled today. Objective vital signs Vital Sign Date Time Temp Pulse Resp B/P (MAP) Pulse Ox O2 Delivery O2 Flow Rate FiO2 10/22/24 14:27 97 14 100 10/22/24 13:00 160/70 (100) 10/22/24 10:40 30 10/22/24 06:12 Nasal Cannula* 2 10/22/24 05:15 98.6 98.6 Total Intake and Output 10/21/24 10/21/24 10/22/24 15:00 23:00 07:00 Intake Total 133.28 ml 1133.28 ml 498.28 ml Output Total 350 ml 1325 ml Balance 133.28 ml 783.28 ml -826.72 ml medications Current Medications Medications Dose Ordered Sig/Bryon Route Start Time Stop Time Status Last Admin Dose Admin Sodium Chloride 10 ml Q8HR IV 10/16/24 14:00 10/22/24 05:21 10 ML Docusate Sodium 100 mg BIDPRN PRN PO 10/16/24 12:15 Acetaminophen 650 mg Q6HP PRN PO 10/16/24 12:15 Enoxaparin Sodium 40 mg DAILY SC 10/17/24 10:00 10/22/24 09:00 40 MG Pantoprazole Sodium 40 mg DAILY IV 10/17/24 10:00 10/22/24 09:00 40 MG Enteral Nutritional Formula 1,000 ml 30ML/HR GT 10/17/24 09:15 10/22/24 01:53 1,000 ML Vancomycin HCl 0 ml @ 0 mls/hr UD IV 10/17/24 09:15 Diagnostic Test (Pha) 1 strip Q6HR 10/20/24 18:00 10/22/24 12:04 1 STRIP Insulin Human Regular Q6HR SC 10/20/24 18:00 10/22/24 12:10 3 UNITS Dextrose 50 ml UD PRN IV 10/20/24 13:45 Cefepime HCl 50 ml @ 12.5 mls/hr Q12HR IV 10/20/24 22:00 10/22/24 09:00 12.5 MLS/HR Levalbuterol HCl 0.625 mg Q4H NEB 10/20/24 22:00 10/22/24 14:27 0.625 MG Ipratropium [place] 0.5 mg Q4HR NEB 10/20/24 18:30 10/22/24 14:27 0.5 MG Amiodarone HCl 200 mg Q12HR PO 10/22/24 10:00 10/22/24 10:26 200 MG Examination Physical examination: General Appearance: Alert, Oriented X0, No acute distress HEENT: Atraumatic, PERRLA, EOMI, Mucous membrane moist/pink Respiratory: Clear to auscultation, Normal air movement Cardiovascular: Regular rate, Normal S1, Normal S2, No murmurs, no chest wall tenderness Abdominal: Normal bowel sounds, Soft, No tenderness, No hepatospenomegaly, No masses Extremities: No clubbing, No cyanosis, bilateral pedal edema 1+, Normal pulses, No tenderness/swelling Skin: No rashes, No breakdown, No significant lesion Neuro: Strength at 4/5 X4 ext, Normal tone, Sensation intact, Cranial nerves 3- 12 NL, Reflexes 2+ Psych/Mental Status: Could not be assessed laboratory and microbiology Laboratory Tests 10/22/24 03:47 Test 10/22/24 03:47 Range/Units Serum Glucose 135 H 74-106 mg/dL Microbiology Date/Time Source Procedure Growth Status 10/17/24 12:05 Blood Blood Culture - Final NO GROWTH AFTER 5 DAYS OF INCUBATION. Complete 10/16/24 17:40 Urine - Morales Port Urine Culture - Final Escherichia coli Complete 10/16/24 13:47 Nose MRSA Screen - Final Complete 10/16/24 10:20 Sputum Expectorated Sputum Gram Stain - Final Complete 10/16/24 10:20 Respiratory Culture - Final Escherichia coli Klebsiella pneumoniae Proteus mirabilis Complete Labs and/or images reviewed: Labs reviewed by me, Image(s) reviewed by me Problem List/Assessment/Plan Problem List/Assessment/Plan Assessment and Plan: NEURO: Acute metabolic encephalopathy Advanced dementia Bed-bound status Patient requires assistance feeding, required instructions for swallowing, and bed-bound CARDIOVASCULAR: Paroxysmal atrial fibrillation with RVR-chads Vasc score 6, now sinus rhythm Chronic systolic heart failure with reduced ejection fraction-EF 40%-NYHA class 3 Septic shock secondary to aspiration pneumonia NSTEMI likely type 2 Dyslipidemia Hypertension - Sinus rhythm today - Amiodarone 200 mg po bid - CHADS-VASc score 6-therapeutic anticoagulation not recommended at this time given comorbidities - Continue IV vanc and cefepime PULMONARY: Acute hypoxic respiratory failure status post intubation, extubated 10/20 Possible aspiration pneumonia Possible gram positive/Gram-negative pneumonia - IV vancomycin and IV cefepime - med neb with levalbuterol and ipratropium GASTROINTESTINAL: Hepatitis-C status Transaminitis 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 - Monitor LFTs GENITOURINARY: Acute kidney injury likely secondary to septic shock resolved Acute complicated cystitis - Strict I&Os - IV vanc and cefepime METABOLIC: Moderate protein calorie malnutrition, albumin Type 2 diabetes mellitus-A1c 8.4 Hyponatremia-resolved - Mild ISS - Lantus on hold blood sugar is on the lower range INFECTIOUS DISEASE: Acute complicated cystitis Septic shock due to aspiration pneumonia Pneumonia Gram-positive and negative - Blood culture shows staph hominis, repeat blood culture negative - Urine culture shows E coli - Respiratory culture shows E coli, Klebsiella, Proteus sensitive to cefepime/meropenem/Zosyn - Continue IV vanc and cefepime MUSCULOSKELETAL: Left hip hemiarthroplasty 2020 DIET: Tube feed via NG tube DVT prophylax: Lovenox 40 mg sc daily GI prophylaxis: Protonix Bowel regimen: Hold due to diarrhoea Code status: Full code LINES/DRAINS/ACCESS: IV access: Peripheral line Drips: OFF Morales catheter DISPOSITION: ICU Critical care time spent more than 61 minutes, including patient care, chart review, and updating the family. Case discussed with Dr. Licea Plan discussed with: Son, daughter in law Plan discussed with: Other (RN) My Orders My Orders Orders - TOMEKA TOMAS RESIDENT Procedure Category Date Status Time Chest Portable XY 10/22/24 Resulted 04:00 Amiodarone Tablet PHA 10/22/24 In Process (Cordarone Tablet) 10:00 Dietary Evaluation Review Recommendations by RD: Increase Calorie Intake Comments: 1) Increase TF regimen to 60 mL/hr goal rate as tolerated. Flush with 250 mL Q6H. Goal rate will provide 1728 kcals, 86g Pro, and 2160 mL free H2O per 24 hrs. Goal rate will meet ~97% estimated energy needs and ~75% estimated protein needs 2) [facility] when medically feasible, pending ST approval 3) Follow-up with cardiology, pulmonology, and neurology 4) Continue to monitor I&O, labs, and skin integrity Expected Outcomes/Goals: 1) nutrition support to meet at least 75% estimated needs 2) diet to advance 3) labs to improve 4) f/u in 2-3 days Sepsis reassessment post fluid Is the fluid challenge complet: Yes Date of Reassessment: Oct 16, 2024 Time of Reassessment: 1300 Blood Culture Time: 1200 Time Antibiotics Given: 1230 Systolic BP: 134 Diastolic BP: 62 Blood Pressure Mean: 86 Respiration: 16 Respiratory Effort: Non-Labored, Labored Respiratory Pattern: Regular Oxygen Saturation: 99 Pulse Rate: 133 Pulse Location: Radial Pulse Strength: Normal Pulse Assessment Method: Palpation Pulse Rhythm: Regular Capillary Refill: < 3 seconds Heart Sounds: S1 & S2 Breath sounds: Clear Skin Moisture: Dry Skin Tugor: WNL Skin Color: Mottled Date of Service: Oct 22, 2024 Billing Provider: RICK LICEA MD Common Visit Codes: [id number] CARE 30-74 MIN TOMEKA TOMAS RESIDENT Oct 22, 2024 16:47 RICK LICEA MD Oct 23, 2024 11:49
[2024-10-23] VITALS (54 sets, daily range): BP systolic 130–176; BP diastolic 61–104; PULSE 78–116; RESP 11–29; TEMP 97.7–98.5; O2SAT 95–100
[2024-10-23 03:51] LABS: Chloride 106 mmol/L (98-107); Hematocrit 37.8 % (36.0-46.0); Hemoglobin 12.9 g/dL (12.2-16.2); Mean Corpuscular Hemoglobin 33.7 pg (28.0-32.0); Mean Corpuscular Volume 98.3 fL (80.0-100.0); Nucleated Red Blood Cells % 0.4 %; Potassium 3.7 mmol/L (3.5-5.1); Sodium 141 mmol/L (136-145)
[2024-10-23 03:52] LABS: Anion Gap 7 (5-15); Carbon Dioxide 28 mmol/L (20-31)
[2024-10-23 03:56] LABS: Calcium 8.1 mg/dL (8.7-10.4)
[2024-10-23 03:57] LABS: BUN/Creatinine Ratio 23.6 (10.0-20.0); Blood Urea Nitrogen 13 mg/dL (9-23)
[2024-10-23 04:15] LABS: Glucose 140 mg/dL (74-106)
[2024-10-23] MEDS: LOSARTAN POTASSIUM 50 MG TAB PO SCH (09:28)
[2024-10-23] MEDS: VANCOMYCIN 1GM/250ML KIT 250 ML IV SCH (13:00)
--- NOTE | 2024-10-23 13:40 | DVHPNRES ---
Progress Note Date Seen: Oct 23, 2024 Resident Creating Document: TOMEKA TOMAS RESIDENT Medical Necessity Reason Pt with a Central, PICC or Fol: Yes The following are medically ne: Central Line, Morales Catheter Subjective Review of Systems This is a 84-year-old Greek speaking female with dementia, type 2 diabetes mellitus, AFib paroxysmal, hep C status, UTI, heart failure with a reduced ejection fraction-EF 40%, left hip amiodarone versus 2020 who has been in this facility since 10/16 for sepsis with aspiration pneumonia status post intubation, extubated 10/20. Patient was seen and examined on the ICU. She is alert and oriented X 0 and on nasal cannula 2 L. No overnight events . Family wanted hospice facility for the patient and consistent at social worker psychiatric for working on hospice placement. Downgraded to telemetry Objective vital signs Vital Sign Date Time Temp Pulse Resp B/P (MAP) Pulse Ox O2 Delivery O2 Flow Rate FiO2 10/23/24 13:00 93 15 156/77 (103) 100 10/23/24 12:00 Nasal Cannula* 2 28 10/23/24 12:00 98.0 98.0 Total Intake and Output 10/22/24 10/22/24 10/23/24 15:00 23:00 07:00 Intake Total 83.30 ml 418 ml 327 ml Output Total 275 ml 350 ml Balance 83.30 ml 143 ml -23 ml medications Current Medications Medications Dose Ordered Sig/Bryon Route Start Time Stop Time Status Last Admin Dose Admin Sodium Chloride 10 ml Q8HR IV 10/16/24 14:00 10/23/24 09:27 10 ML Docusate Sodium 100 mg BIDPRN PRN PO 10/16/24 12:15 Acetaminophen 650 mg Q6HP PRN PO 10/16/24 12:15 Enoxaparin Sodium 40 mg DAILY SC 10/17/24 10:00 10/23/24 09:28 40 MG Pantoprazole Sodium 40 mg DAILY IV 10/17/24 10:00 10/23/24 09:27 40 MG Enteral Nutritional Formula 1,000 ml 30ML/HR GT 10/17/24 09:15 10/22/24 01:53 1,000 ML Diagnostic Test (Pha) 1 strip Q6HR 10/20/24 18:00 10/23/24 11:28 1 STRIP Insulin Human Regular Q6HR SC 10/20/24 18:00 10/23/24 11:32 3 UNITS Dextrose 50 ml UD PRN IV 10/20/24 13:45 Cefepime HCl 50 ml @ 12.5 mls/hr Q12HR IV 10/20/24 22:00 10/23/24 09:27 12.5 MLS/HR Levalbuterol HCl 0.625 mg Q4H NEB 10/20/24 22:00 10/23/24 06:11 0.625 MG Ipratropium [place] 0.5 mg Q4HR NEB 10/20/24 18:30 10/23/24 06:11 0.5 MG Amiodarone HCl 200 mg Q12HR PO 10/22/24 10:00 10/23/24 09:28 200 MG Losartan Potassium 50 mg DAILY PO 10/23/24 10:00 10/23/24 09:28 50 MG Hydralazine HCl 10 mg Q6HP PRN IV 10/23/24 07:00 Examination Physical examination: General Appearance: Alert, Oriented X0, No acute distress HEENT: Atraumatic, PERRLA, EOMI, Mucous membrane moist/pink Respiratory: Clear to auscultation, Normal air movement Cardiovascular: Regular rate, Normal S1, Normal S2, No murmurs, no chest wall tenderness Abdominal: Normal bowel sounds, Soft, No tenderness, No hepatospenomegaly, No masses Extremities: No clubbing, No cyanosis, bilateral pedal edema 1+, Normal pulses, No tenderness/swelling Skin: No rashes, No breakdown, No significant lesion Neuro: Strength at 4/5 X4 ext, Normal tone, Sensation intact, Cranial nerves 3- 12 NL, Reflexes 2+ Psych/Mental Status: Could not be assessed laboratory and microbiology Laboratory Tests 10/23/24 02:56 Test 10/23/24 02:56 Range/Units Serum Glucose 140 H 74-106 mg/dL Microbiology Date/Time Source Procedure Growth Status 10/17/24 12:05 Blood Blood Culture - Final NO GROWTH AFTER 5 DAYS OF INCUBATION. Complete 10/16/24 17:40 Urine - [place]ales [place] Urine Culture - Final Escherichia coli Complete 10/16/24 13:47 Nose MRSA Screen - Final Complete 10/16/24 10:20 Sputum Expectorated Sputum Gram Stain - Final Complete 10/16/24 10:20 Respiratory Culture - Final Escherichia coli Klebsiella pneumoniae Proteus mirabilis Complete Labs and/or images reviewed: Labs reviewed by me, Image(s) reviewed by me Problem List/Assessment/Plan Problem List/Assessment/Plan Assessment and Plan: NEURO: Acute metabolic encephalopathy Advanced dementia Bed-bound status Patient requires assistance feeding, required instructions for swallowing, and bed-bound CARDIOVASCULAR: Paroxysmal atrial fibrillation with RVR-chads Vasc score 6, now sinus rhythm Chronic systolic heart failure with reduced ejection fraction-EF 40%-NYHA class 3 Septic shock secondary to aspiration pneumonia NSTEMI likely type 2 Dyslipidemia Hypertension - Sinus rhythm today - Amiodarone 200 mg po bid - CHADS-VASc score 6-therapeutic anticoagulation not recommended at this time given comorbidities - Continue IV cefepime PULMONARY: Acute hypoxic respiratory failure status post intubation, extubated 10/20 Possible aspiration pneumonia Possible gram positive/Gram-negative pneumonia - IV vancomycin and IV cefepime - med neb with levalbuterol and ipratropium GASTROINTESTINAL: Hepatitis-C status Transaminitis 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 - Monitor LFTs GENITOURINARY: Acute kidney injury likely secondary to septic shock resolved Acute complicated cystitis - Strict I&Os - IV vanc and cefepime METABOLIC: Moderate protein calorie malnutrition, albumin Type 2 diabetes mellitus-A1c 8.4 Hyponatremia-resolved - Mild ISS - Lantus on hold blood sugar is on the lower range INFECTIOUS DISEASE: Acute complicated cystitis Septic shock due to aspiration pneumonia Pneumonia Gram-positive and negative - Blood culture shows staph hominis, repeat blood culture negative - Urine culture shows E coli - Respiratory culture shows E coli, Klebsiella, Proteus sensitive to cefepime/meropenem/Zosyn - Continue IV cefepime MUSCULOSKELETAL: Left hip hemiarthroplasty 2020 DIET: Tube feed via NG tube DVT prophylax: Lovenox 40 mg sc daily GI prophylaxis: Protonix Bowel regimen: Hold due to diarrhoea Code status: Full code LINES/DRAINS/ACCESS: IV access: Peripheral line Drips: OFF Morales catheter DISPOSITION: Telemetry Critical care time spent more than 63 minutes, including patient care, chart review, and updating the family. Case discussed with Dr. Licea Plan discussed with: Son, daughter in law Plan discussed with: Other (RN) My Orders My Orders Orders - TOMEKA TOMAS RESIDENT Procedure Category Date Status Time * Pediatric Clinical Nurse Specialist CONS 10/23/24 Transmitted Consult Transfer Orders XFER 10/23/24 Transmitted 06:46 Losartan Tablet PHA 10/23/24 In Process (Cozaar Tablet) 10:00 Hydralazine Injection PHA 10/23/24 In Process (Apresoline Inject 07:00 Insert Midline ORDERS 10/23/24 Transmitted 09:20 * Pediatric Clinical Nurse Specialist CONS 10/23/24 Transmitted Consult Transfer Orders XFER 10/23/24 Transmitted 13:30 Dietary Evaluation Review Recommendations by RD: Increase Calorie Intake Comments: 1) Increase TF regimen to 60 mL/hr goal rate as tolerated. Flush with 250 mL Q6H. Goal rate will provide 1728 kcals, 86g Pro, and 2160 mL free H2O per 24 hrs. Goal rate will meet ~97% estimated energy needs and ~75% estimated protein needs 2) Advance to 60g CCHO cardiac diet when medically feasible, pending ST approval 3) Follow-up with cardiology, pulmonology, and neurology 4) Continue to monitor I&O, labs, and skin integrity Expected Outcomes/Goals: 1) nutrition support to meet at least 75% estimated needs 2) diet to advance 3) labs to improve 4) f/u in 2-3 days Sepsis reassessment post fluid Is the fluid challenge complet: Yes Date of Reassessment: Oct 16, 2024 Time of Reassessment: 1300 Blood Culture Time: 1200 Time Antibiotics Given: 1230 Systolic BP: 134 Diastolic BP: 62 Blood Pressure Mean: 86 Respiration: 16 Respiratory Effort: Non-Labored, Labored Respiratory Pattern: Regular Oxygen Saturation: 99 Pulse Rate: 133 Pulse Location: Radial Pulse Strength: Normal Pulse Assessment Method: Palpation Pulse Rhythm: Regular Capillary Refill: < 3 seconds Heart Sounds: S1 & S2 Breath sounds: Clear Skin Moisture: Dry Skin Tugor: WNL Skin Color: Mottled Date of Service: Oct 23, 2024 Billing Provider: RCIK LICEA MD Common Visit Codes: [id number] CARE 30-74 MIN TOMEKA TOMAS RESIDENT Oct 23, 2024 13:40 RICK LICEA MD Oct 27, 2024 15:44
[2024-10-23] MEDS: hydrALAZINE HCL 20 MG/ML VL IV PRN (22:01)
[2024-10-24] VITALS (19 sets, daily range): BP systolic 118–138; BP diastolic 71–81; PULSE 16–127; RESP 16–94; TEMP 97.7–99; O2SAT 94–100
[2024-10-24 06:56] LABS: Hematocrit 39.0 % (36.0-46.0); Hemoglobin 13.2 g/dL (12.2-16.2); Mean Corpuscular Hemoglobin 34.0 pg (28.0-32.0); Mean Corpuscular Volume 100.6 fL (80.0-100.0); Nucleated Red Blood Cells % 0.1 %
[2024-10-24 06:57] LABS: Anion Gap 6 (5-15); Carbon Dioxide 30 mmol/L (20-31); Chloride 105 mmol/L (98-107); Potassium 3.9 mmol/L (3.5-5.1); Sodium 141 mmol/L (136-145)
[2024-10-24 07:03] LABS: BUN/Creatinine Ratio 21.8 (10.0-20.0); Blood Urea Nitrogen 12 mg/dL (9-23)
[2024-10-24 07:08] LABS: Calcium 8.4 mg/dL (8.7-10.4); Glucose 187 mg/dL (74-106)
--- NOTE | 2024-10-24 18:24 | DVHPNRES ---
Progress Note Date Seen: Oct 24, 2024 Resident Creating Document: TOMEKA TOMAS RESIDENT Medical Necessity Reason Pt with a Central, PICC or Fol: Yes The following are medically ne: Central Line, Morales Catheter Subjective Review of Systems This is a 84-year-old Slovenian speaking female with dementia, type 2 diabetes mellitus, AFib paroxysmal, hep C status, UTI, heart failure with a reduced ejection fraction-EF 40%, left hip amiodarone versus 2020 who has been in this facility since 10/16 for sepsis with aspiration pneumonia status post intubation, extubated 10/20. Patient was seen and examined on the ICU. She is alert and oriented X 0 and on nasal cannula 2 L. No overnight events . Family wanted hospice facility for the patient and consistent at social director for working on hospice placement. Patient is waiting for hospice placement. Objective vital signs Vital Sign Date Time Temp Pulse Resp B/P (MAP) Pulse Ox O2 Delivery O2 Flow Rate FiO2 10/24/24 17:00 99.0 110 16 123/71 (88) 100 99.0 10/24/24 08:00 Nasal Cannula* 2 28 Total Intake and Output 10/23/24 10/23/24 10/24/24 14:59 22:59 06:59 Intake Total 50 ml 425 ml 132 ml Output Total 950 ml 610 ml Balance 50 ml -525 ml -478 ml medications Current Medications Medications Dose Ordered Sig/Bryon Route Start Time Stop Time Status Last Admin Dose Admin Sodium Chloride 10 ml Q8HR IV 10/16/24 14:00 10/24/24 13:43 10 ML Docusate Sodium 100 mg BIDPRN PRN PO 10/16/24 12:15 Acetaminophen 650 mg Q6HP PRN PO 10/16/24 12:15 Enoxaparin Sodium 40 mg DAILY SC 10/17/24 10:00 10/24/24 10:08 40 MG Pantoprazole Sodium 40 mg DAILY IV 10/17/24 10:00 10/24/24 10:08 40 MG Enteral Nutritional Formula 1,000 ml 30ML/HR GT 10/17/24 09:15 10/22/24 01:53 1,000 ML Diagnostic Test (Pha) 1 strip Q6HR 10/20/24 18:00 10/24/24 18:03 1 STRIP Insulin Human Regular Q6HR SC 10/20/24 18:00 10/24/24 18:03 3 UNITS Dextrose 50 ml UD PRN IV 10/20/24 13:45 Cefepime HCl 50 ml @ 12.5 mls/hr Q12HR IV 10/20/24 22:00 10/24/24 10:08 12.5 MLS/HR Levalbuterol HCl 0.625 mg Q4H NEB 10/20/24 22:00 10/24/24 14:31 0.625 MG Ipratropium [place] 0.5 mg Q4HR NEB 10/20/24 18:30 10/24/24 14:31 0.5 MG Amiodarone HCl 200 mg Q12HR PO 10/22/24 10:00 10/23/24 22:03 200 MG Losartan Potassium 50 mg DAILY PO 10/23/24 10:00 10/23/24 09:28 50 MG Hydralazine HCl 10 mg Q6HP PRN IV 10/23/24 07:00 10/23/24 22:01 10 MG Examination Physical examination: General Appearance: Alert, Oriented X0, No acute distress HEENT: Atraumatic, PERRLA, EOMI, Mucous membrane moist/pink Respiratory: Clear to auscultation, Normal air movement Cardiovascular: Regular rate, Normal S1, Normal S2, No murmurs, no chest wall tenderness Abdominal: Normal bowel sounds, Soft, No tenderness, No hepatospenomegaly, No masses Extremities: No clubbing, No cyanosis, bilateral pedal edema 1+, Normal pulses, No tenderness/swelling Skin: No rashes, No breakdown, No significant lesion Neuro: Strength at 4/5 X4 ext, Normal tone, Sensation intact, Cranial nerves 3- 12 NL, Reflexes 2+ Psych/Mental Status: Could not be assessed laboratory and microbiology Laboratory Tests 10/24/24 05:41 Test 10/24/24 05:41 Range/Units Serum Glucose 187 H 74-106 mg/dL Microbiology Date/Time Source Procedure Growth Status 10/17/24 12:05 Blood Blood Culture - Final NO GROWTH AFTER 5 DAYS OF INCUBATION. Complete 10/16/24 17:40 Urine - [place]ales [place] Urine Culture - Final Escherichia coli Complete 10/16/24 13:47 Nose MRSA Screen - Final Complete 10/16/24 10:20 Sputum Expectorated Sputum Gram Stain - Final Complete 10/16/24 10:20 Respiratory Culture - Final Escherichia coli Klebsiella pneumoniae Proteus mirabilis Complete Labs and/or images reviewed: Labs reviewed by me, Image(s) reviewed by me Problem List/Assessment/Plan Problem List/Assessment/Plan Assessment and Plan: NEURO: Acute metabolic encephalopathy Advanced dementia Bed-bound status Patient requires assistance feeding, required instructions for swallowing, and bed-bound CARDIOVASCULAR: Paroxysmal atrial fibrillation with RVR-chads Vasc score 6, now sinus rhythm Chronic systolic heart failure with reduced ejection fraction-EF 40%-NYHA class 3 Septic shock secondary to aspiration pneumonia NSTEMI likely type 2 Dyslipidemia Hypertension - Sinus rhythm today - Amiodarone 200 mg po bid - CHADS-VASc score 6-therapeutic anticoagulation not recommended at this time given comorbidities - Continue IV cefepime PULMONARY: Acute hypoxic respiratory failure status post intubation, extubated 10/20 Possible aspiration pneumonia Possible gram positive/Gram-negative pneumonia - IV vancomycin and IV cefepime - med neb with levalbuterol and ipratropium GASTROINTESTINAL: Hepatitis-C status Transaminitis 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 - Monitor LFTs GENITOURINARY: Acute kidney injury likely secondary to septic shock resolved Acute complicated cystitis - Strict I&Os - IV vanc and cefepime METABOLIC: Moderate protein calorie malnutrition, albumin Type 2 diabetes mellitus-A1c 8.4 Hyponatremia-resolved - Mild ISS - Lantus on hold blood sugar is on the lower range INFECTIOUS DISEASE: Acute complicated cystitis Septic shock due to aspiration pneumonia Pneumonia Gram-positive and negative - Blood culture shows staph hominis, repeat blood culture negative - Urine culture shows E coli - Respiratory culture shows E coli, Klebsiella, Proteus sensitive to cefepime/meropenem/Zosyn - Continue IV cefepime MUSCULOSKELETAL: Left hip hemiarthroplasty 2020 DIET: Tube feed via NG tube DVT prophylax: Lovenox 40 mg sc daily GI prophylaxis: Protonix Bowel regimen: Hold due to diarrhoea Code status: Full code LINES/DRAINS/ACCESS: IV access: Peripheral line Drips: OFF Morales catheter DISPOSITION: Telemetry Critical care time spent more than 63 minutes, including patient care, chart review, and updating the family. Case discussed with Dr. Bonds Plan discussed with: Other (RN) Dietary Evaluation Review Recommendations by RD: Increase Calorie Intake Comments: 1) Increase TF regimen to 60 mL/hr goal rate as tolerated. Flush with 250 mL Q6H. Goal rate will provide 1728 kcals, 86g Pro, and 2160 mL free H2O per 24 hrs. Goal rate will meet ~97% estimated energy needs and ~75% estimated protein needs 2) Advance to 60g CCHO cardiac diet when medically feasible, pending ST approval 3) Follow-up with cardiology, pulmonology, and neurology 4) Continue to monitor I&O, labs, and skin integrity Expected Outcomes/Goals: 1) nutrition support to meet at least 75% estimated needs 2) diet to advance 3) labs to improve 4) f/u in 2-3 days Sepsis reassessment post fluid Is the fluid challenge complet: Yes Date of Reassessment: Oct 16, 2024 Time of Reassessment: 1300 Blood Culture Time: 1200 Time Antibiotics Given: 1230 Systolic BP: 134 Diastolic BP: 62 Blood Pressure Mean: 86 Respiration: 16 Respiratory Effort: Non-Labored, Labored Respiratory Pattern: Regular Oxygen Saturation: 99 Pulse Rate: 133 Pulse Location: Radial Pulse Strength: Normal Pulse Assessment Method: Palpation Pulse Rhythm: Regular Capillary Refill: < 3 seconds Heart Sounds: S1 & S2 Breath sounds: Clear Skin Moisture: Dry Skin Tugor: WNL Skin Color: Mottled JHONTOMEKA STALLWORTH RESIDENT Oct 24, 2024 18:24
[2024-10-25] VITALS (21 sets, daily range): BP systolic 120–141; BP diastolic 69–104; PULSE 95–114; RESP 14–18; TEMP 97.5–99; O2SAT 95–100
[2024-10-25 07:50] LABS: Anion Gap 6 (5-15); Carbon Dioxide 31 mmol/L (20-31); Chloride 106 mmol/L (98-107); Potassium 4.2 mmol/L (3.5-5.1); Sodium 143 mmol/L (136-145)
[2024-10-25 07:52] LABS: Hematocrit 33.7 % (36.0-46.0); Hemoglobin 11.5 g/dL (12.2-16.2); Mean Corpuscular Hemoglobin 33.9 pg (28.0-32.0); Mean Corpuscular Volume 99.2 fL (80.0-100.0); Nucleated Red Blood Cells % 0.1 %
[2024-10-25 07:56] LABS: BUN/Creatinine Ratio 32.1 (10.0-20.0); Blood Urea Nitrogen 18 mg/dL (9-23)
[2024-10-25 07:58] LABS: Calcium 8.2 mg/dL (8.7-10.4); Glucose 159 mg/dL (74-106)
--- NOTE | 2024-10-25 17:00 | DVHPN2 ---
Subjective This is a 84-year-old Thai speaking female with dementia, type 2 diabetes mellitus, AFib paroxysmal, hep C status, UTI, heart failure with a reduced ejection fraction-EF 40%, left hip amiodarone versus 2020 who has been in this facility since 10/16 for sepsis with aspiration pneumonia status post intubation, extubated 10/20. Patient was seen and examined on the ICU. She is alert and oriented X 0 and on nasal cannula 2 L. No overnight events . Family wanted hospice facility for the patient and consistent at social and political studies professor for working on hospice placement. Patient is waiting for hospice placement. 10/25: Patient condition remains unchanged, A&O times 0, mainly me risk balance, spontaneous eye movement,, awake. Continue primary team's plan of hospice placement, which is pending. Reviewed: Care Plan Changes from previous H/P or p: No Changes General: Per HPI Objective Vitals Vital Signs Date Time Temp Pulse Resp B/P (MAP) Pulse Ox O2 Delivery O2 Flow Rate FiO2 10/25/24 14:33 102 18 99 10/25/24 14:25 Nasal Cannula 2.0 10/25/24 14:25 28 10/25/24 13:00 97.7 136/104 (115) 97.7 Intake/Output Intake and Output 10/25/24 07:00 Intake Total 50 ml Output Total 500 ml Balance -450 ml Intake Oral 0 ml IV Total 50 ml Output Urine Total 500 ml Exam General Appearance: Alert, Oriented X0, No acute distress HEENT: Atraumatic, PERRLA, EOMI, Mucous membrane moist/pink Respiratory: Clear to auscultation, Normal air movement Cardiovascular: Regular rate, Normal S1, Normal S2, No murmurs, no chest wall tenderness Abdominal: Normal bowel sounds, Soft, No tenderness, No hepatospenomegaly, No masses Extremities: No clubbing, No cyanosis, bilateral pedal edema 1+, Normal pulses, No tenderness/swelling Skin: No rashes, No breakdown, No significant lesion Neuro: Strength at 4/5 X4 ext, Normal tone, Sensation intact, Cranial nerves 3- 12 NL, Reflexes 2+ Psych/Mental Status: Could not be assessed General Appearance: Other (Intubated and sedated) Lungs: Other (Bilateral rhonchi) Cardiovascular: Regular rate, Normal S1 Abdomen: Normal bowel sounds, Soft Extremities: No edema Medications Current Medications Medications Dose Ordered Sig/Bryon Route Start Time Stop Time Status Last Admin Dose Admin Sodium Chloride 10 ml Q8HR IV 10/16/24 14:00 10/25/24 13:15 10 ML Docusate Sodium 100 mg BIDPRN PRN PO 10/16/24 12:15 Acetaminophen 650 mg Q6HP PRN PO 10/16/24 12:15 Enoxaparin Sodium 40 mg DAILY SC 10/17/24 10:00 10/25/24 10:47 40 MG Pantoprazole Sodium 40 mg DAILY IV 10/17/24 10:00 10/25/24 10:47 40 MG Enteral Nutritional Formula 1,000 ml 30ML/HR GT 10/17/24 09:15 10/22/24 01:53 1,000 ML Diagnostic Test (Pha) 1 strip Q6HR 10/20/24 18:00 10/25/24 12:21 1 STRIP Insulin Human Regular Q6HR SC 10/20/24 18:00 10/25/24 12:22 3 UNITS Dextrose 50 ml UD PRN IV 10/20/24 13:45 Cefepime HCl 50 ml @ 12.5 mls/hr Q12HR IV 10/20/24 22:00 10/25/24 10:46 12.5 MLS/HR Levalbuterol HCl 0.625 mg Q4H NEB 10/20/24 22:00 10/25/24 14:25 0.625 MG Ipratropium [place] 0.5 mg Q4HR NEB 10/20/24 18:30 10/25/24 14:25 0.5 MG Amiodarone HCl 200 mg Q12HR PO 10/22/24 10:00 10/25/24 10:47 200 MG Losartan Potassium 50 mg DAILY PO 10/23/24 10:00 10/25/24 10:47 50 MG Hydralazine HCl 10 mg Q6HP PRN IV 10/23/24 07:00 10/23/24 22:01 10 MG Laboratory Results Laboratory Tests 10/25/24 06:29 Chemistry Test 10/25/24 06:29 Calcium Level 8.2 mg/dL (8.7-10.4) L Urinalysis Test 10/16/24 17:40 Urine Color Yellow (Yellow) Urine Clarity Turbid (Clear) H Urine pH 5.0 (5.0-9.0) Urine Specific [place] 1.019 (1.001-1.035) Urine Protein Trace (Negative) H Urine Ketones Negative (Negative) Urine Blood 2+ /uL (Negative) H Urine Nitrite Negative (Negative) Urine Bilirubin Negative (Negative) Urine Urobilinogen 2 mg/dL (Negative) H Urine Leukocyte Esterase Negative /uL (Negative) Urine RBC <1 /hpf (0 - 4) Urine Microscopic WBC 3 /HPF (0-5) Urine Squamous Epithelial Cells Few /hpf (<5) Urine Amorphous Crystals Few /hpf (None Seen) Urine Bacteria Few /hpf (None Seen) H Urine Hyaline Casts Few /lpf (0 - 2) Urine Mucus Few (None Seen) Urine Glucose 4+ mg/dL (Normal) H Microbiology Microbiology Date/Time Source Procedure Growth Status 10/17/24 12:05 Blood Blood Culture - Final NO GROWTH AFTER 5 DAYS OF INCUBATION. Complete 10/16/24 17:40 Urine - [place] Urine Culture - Final Escherichia coli Complete 10/16/24 13:47 Nose MRSA Screen - Final Complete 10/16/24 10:20 Sputum Expectorated Sputum Gram Stain - Final Complete 10/16/24 10:20 Respiratory Culture - Final Escherichia coli Klebsiella pneumoniae Proteus mirabilis Complete Labs and/or images reviewed: Labs reviewed by me, Image(s) reviewed by me Assessment/Plan Assessment/Plan NEURO: Acute metabolic encephalopathy Advanced dementia Bed-bound status Patient requires assistance feeding, required instructions for swallowing, and bed-bound CARDIOVASCULAR: Paroxysmal atrial fibrillation with RVR-chads Vasc score 6, now sinus rhythm Chronic systolic heart failure with reduced ejection fraction-EF 40%-NYHA class 3 Septic shock secondary to aspiration pneumonia NSTEMI likely type 2 Dyslipidemia Hypertension - Sinus rhythm today - Amiodarone 200 mg po bid - CHADS-VASc score 6-therapeutic anticoagulation not recommended at this time given comorbidities - Continue IV cefepime PULMONARY: Acute hypoxic respiratory failure status post intubation, extubated 10/20 Possible aspiration pneumonia Possible gram positive/Gram-negative pneumonia - IV vancomycin and IV cefepime - med neb with levalbuterol and ipratropium GASTROINTESTINAL: Hepatitis-C status Transaminitis 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 - Monitor LFTs GENITOURINARY: Acute kidney injury likely secondary to septic shock resolved Acute complicated cystitis - Strict I&Os - IV vanc and cefepime METABOLIC: Moderate protein calorie malnutrition, albumin Type 2 diabetes mellitus-A1c 8.4 Hyponatremia-resolved - Mild ISS - Lantus on hold blood sugar is on the lower range INFECTIOUS DISEASE: Acute complicated cystitis Septic shock due to aspiration pneumonia Pneumonia Gram-positive and negative - Blood culture shows staph hominis, repeat blood culture negative - Urine culture shows E coli - Respiratory culture shows E coli, Klebsiella, Proteus sensitive to cefepime/meropenem/Zosyn - Continue IV cefepime MUSCULOSKELETAL: Left hip hemiarthroplasty 2020 DIET: Tube feed via NG tube DVT prophylax: Lovenox 40 mg sc daily GI prophylaxis: Protonix Bowel regimen: Hold due to diarrhoea Code status: Full code LINES/DRAINS/ACCESS: IV access: Peripheral line Drips: OFF Morales catheter DISPOSITION: Telemetry Plan discussed with: Other Date of Service: Oct 25, 2024 Billing Provider: ROSSY CASILLAS MD Common Visit Codes: [id number] INP/OBS CARE(MOD) ROSSY CASILLAS MD Oct 25, 2024 17:00
[2024-10-26] VITALS (19 sets, daily range): BP systolic 124–141; BP diastolic 60–92; PULSE 89–108; RESP 16–22; TEMP 97.7–98.8; O2SAT 97–100
--- NOTE | 2024-10-26 18:11 | DVH ---
EXAM: XY CHEST XRAY 1 VIEW HISTORY: NG Tube placement confirmation TECHNIQUE: 1 view of the chest COMPARISON: XY CHEST PORTABLE on DOS: 10/22/24 FINDINGS/IMPRESSION: LUNGS: No pleural effusion, consolidation, or pneumothorax MEDIASTINUM: Unremarkable BONES: No acute osseous abnormality OTHER: Enteric tube extending into the proximal central body of the stomach. Status post removal of right internal jugular central venous catheter.
--- NOTE | 2024-10-26 18:44 | DVHPN2 ---
Subjective This is a 84-year-old Macedonian speaking female with dementia, type 2 diabetes mellitus, AFib paroxysmal, hep C status, UTI, heart failure with a reduced ejection fraction-EF 40%, left hip amiodarone versus 2020 who has been in this facility since 10/16 for sepsis with aspiration pneumonia status post intubation, extubated 10/20. Patient was seen and examined on the ICU. She is alert and oriented X 0 and on nasal cannula 2 L. No overnight events . Family wanted hospice facility for the patient and consistent at social professionals for working on hospice placement. Patient is waiting for hospice placement. 10/25: Patient condition remains unchanged, A&O times 0, mainly me risk balance, spontaneous eye movement,, awake. Continue primary team's plan of hospice placement, which is pending. 10/26: Continuing primary team plan with plan with the hospice placement pending Reviewed: Care Plan Changes from previous H/P or p: No Changes General: Per HPI Objective Vitals Vital Signs Date Time Temp Pulse Resp B/P (MAP) Pulse Ox O2 Delivery O2 Flow Rate FiO2 10/26/24 17:00 98.6 94 18 131/78 (95) 100 98.6 10/26/24 13:31 Nasal Cannula 2.0 10/26/24 13:31 28 Intake/Output Intake and Output 10/26/24 07:00 Intake Total 50 ml Output Total 500 ml Balance -450 ml Intake Oral 0 ml IV Total 50 ml Output Urine Total 500 ml Exam General Appearance: Alert, Oriented X0, No acute distress HEENT: Atraumatic, PERRLA, EOMI, Mucous membrane moist/pink Respiratory: Clear to auscultation, Normal air movement Cardiovascular: Regular rate, Normal S1, Normal S2, No murmurs, no chest wall tenderness Abdominal: Normal bowel sounds, Soft, No tenderness, No hepatospenomegaly, No masses Extremities: No clubbing, No cyanosis, bilateral pedal edema 1+, Normal pulses, No tenderness/swelling Skin: No rashes, No breakdown, No significant lesion Neuro: Strength at 4/5 X4 ext, Normal tone, Sensation intact, Cranial nerves 3- 12 NL, Reflexes 2+ Psych/Mental Status: Could not be assessed General Appearance: Other (Intubated and sedated) Lungs: Other (Bilateral rhonchi) Cardiovascular: Regular rate, Normal S1 Abdomen: Normal bowel sounds, Soft Extremities: No edema Medications Current Medications Medications Dose Ordered Sig/Bryon Route Start Time Stop Time Status Last Admin Dose Admin Sodium Chloride 10 ml Q8HR IV 10/16/24 14:00 10/26/24 12:28 10 ML Docusate Sodium 100 mg BIDPRN PRN PO 10/16/24 12:15 Acetaminophen 650 mg Q6HP PRN PO 10/16/24 12:15 Enoxaparin Sodium 40 mg DAILY SC 10/17/24 10:00 10/26/24 09:13 40 MG Pantoprazole Sodium 40 mg DAILY IV 10/17/24 10:00 10/26/24 09:13 40 MG Enteral Nutritional Formula 1,000 ml 30ML/HR GT 10/17/24 09:15 10/22/24 01:53 1,000 ML Diagnostic Test (Pha) 1 strip Q6HR 10/20/24 18:00 10/26/24 12:28 1 STRIP Insulin Human Regular Q6HR SC 10/20/24 18:00 10/26/24 12:37 2 UNITS Dextrose 50 ml UD PRN IV 10/20/24 13:45 Cefepime HCl 50 ml @ 12.5 mls/hr Q12HR IV 10/20/24 22:00 10/26/24 09:11 12.5 MLS/HR Levalbuterol HCl 0.625 mg Q4H NEB 10/20/24 22:00 10/26/24 13:31 0.625 MG Ipratropium [place] 0.5 mg Q4HR NEB 10/20/24 18:30 10/26/24 13:31 0.5 MG Amiodarone HCl 200 mg Q12HR PO 10/22/24 10:00 10/26/24 09:14 200 MG Losartan Potassium 50 mg DAILY PO 10/23/24 10:00 10/26/24 09:14 50 MG Hydralazine HCl 10 mg Q6HP PRN IV 10/23/24 07:00 10/23/24 22:01 10 MG Laboratory Results Laboratory Tests 10/25/24 06:29 Urinalysis Test 10/16/24 17:40 Urine Color Yellow (Yellow) Urine Clarity Turbid (Clear) H Urine pH 5.0 (5.0-9.0) Urine Specific [place] 1.019 (1.001-1.035) Urine Protein Trace (Negative) H Urine Ketones Negative (Negative) Urine Blood 2+ /uL (Negative) H Urine Nitrite Negative (Negative) Urine Bilirubin Negative (Negative) Urine Urobilinogen 2 mg/dL (Negative) H Urine Leukocyte Esterase Negative /uL (Negative) Urine RBC <1 /hpf (0 - 4) Urine Microscopic WBC 3 /HPF (0-5) Urine Squamous Epithelial Cells Few /hpf (<5) Urine Amorphous Crystals Few /hpf (None Seen) Urine Bacteria Few /hpf (None Seen) H Urine Hyaline Casts Few /lpf (0 - 2) Urine Mucus Few (None Seen) Urine Glucose 4+ mg/dL (Normal) H Microbiology Microbiology Date/Time Source Procedure Growth Status 10/17/24 12:05 Blood Blood Culture - Final NO GROWTH AFTER 5 DAYS OF INCUBATION. Complete 10/16/24 17:40 Urine - [place] Urine Culture - Final Escherichia coli Complete 10/16/24 13:47 Nose MRSA Screen - Final Complete 10/16/24 10:20 Sputum Expectorated Sputum Gram Stain - Final Complete 10/16/24 10:20 Respiratory Culture - Final Escherichia coli Klebsiella pneumoniae Proteus mirabilis Complete Labs and/or images reviewed: Labs reviewed by me, Image(s) reviewed by me Assessment/Plan Assessment/Plan NEURO: Acute metabolic encephalopathy Advanced dementia Bed-bound status Patient requires assistance feeding, required instructions for swallowing, and bed-bound CARDIOVASCULAR: Paroxysmal atrial fibrillation with RVR-chads Vasc score 6, now sinus rhythm Chronic systolic heart failure with reduced ejection fraction-EF 40%-NYHA class 3 Septic shock secondary to aspiration pneumonia NSTEMI likely type 2 Dyslipidemia Hypertension - Sinus rhythm today - Amiodarone 200 mg po bid - CHADS-VASc score 6-therapeutic anticoagulation not recommended at this time given comorbidities - Continue IV cefepime PULMONARY: Acute hypoxic respiratory failure status post intubation, extubated 10/20 Possible aspiration pneumonia Possible gram positive/Gram-negative pneumonia - IV vancomycin and IV cefepime - med neb with levalbuterol and ipratropium GASTROINTESTINAL: Hepatitis-C status Transaminitis 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 - Monitor LFTs GENITOURINARY: Acute kidney injury likely secondary to septic shock resolved Acute complicated cystitis - Strict I&Os - IV vanc and cefepime METABOLIC: Moderate protein calorie malnutrition, albumin Type 2 diabetes mellitus-A1c 8.4 Hyponatremia-resolved - Mild ISS - Lantus on hold blood sugar is on the lower range INFECTIOUS DISEASE: Acute complicated cystitis Septic shock due to aspiration pneumonia Pneumonia Gram-positive and negative - Blood culture shows staph hominis, repeat blood culture negative - Urine culture shows E coli - Respiratory culture shows E coli, Klebsiella, Proteus sensitive to cefepime/meropenem/Zosyn - Continue IV cefepime MUSCULOSKELETAL: Left hip hemiarthroplasty 2020 DIET: Tube feed via NG tube DVT prophylax: Lovenox 40 mg sc daily GI prophylaxis: Protonix Bowel regimen: Hold due to diarrhoea Code status: Full code LINES/DRAINS/ACCESS: IV access: Peripheral line Drips: OFF [place] catheter DISPOSITION: Telemetry Plan discussed with: Other Date of Service: Oct 26, 2024 Billing Provider: ROSSY CASILLAS MD Common Visit Codes: [id number] INP/OBS CARE(MOD) ROSSY CASILLAS MD Oct 26, 2024 18:44
[2024-10-26] MEDS ORDERED: DOCUSATE ORAL LIQUID 100 MG/10 ML UD NG PRN (19:45)
[2024-10-26] MEDS ORDERED: ACETAMINOPHEN 650 mg PER 20.3 mL UD NG PRN (19:45)
--- NOTE | 2024-10-26 21:19 | DVH ---
CHEST RADIOGRAPH Indication: Ng tubeplacement Technique: Single frontal view of the chest was obtained COMPARISON: XY CHEST XRAY 1 VIEW on DOS: 10/26/24 FINDINGS / IMPRESSION: Lines and Tubes: NG tube noted with its tip projecting over gastric body. Lungs: Mild subsegmental atelectasis/consolidation at left lung base. Right lung is clear. Pleura: Possible small left pleural fusion. No pneumothorax. Cardiomediastinal contours: Unremarkable
[2024-10-26] MEDS: AMIODARONE HCL 200 MG TAB NG SCH (22:06)
[2024-10-27] VITALS (19 sets, daily range): BP systolic 134–143; BP diastolic 76–86; PULSE 91–102; RESP 16–22; TEMP 97.8–98.7; O2SAT 95–100
[2024-10-27] MEDS: LOSARTAN POTASSIUM 50 MG TAB NG SCH (08:52)
--- NOTE | 2024-10-27 14:34 | DVHDSRES ---
Discharge Summary Date of Admission Resident Creating Document: TOMEKA TOMAS RESIDENT Oct 16, 2024 at 12:08 Date of Discharge: Oct 27, 2024 Admitting Diagnosis Acute metabolic encephalopathy Wounds: Deep tissue injury erythema on right heel and sacrum Labs/Diagnostic Data: Laboratory Results Test 10/27/24 11:28 10/25/24 06:29 10/23/24 02:56 10/22/24 00:18 POC Glucose 144 mg/dl (70-106) White Blood Count 7.1 10^3/uL (4.4-10.8) Red Blood Count 3.39 10^6/uL (4.0-5.20) Hemoglobin 11.5 g/dL (12.2-16.2) Hematocrit 33.7 % (36.0-46.0) Mean Corpuscular Volume 99.2 fL (80.0-100.0) Mean Corpuscular Hemoglobin 33.9 pg (28.0-32.0) Mean Corpuscular Hemoglobin Concent 34.2 g/dL (32.0-36.0) Red Cell Distribution Width 14.1 % (11.8-14.3) Platelet Count 188 10^3/uL (140-450) Mean Platelet Volume 7.7 fL (6.9-10.8) Neutrophils (%) (Auto) 76.3 % (37.0-80.0) Lymphocytes (%) (Auto) 13.6 % (10.0-50.0) Monocytes (%) (Auto) 9.3 % (0.0-12.0) Eosinophils (%) (Auto) 0.5 % (0.0-7.0) Basophils (%) (Auto) 0.3 % (0.0-2.0) Neutrophils # (Auto) 5.4 10 ^3/uL (1.6-8.6) Lymphocytes # (Auto) 1.0 10 ^3/uL (0.4-5.4) Monocytes # (Auto) 0.7 10 ^3/uL (0-1.3) Eosinophils # (Auto) 0 10 ^3/uL (0-0.8) Basophils # (Auto) 0 10 ^3/uL (0-0.2) Nucleated Red Blood Cells 0.1 % Sodium Level 143 mmol/L (136-145) Potassium Level 4.2 mmol/L (3.5-5.1) Chloride Level 106 mmol/L (98-107) Carbon Dioxide Level 31 mmol/L (20-31) Anion Gap 6 (5-15) Blood Urea Nitrogen 18 mg/dL (9-23) Creatinine 0.56 mg/dL (0.550-1.02) Glomerular Filtration Rate Calc 91 mL/min (>90) BUN/Creatinine Ratio 32.1 (10.0-20.0) Serum Glucose 159 mg/dL (74-106) Calcium Level 8.2 mg/dL (8.7-10.4) Random Vancomycin Level 13.9 ug/mL (5-10) Vancomycin Level Trough 30.2 ug/mL (5-10) Test 10/21/24 07:30 10/21/24 03:50 10/20/24 13:05 10/20/24 07:13 Blood Gas Specimen Type Arterial Blood Gas Sample Site Left radial Blood Gas Patient Temperature 37.0 Arterial Blood Date Drawn [id number] Arterial Blood pH 7.498 (7.350-7.450) Arterial Blood Partial Pressure CO2 31.3 mmHg (32.0-45.0) Arterial Blood Partial Pressure O2 98.9 mmHg (83.0-108.0) Arterial Blood HCO3 23.8 mmol/L (21.0-28.0) Arterial Blood Oxygen Saturation 97.3 % (94.0-98.0) Arterial Blood Base Excess 1.2 mmol/L (-2.0-3.0) Arterial Blood Oxyhemoglobin 96.9 % (94.0-98.0) Arterial Blood Carboxyhemoglobin 0.2 % (0.5-1.5) Arterial Blood Methemoglobin 0.2 % (0.0-1.5) Margarito Test Yes Blood Gas Total Hemoglobin 12.80 g/dL (12.0-16.0) Blood Gas Set Respiration Rate 12.0 Blood Gas Modality Mask - bipap FiO2 % 30.0 Blood Gas EPAP 5 Blood Gas IPAP 12 Magnesium Level 1.9 mg/dL (1.6-2.6) Total Bilirubin 0.6 mg/dL (0.2-1.0) Aspartate Amino Transferase (AST) 68 U/L (13-40) Alanine Aminotransferase (ALT) 86 U/L (7-40) Alkaline Phosphatase 185 U/L (46-116) Total Protein 6.4 g/dL (5.7-8.2) Albumin 2.7 g/dL (3.2-4.8) Tumor Marker Alpha Fetoprotein 2.3 ng/mL (0.0-8.7) Blood Gas Pressure Support 8 Blood Gas PEEP or CPAP 5.0 Blood Gas Tidal Volume 400.0 Test 10/17/24 17:40 10/17/24 12:16 10/17/24 03:09 10/16/24 17:40 Troponin I High Sensitivity 51 ng/L (</=34) Ammonia 27 umol/L (11-32) Vitamin B12 Level 1483 pg/mL (211-911) Thyroid Stimulating Hormone (TSH) 1.30 uIU/mL (0.55-4.78) Hemoglobin A1c 8.4 % A1C (<5.7) B-Type Natriuretic Peptide 64.44 pg/mL (0-100) Urine Color Yellow (Yellow) Urine Clarity Turbid (Clear) Urine pH 5.0 (5.0-9.0) Urine Specific [place] 1.019 (1.001-1.035) Urine Protein Trace (Negative) Urine Ketones Negative (Negative) Urine Blood 2+ /uL (Negative) Urine Nitrite Negative (Negative) Urine Bilirubin Negative (Negative) Urine Urobilinogen 2 mg/dL (Negative) Urine Leukocyte Esterase Negative /uL (Negative) Urine RBC <1 /hpf (0 - 4) Urine Microscopic WBC 3 /HPF (0-5) Urine Squamous Epithelial Cells Few /hpf (<5) Urine Amorphous Crystals Few /hpf (None Seen) Urine Bacteria Few /hpf (None Seen) Urine Hyaline Casts Few /lpf (0 - 2) Urine Mucus Few (None Seen) Urine Glucose 4+ mg/dL (Normal) Test 10/16/24 15:29 10/16/24 12:17 Lactic Acid Level 5.6 mmol/L (0.4-2.0) Prothrombin Time 10.8 sec (9.3-11.8) Prothrombin Time INR 1.02 (0.9-1.15) Activated Partial Thromboplast Time 23.9 SEC (24.5-34.5) Beta-Hydroxybutyric Acid 0.368 mmol/L (< 0.4) Other Laboratory Tests 10/25/24 06:29 Brief Hx & Hospital Course: Jose A Santos is an 84-year-old female with a history of dementia, type 2 diabetes mellitus, hypertension, and hyperlipidemia, who was brought to the emergency department by her son due to worsening altered level of consciousness and respiratory distress. Her son reported a progressive decline in her condition over the past year, with near-total inactivity, decreased oral intake over the past week, and complete cessation of eating and drinking for the past two days. She exhibited pooling of food and secretions in her mouth, increased confusion, and difficulty swallowing, raising concerns for aspiration. EMS noted an oxygen saturation of 80% on room air, which improved to 90% with 4L nasal cannula. Upon arrival, the patient was sedated, intubated, and placed on mechanical ventilation. Hospital course: Initial blood cultures revealed gram-positive cocci in chains and clusters, and respiratory cultures showed moderate growth of gram-negative rods. She was started on cefepime and vancomycin. Imaging showed no acute intracranial changes but chronic vascular findings consistent with her dementia. She was diagnosed with acute on chronic metabolic encephalopathy likely secondary to sepsis, and septic shock likely from aspiration pneumonia. BRENDA due to septic shock also improved and returned to baseline. She was on mechanical ventilation later extubated on 10/20 . Post exacerbation patient was on nasal cannula 2 L became more alert and oriented but could not communicate because of the language barrier as she is Georgian speaking. Downgraded the patient to telemetry and continued NG feeding as patient has advanced dementia and could not able to swallow in home. Follow up blood culture was negative, urine culture demonstrated E coli and respiratory culture showed Gram-negative pneumonia. Discontinued IV vancomycin and continued IV Cefepime. Nutritional support is provided via Glucerna through gastrostomy tube blood sugar was controlled with mild sliding scale of insulin. She is receiving prophylaxis for peptic ulcer disease with Protonix and VTE prophylaxis with Lovenox. Family meeting was done with son, [id number] Luisa who is bilingual and decided hospice facility for the patient and social and human services assistant was consulted for hospice placement. Patient is accepted in [facility] hospice facility and will be transported tomorrow around 10-11 a.m. on 10/28/2024. Diagnosis: Acute metabolic encephalopathy Acute hypoxic respiratory failure status post intubation, extubated 10/20 Possible aspiration pneumonia Possible gram positive/Gram-negative pneumonia Advanced dementia Bed-bound status Patient requires assistance feeding, required instructions for swallowing, and bed-bound Paroxysmal atrial fibrillation with RVR-chads Vasc score 6, now sinus rhythm with secondary hypercoagulable state Chronic systolic heart failure with reduced ejection fraction-EF 40%-NYHA class 3 Septic shock secondary to aspiration pneumonia NSTEMI likely type 2 Hepatitis-C status Transaminitis 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 Lungs: Left basilar subsegmental atelectasis. Pleura: No effusion. No pneumothorax. Cardiomediastinal contours: Unremarkable Bones: Unremarkable IMPRESSION: Endotracheal tube and right central venous catheter in satisfactory position. CLINICAL HISTORY: R/O DVT TECHNIQUE: Color and duplex doppler imagine of the bilateral lower extremity veins was performed. Vessel compression and augmentation if possible was also performed. COMPARISON: BI LOWER DVT on DOS: 06/19/20 FINDINGS: Right lower Extremity: Right common femoral vein: Normal compressibility and flow. Right superficial femoral vein: Normal compressibility and flow. Right popliteal vein: Normal compressibility and flow. Proximal calf veins demonstrate flow. Left lower Extremity: Left common femoral vein: Normal compressibility and flow. Left superficial femoral vein: Normal compressibility and flow. Left popliteal vein: Normal compressibility and flow. Proximal calf veins demonstrate flow. IMPRESSION: NO SONOGRAPHIC EVIDENCE FOR DEEP VENOUS THROMBOSIS IN THE BILATERAL LOWER EXTREMITY VEINS. EXAM: XY KUB ABDOMEN SINGLE VIEW HISTORY: hypoactive COMPARISON: PELVIS AP on DOS: 06/22/20 TECHNIQUE: Supine view of the abdomen FINDINGS/IMPRESSION: Nonobstructive bowel gas pattern noted. There is no evidence for pneumoperitoneum. No abnormal calcifications noted. Left hip arthroplasty. Mild stool burden of the ascending colon. Enteric tube in the left upper quadrant. ULTRASOUND ABDOMEN, LIMITED RIGHT UPPER QUADRANT: REASON FOR EXAM: hx hep c cirrhosis TECHNIQUE: Real-time sector scans in the transverse and longitudinal planes were obtained through the right upper quadrant of the abdomen. FINDINGS: Examination was difficult due to patient inability to follow commands and turn. The liver is diffusely echogenic. The liver surface appears nodular, consistent with cirrhosis. There is hepatopetal flow in the portal vein. There is no intrahepatic nor extrahepatic biliary ductal dilatation. The common bile duct measures 4 mm. There are gallstones and sludge within the gallbladder. There is no gallbladder wall thickening nor pericholecystic fluid. There is no sonographic Leon's sign. The visualized portion of the pancreas is unremarkable. The right kidney measures 8.7 cm. The left kidney measures 8.5 cm. No hydronephrosis or nephrolithiasis is identified. There is no evidence of right renal mass or cyst. The visualized portions of the abdominal aorta demonstrate no evidence of aneurysmal dilatation. The visualized inferior vena cava is unremarkable. There is no free fluid identified in the right upper quadrant. There is trace right pleural effusion. IMPRESSION: Cirrhotic liver morphology. Gallbladder contains stones and sludge. No sonographic leon's sign. Mildly atrophic kidneys. Condition at Discharge: Guarded Final Diagnosis/Problems List Acute metabolic encephalopathy Acute hypoxic respiratory failure status post intubation, extubated 10/20 Possible aspiration pneumonia Possible gram positive/Gram-negative pneumonia Advanced dementia Bed-bound status Patient requires assistance feeding, required instructions for swallowing, and bed-bound Paroxysmal atrial fibrillation with RVR-chads Vasc score 6, now sinus rhythm with secondary hypercoagulable state Chronic systolic heart failure with reduced ejection fraction-EF 40%-NYHA class 3 Septic shock secondary to aspiration pneumonia NSTEMI likely type 2 Hepatitis-C status Transaminitis 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 Acute kidney injury likely secondary to septic shock / VMN resolved Acute complicated cystitis Moderate protein calorie malnutrition, albumin Type 2 diabetes mellitus-A1c 8.4 Hyponatremia-resolved Dyslipidemia Hypertension Discharge Disposition: Hospice - Home Discharge Instruct/Medications Diet: Consistent carbohydrate Diet comment: NG tube feeding Activity: No Restrictions, As Tolerated Follow Up/Referral: Follow up with PCP in 1 week Medications: As per EMR Scheduled Atenolol (Atenolol), 1 TAB PO DAILYPRN, (Reported) Metformin Hydrochloride (Metformin Hydrochloride), 1 TAB PO BID, (Reported) Miscellaneous Medications Pravastatin Sodium (Pravachol Tablet), 1 TAB PO, (Reported) Discharge Statement: "Patient was advised to return to the ER or call 911 if any headaches, dizziness, shortness of breath, chest pain, abdominal pain, bleeding, fevers, or worsening of medical condition. Patient was counseled about treatment plan, medications, possible side effects, patientverbalized understanding. All questions were answered to the best of my ability. This discharge took greater then 30 minutes in planning, reviewing documentation, counseling the patient, and discussing with other team members." ASSESSMENT ASSESSMENT Assessment Acute metabolic encephalopathy TOMEKA TOMAS RESIDENT Oct 27, 2024 14:34
[2024-10-28] VITALS (8 sets, daily range): BP systolic 146; BP diastolic 83; PULSE 91–94; RESP 2–22; TEMP 97.6; O2SAT 99–100
[2024-10-28 05:58] LABS: Chloride 105 mmol/L (98-107); Potassium 4.1 mmol/L (3.5-5.1); Sodium 143 mmol/L (136-145)
[2024-10-28 05:59] LABS: Anion Gap 8 (5-15); Carbon Dioxide 30 mmol/L (20-31)
[2024-10-28 06:00] LABS: Nucleated Red Blood Cells % 0.1 %
[2024-10-28 06:02] LABS: Hematocrit 35.0 % (36.0-46.0); Hemoglobin 11.9 g/dL (12.2-16.2); Mean Corpuscular Hemoglobin 33.7 pg (28.0-32.0); Mean Corpuscular Volume 98.8 fL (80.0-100.0)
[2024-10-28 06:04] LABS: BUN/Creatinine Ratio 32.7 (10.0-20.0); Blood Urea Nitrogen 18 mg/dL (9-23)
[2024-10-28 06:12] LABS: Calcium 8.7 mg/dL (8.7-10.4); Glucose 165 mg/dL (74-106)
--- NOTE | 2024-10-28 19:14 | DVHPNRES ---
Progress Note Date Seen: Oct 28, 2024 Resident Creating Document: TOMEKA TOMAS RESIDENT Medical Necessity Reason Pt with a Central, PICC or Fol: Yes The following are medically ne: Central Line, Morales Catheter Subjective Review of Systems This is a 84-year-old [place] speaking female with dementia, type 2 diabetes mellitus, AFib paroxysmal, hep C status, UTI, heart failure with a reduced ejection fraction-EF 40%, left hip amiodarone versus 2020 who has been in this facility since 10/16 for sepsis with aspiration pneumonia status post intubation, extubated 10/20. Patient was seen and examined on the bed side. She is alert and oriented X 0 and on nasal cannula 2 L. No overnight events . Family wanted hospice facility for the patient and consistent at medical social worker for working on hospice placement. Patient is waiting for hospice placement. Objective vital signs Vital Sign Date Time Temp Pulse Resp B/P (MAP) Pulse Ox O2 Delivery O2 Flow Rate FiO2 10/28/24 10:43 91 22 100 10/28/24 10:40 146/83 1.0 24 10/28/24 10:35 Nasal Cannula 10/28/24 05:00 97.6 97.6 Total Intake and Output 10/27/24 10/27/24 10/28/24 15:00 23:00 07:00 Intake Total 50 ml 0 ml 365 ml Output Total 650 ml 600 ml Balance 50 ml -650 ml -235 ml Examination Physical examination: General Appearance: Alert, Oriented X0, No acute distress HEENT: Atraumatic, PERRLA, EOMI, Mucous membrane moist/pink Respiratory: Clear to auscultation, Normal air movement Cardiovascular: Regular rate, Normal S1, Normal S2, No murmurs, no chest wall tenderness Abdominal: Normal bowel sounds, Soft, No tenderness, No hepatospenomegaly, No masses Extremities: No clubbing, No cyanosis, bilateral pedal edema 1+, Normal pulses, No tenderness/swelling Skin: No rashes, No breakdown, No significant lesion Neuro: Strength at 4/5 X4 ext, Normal tone, Sensation intact, Cranial nerves 3- 12 NL, Reflexes 2+ Psych/Mental Status: Could not be assessed laboratory and microbiology Laboratory Tests 10/28/24 05:17 Test 10/28/24 05:17 Range/Units Serum Glucose 165 H 74-106 mg/dL Microbiology Date/Time Source Procedure Growth Status 10/17/24 12:05 Blood Blood Culture - Final NO GROWTH AFTER 5 DAYS OF INCUBATION. Complete 10/16/24 17:40 Urine - Morales Port Urine Culture - Final Escherichia coli Complete 10/16/24 13:47 Nose MRSA Screen - Final Complete 10/16/24 10:20 Sputum Expectorated Sputum Gram Stain - Final Complete 10/16/24 10:20 Respiratory Culture - Final Escherichia coli Klebsiella pneumoniae Proteus mirabilis Complete Labs and/or images reviewed: Labs reviewed by me, Image(s) reviewed by me Problem List/Assessment/Plan Problem List/Assessment/Plan Assessment and Plan: NEURO: Acute metabolic encephalopathy Advanced dementia Bed-bound status Patient requires assistance feeding, required instructions for swallowing, and bed-bound CARDIOVASCULAR: Paroxysmal atrial fibrillation with RVR-chads Vasc score 6, now sinus rhythm Chronic systolic heart failure with reduced ejection fraction-EF 40%-NYHA class 3 Septic shock secondary to aspiration pneumonia NSTEMI likely type 2 Dyslipidemia Hypertension - Sinus rhythm today - Amiodarone 200 mg po bid - CHADS-VASc score 6-therapeutic anticoagulation not recommended at this time given comorbidities - Continue IV cefepime PULMONARY: Acute hypoxic respiratory failure status post intubation, extubated 10/20 Possible aspiration pneumonia Possible gram positive/Gram-negative pneumonia - IV vancomycin and IV cefepime - med neb with levalbuterol and ipratropium GASTROINTESTINAL: Hepatitis-C status Transaminitis 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 - Monitor LFTs GENITOURINARY: Acute kidney injury likely secondary to septic shock resolved Acute complicated cystitis - Strict I&Os - IV vanc and cefepime METABOLIC: Moderate protein calorie malnutrition, albumin Type 2 diabetes mellitus-A1c 8.4 Hyponatremia-resolved - Mild ISS - Lantus on hold blood sugar is on the lower range INFECTIOUS DISEASE: Acute complicated cystitis Septic shock due to aspiration pneumonia Pneumonia Gram-positive and negative - Blood culture shows staph hominis, repeat blood culture negative - Urine culture shows E coli - Respiratory culture shows E coli, Klebsiella, Proteus sensitive to cefepime/meropenem/Zosyn - Continue IV cefepime MUSCULOSKELETAL: Left hip hemiarthroplasty 2020 DIET: Tube feed via NG tube DVT prophylax: Lovenox 40 mg sc daily GI prophylaxis: Protonix Bowel regimen: Hold due to diarrhoea Code status: Full code LINES/DRAINS/ACCESS: IV access: Peripheral line Drips: OFF Morales catheter DISPOSITION: Telemetry Critical care time spent more than 41 minutes, including patient care, chart review, and updating the family. Case discussed with Dr. Marcos Plan discussed with: Other (RN) Dietary Evaluation Review Recommendations by RD: Increase Calorie Intake Comments: 1) Increase TF regimen to 60 mL/hr goal rate as tolerated. Flush with 250 mL Q6H. Goal rate will provide 1728 kcals, 86g Pro, and 2160 mL free H2O per 24 hrs. Goal rate will meet ~97% estimated energy needs and ~75% estimated protein needs 2) Advance to 60g CCHO cardiac diet when medically feasible, pending ST approval 3) Follow-up with cardiology, pulmonology, and neurology 4) Continue to monitor I&O, labs, and skin integrity Expected Outcomes/Goals: 1) nutrition support to meet at least 75% estimated needs 2) diet to advance 3) labs to improve 4) f/u in 2-3 days Sepsis reassessment post fluid Is the fluid challenge complet: Yes Date of Reassessment: Oct 16, 2024 Time of Reassessment: 1300 Blood Culture Time: 1200 Time Antibiotics Given: 1230 Systolic BP: 134 Diastolic BP: 62 Blood Pressure Mean: 86 Respiration: 16 Respiratory Effort: Non-Labored, Labored Respiratory Pattern: Regular Oxygen Saturation: 99 Pulse Rate: 133 Pulse Location: Radial Pulse Strength: Normal Pulse Assessment Method: Palpation Pulse Rhythm: Regular Capillary Refill: < 3 seconds Heart Sounds: S1 & S2 Breath sounds: Clear Skin Moisture: Dry Skin Tugor: WNL Skin Color: Mottled TOMEKA TOMAS RESIDENT Oct 28, 2024 19:14
== END 2024-10-28 14:24 | disposition hospice, home (50) | DRG 720 ==
LOC: ER 09:30 → EDBD 09:30 → OVERFLOW 12:08 → ICU WEST 14:13 → TELE-EAST 10-23 23:17
PROVIDERS: ADMIT Internal Medicine; ATTEND Internal Medicine
PROC: 0BH17EZ Insertion of Endotracheal Airway into Trachea, Via Natural or Artificial Opening (ICD-10-PCS; principal; 2024-10-16)
PROC: 5A1955Z Respiratory Ventilation, Greater than 96 Consecutive Hours (ICD-10-PCS; 2024-10-16)
PROC: 02HV33Z Insertion of Infusion Device into Superior Vena Cava, Percutaneous Approach (ICD-10-PCS; 2024-10-16)
PROC: B548ZZA Ultrasonography of Superior Vena Cava, Guidance (ICD-10-PCS; 2024-10-16)
PROC: 5A09357 Assistance with Respiratory Ventilation, Less than 24 Consecutive Hours, Continuous Positive Airway Pressure (ICD-10-PCS; 2024-10-20)
PROC: 5A09357 Assistance with Respiratory Ventilation, Less than 24 Consecutive Hours, Continuous Positive Airway Pressure (ICD-10-PCS; 2024-10-21)
PROC: 05HF33Z Insertion of Infusion Device into Left Cephalic Vein, Percutaneous Approach (ICD-10-PCS; 2024-10-23)
PROC: B54NZZA Ultrasonography of Left Upper Extremity Veins, Guidance (ICD-10-PCS; 2024-10-23)
DX: A41.50 Gram-negative sepsis, unspecified (principal); J96.01 Acute respiratory failure with hypoxia; N17.0 Acute kidney failure with tubular necrosis; R65.21 Severe sepsis with septic shock; J69.0 Pneumonitis due to inhalation of food and vomit; G93.41 Metabolic encephalopathy; I21.A1 Myocardial infarction type 2; J15.9 Unspecified bacterial pneumonia; J15.69 Pneumonia due to other Gram-negative bacteria; E44.0 Moderate protein-calorie malnutrition; E87.3 Alkalosis; F03.90 Unspecified dementia, unspecified severity, without behavioral disturbance, psychotic disturbance, mood disturbance, and anxiety; E87.0 Hyperosmolality and hypernatremia; E87.6 Hypokalemia; J98.11 Atelectasis; E11.65 Type 2 diabetes mellitus with hyperglycemia; E78.2 Mixed hyperlipidemia; E87.1 Hypo-osmolality and hyponatremia; I48.0 Paroxysmal atrial fibrillation; I13.0 Hypertensive heart and chronic kidney disease with heart failure and stage 1 through stage 4 chronic kidney disease, or unspecified chronic kidney disease; E11.22 Type 2 diabetes mellitus with diabetic chronic kidney disease; N18.30 Chronic kidney disease, stage 3 unspecified; B19.20 Unspecified viral hepatitis C without hepatic coma; N30.00 Acute cystitis without hematuria; Z96.642 Presence of left artificial hip joint; I50.22 Chronic systolic (congestive) heart failure; K74.60 Unspecified cirrhosis of liver; D68.69 Other thrombophilia; Z68.22 Body mass index [BMI] 22.0-22.9, adult; Z98.51 Tubal ligation status; Z79.899 Other long term (current) drug therapy; Z74.01 Bed confinement status; Z79.84 Long term (current) use of oral hypoglycemic drugs
CPT/HCPCS: 31720; 36415; 36556; 36600; 70450; 71045; 74018; 76705; 80048; 80053; 80202; 81001; 82010; 82105; 82140; 82607; 82805; 82962; 83036; 83605; 83735; 83880; 84132; 84443; 84484; 85025; 85610; 85730; 87040; 87070; 87077; 87081; 87086; 87186; 87205; 93005; 93306; 93970; 94002; 94003; 94640; 94660; 96361; 96374; 99291; G0378; J0153; J0692; J1815; J2185; J2470; J2704; J3480